=== PATIENT | male | born 1935 | race Caucasian/White ===

== ENCOUNTER 2016-07-25 11:47 | Observation (INO) | payer MEDICARE ==
[~2016-07-25] VITALS: Ht 182.9 cm; Wt 83.0 kg
[2016-07-25] VITALS (8 sets, daily range): BP systolic 96–118; BP diastolic 67–81; PULSE 60–64; RESP 14–20; O2SAT 95–100
[~2016-07-25 11:47] MED LIST: AMIO200T PO; ASPI-973 PO; DOXY100C2 PO; FUR20 PO; HYDR12.55 PO; LOPE1TAB13 PO; LORA10CA PO; METO25TA6 PO; NITR0.4T6 SL; POTA20TA16 PO; SIMV40TA5 PO
--- NOTE | 2016-07-25 12:01 | ED.REPORT ---
HPI-Chest Pain 40 and Over Date of Service Jul 25, 2016 ED Provider: Johs Lott Patient is a 80 year old male with an extensive cardiac history who presents to the ED via EMS complaining of waxing and waning midline chest pain onset one week ago. His chest pain is worse with exertion and lasts for about 5 minutes after he begins to relax. Associated symptoms include vertigo, SOB, tingling in his legs from the knee down, and lightheadedness. He denies palpitations, cough , or any other symptoms. He has had similar chest pain previously but reports that Nitro does not provide relief. It was believed that his previous chest pain was due to his pacemaker. He regularly experiences vertigo and walks with a cane to prevent falls. Nursing Notes Stated Complaint: CHEST PAIN Chief Complaint: Chest Pain Nursing Notes Reviewed: Yes Allergies: Coded Allergies: lisinopril (Unverified Allergy, Unknown, 07/25/16) Patient states lisinopril makes him cough but he is currently taking lisinopril and denies having a cough Scheduled Acyclovir (Acyclovir) 400 Mg Tablet 400 MG PO BID Amiodarone (Amiodarone) 200 Mg Tablet 200 MG PO DAILY Aspirin (Aspirin) 81 Mg Tablet 81 MG PO DAILY Furosemide (Furosemide) 20 Mg Tab 20 MG PO DAILY Hydrochlorothiazide (Hydrochlorothiazide) 12.5 Mg Tablet 12.5 MG PO DAILY Loperamide/Simethicone (Imodium Multi-Symptom Rel Cplt) 1 Each Tablet 2 EACH PO AFTER EACH LOOSE Take 2 tablets orally with first loose stool, and one tablet 2 mg orally, after each next bowel movement, do not exceed 16 mg in 24 hours. Metoprolol Tartrate (Metoprolol Tartrate) 25 Mg Tablet 12.5 MG PO BID Potassium Chloride (Potassium Chloride) 20 Meq Tab.er.prt 20 MEQ PO BID TAKE WITH FOOD Simvastatin (Simvastatin) 40 Mg Tablet 20 MG PO HS Scheduled PRN Nitroglycerin SL (Nitroglycerin SL) 0.4 Mg Tab.subl 0.4 MG SL Q5MIN PRN PRN For Chest Pain General Time Seen by MD: 12:00 Chief Complaint Chest pain Hx Obtained From: Patient Arrived By: Ambulance Sudden in Onset?: Yes Onset Occurred: 1 week ago Symptom Duration: Since onset Past Medical History Past Medical History Notes: ED visit 9/28/15 for AICD firing and CP, AICD interrogated and discharge was for tachydysrhythmia, patient's furosemide was discontinued, patient is advised to continue aspirin lactone and HCTZ Past Medical History Per old reports: Admit in 07/2014 for AICD firing from [facility] Coronary artery disease, with a history of non ST elevation [place] in 2008 with balloon angioplasty and stenting of the LAD. 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 Dyslipidemia. Untreated sleep apnea. Uvulectomy. [place] x2 with angioplasty Right ventricular aneurysm Reports: Cancer (melanoma on back), Hyperlipidemia, Hypertension Past Surgical History Ablation of right ventricular apical ventral tachycardia 02/26/2015 Uvulectomy Aortic Valve Replacement - bioprosthetic Reports: Cholecystectomy Reports: Pacemaker insertion Smoking History Former Smoker Social History Alcohol Use: "Social" Drug Use: Denies drug use Other Social History: Good social support, , Local resident Ambulatory Status Cane Review of Systems +tingling sensation in legs Constitutional: Denies: Fever Respiratory: Reports: Shortness of breath, Denies: Non-productive cough Cardiovascular: Reports: Chest pain, Denies: Palpitations Neurologic: Reports: Lightheaded Complete sys rev & neg: except as marked. Physical Exam Initial Vital Signs Vital Signs (First) Date Time Temp Pulse Resp B/P Pulse Ox O2 Delivery O2 Flow Rate FiO2 07/25/16 12:05 36.9 61 14 99/67 100 Room Air Initial VS: Reviewed Head / Eyes: Atraumatic, Normocephalic Neck: Full range of motion Skin: Warm, Dry Neurologic: Alert, Oriented, Nonfocal Psychiatric: Mood/affect normal, Behavior normal, Normal thought content General/Constitutional: Awake, Alert, No acute distress, Well appearing, Well developed Respiratory / Chest: No respiratory distress Pacemaker insertion L upper chest wall Cardiovascular: Heart rate NL Abdomen: Soft, Non-tender Interpretation & Diagnostics Medtr[employer] interrogation reveals no episodes of vfib or vtach Lab Results Interpretation Result Diagram: 07/25/16 1200 07/25/16 1200 Test 07/25/16 12:00 07/25/16 12:01 07/25/16 14:10 White Blood Count 8.0th/mm3 (3.8-10.1) Red Blood Count 4.89mil/mm3 (4.40-5.80) Hemoglobin 13.3g/dL (13.8-17.2) Hematocrit 42.7% (41.0-50.0) Mean Corpuscular Volume 87.3fL (81-100) Mean Corpuscular Hemoglobin 27.2pg (27.0-35.0) Mean Corpuscular Hemoglobin Concent 31.1% (32.0-37.0) Red Cell Distribution Width 15.4% (12.3-15.4) Platelet Count 223bil/L (150-400) Neutrophils (%) (Auto) 70.7% (40-74) Lymphocytes (%) (Auto) 18.3% (14-46) Monocytes (%) (Auto) 8.5% (4-12) Eosinophils (%) (Auto) 1.6% (0-5) Basophils (%) (Auto) 0.5% (0-3) D-Dimer 1.9mg/L (<0.50) Sodium Level 140mEq/L (134-144) Potassium Level 4.1mEq/L (3.5-5.2) Chloride Level 99mEq/L (97-108) Carbon Dioxide Level 26mmol/L (18-29) Blood Urea Nitrogen 24mg/dL (8-27) Creatinine 1.27mg/dL (0.76-1.27) Estimat Glomerular Filtration Rate 58mL/min (>59) Glucose Level 118mg/dL (60-99) Calcium Level 9.4mg/dL (8.5-10.1) Magnesium Level 2.3mg/dL (1.6-2.6) Total Bilirubin 1.5mg/dL (0.0-1.2) Aspartate Amino Transf (AST/SGOT) 26U/L (0-50) Alanine Aminotransferase (ALT/SGPT) 18U/L (0-44) Alkaline Phosphatase 114U/L (25-160) Pro-B-Type Natriuretic Peptide 810.8pg/mL (0-486) Total Protein 7.8g/dL (6.4-8.4) Albumin 4.5g/dL (3.4-5.0) Urine Color Straw (YELLOW) Urine Appearance Hazy (CLEAR,HAZY) Urine pH 6.0 (5.0-8.0) Urine Specific [place] 1.015 (1.003-1.035) Urine Protein Negativemg/dL (NEG,TRACE) Urine Glucose (UA) Negativemg/dL (NEGATIVE) Urine Ketones Negativemg/dL (NEGATIVE) Urine Occult Blood Negative (NEGATIVE) Urine Nitrite Negative (NEGATIVE) Urine Bilirubin Negative (NEGATIVE) Urine Urobilinogen Normalmg/dL (NORMAL) Urine Leukocyte Esterase Negative (NEGATIVE) Urine RBC 0-2/hpf (0-2) Urine WBC 0-5/hpf (0-5) Urine Epithelial Cells Occasional/hpf (NONE-MOD) Urine Crystals None seen (NONE SEEN) Urine Bacteria None/hpf (NONE-FEW) Urine Hyaline Casts Occasional/lpf (NONE) Urine Granular Casts None seen (NONE SEEN) Urine Waxy Casts None seen (NONE SEEN) Urine Red Blood Cell Casts None seen (NONE SEEN) Urine White Blood Cell Casts None seen (NONE SEEN) Urine Mucus None seen (None Seen) Urine Trichomonas None seen (NONE SEEN) Urine Yeast None (NONE SEEN) Urinalysis Comment None Urine Culture Reflexed Not indicated Hold Urine Received (Received) Activated Partial Thromboplast Time 25.4sec (22.8-33.0) Troponin T < 0.010ug/L (0.0-0.011) ECG Interpretation ECG Interpretation: paced rhythm rate 60 Time: 12:53 Interpreted by: ED physician X-Ray Chest Interpretation Chest Xray Interpretation: IMPRESSION: No acute cardiopulmonary disease. Dictated by: Kalen Chaudhary [facility] Interpreted: Michael Marcial MD on 07/25/2016 at 12:50 Transcribed by: HELENA on 07/25/2016 at 12:50 View: Portable, 1 view Interpretation / Wet Read by: Interpret - Radiologist CT Chest Interpretation IMPRESSION: 1. No pulmonary embolus. 2. No acute lung opacities. 3. 2.3 x 1.3 cm right adrenal adenoma. 4. Hypo-attenuating lesion with central calcification in the left lobe liver. Lesion cannot be definitively characterize without the benefit of intravenous contrast. Recommend dedicated CT scan utilizing multiphase hepatic protocol for further evaluation. 4. 1.3 cm hypoattenuating lesion in the right kidney which may represent a cyst. Evaluation time of multiphase CT scan of the liver is recommended. 5. Atherosclerosis including the coronary vasculature. Dictated by: Clau Duff MD, PhD on 07/25/2016 at 15:17 Approved by: Clau Duff MD, PhD on 07/25/2016 at 15:17 Study type: CT pulm angiogram Interpretation / Wet Read by: Interpret - Radiologist Re-Eval/Medical Decision Med Decision/Clinical Course Concern for unstable angina versus other potential causes. Patient will be heparinized in the ER. Pain is adequately controlled with morphine and some nitroglycerin. Patient will be admitted and followed by cardiology. Time of Eval: 13:11 Re-Evaluation/Progress Note: Patient reports that he was diagnosed with melanoma one year ago. It is on his back directly behind where his chest pain is. Time of Eval: 13:54 Re-Evaluation/Progress Note: Rechecked patient. He states that he feels lightheaded. Discussed desire for admission. Patient understands and agrees with plan. All questions addressed at this time. Consultation #1: Referral / Consult Name: Mahin Berg MD Consulted With: Cardiology Call Returned at: 14:01 Supervisor Finishing Department: Agrees with eval, Agrees with plan Note: Discussed patient's case. Agrees to consult. Suggests Heprin. Consultation #2: Referral / Consult Name: Dena Naylor MD Consulted With: Hospitalist Call Returned at: 14:34 Supervisor Finishing Department: Will see patient, Agrees with eval, Agrees with plan, Accepts admit Note: Discussed patient's case, accepts admit. Counseled Regarding: Diagnosis, Lab results, Need for admission Discharge & Departure Primary Impression: Chest pain Additional Impression: Near syncope Disposition: ADMITTED TO HOSPITAL Referrals: Jorge Xie MD (PCP) Crit Care Except Billable Proc Time Spent: 30-74 minutes Services Performed: Patient management by me, Time spent at bedside, Reviewing test results Critical Care Notes: See MDM Scribe Attestation Portions of this note were transcribed by Laura Sullivan. I, Dr. Lott personally performed the history, physical exam and medical decision-making; I reviewed and confirmed the accuracy of the information in the transcribed note. Signed by: Laura Sullivan 07/25/16, [id number] copies to: Jorge Xie MD, Timothy S DO Jul 25, 2016 12:01 LAURA SULLIVAN Jul 25, 2016 12:22
[2016-07-25] MEDS ORDERED: Ondansetron 2 mg/mL 2 mL Inj IVPUSH ONE (12:15)
[2016-07-25] MEDS ORDERED: Nitroglycerin 2% 1 Gm Ointment TOPICAL ONE (12:15)
[2016-07-25 12:32] LABS: BASOPHILS % (AUTO) 0.5 % (0-3); EOSINOPHILS % (AUTO) 1.6 % (0-5); MONOCYTES % (AUTO) 8.5 % (4-12); Mean Corpuscular Hemoglobin 27.2 pg (27.0-35.0); Mean Corpuscular Volume 87.3 fL (81-100); NEUTROPHILS % (AUTO) 70.7 % (40-74); Platelet Count 223 bil/L (150-400)
[2016-07-25 12:40] LABS: TROPONIN T 0.01 ug/L (0.0-0.011)
[2016-07-25 12:51] LABS: Magnesium 2.3 mg/dL (1.6-2.6)
--- NOTE | 2016-07-25 12:51 | DRSVH ---
PROCEDURE: X-RAY CHEST ONE VIEW, PORTABLE ([id number]) INDICATIONS: chest pain TECHNIQUE: One view of the chest was acquired. COMPARISON: [facility], CR, XR CHEST 2VW, 10/27/2015, 6:45. [facility], CR, XR CHEST 1VW (PORTABLE), 10/26/2015, 12:40. FINDINGS: Surgical changes and devices: Stable positioning of left chest AICD. Lungs and pleura: No pleural effusions or pneumothorax. Lungs are clear. Mediastinum: Mediastinal contours appear normal. Heart size is prominent. Bones and chest wall: No suspicious bony lesions. Overlying soft tissues appear unremarkable. IMPRESSION: No acute cardiopulmonary disease. Dictated by: Kalen Chaudhary RRCaro Interpreted: Michael Marcial MD on 07/25/2016 at 12:50 Transcribed by: HELENA on 07/25/2016 at 12:50 Approved by: Michael Marcial M.D. on 07/29/2016 at 11:33
[2016-07-25] MEDS ORDERED: Heparin 25K Unit/500mL 0.45 NS 25,000 UNIT in IV Premix 1 EACH IV ONE (14:00)
[2016-07-25] MEDS ORDERED: Heparin 5,000 Unit/mL Inj IVPUSH ONE (14:00)
[2016-07-25 15:15] LABS: APPEARANCE,URINE HAZY (CLEAR,HAZY); COLOR,URINE STRAW (YELLOW); OCCULT BLOOD,URINE NEGATIVE (NEGATIVE); UROBILINOGEN,URINE NORMAL (NORMAL)
--- NOTE | 2016-07-25 15:18 | DRSVH ---
PROCEDURE: CT ANGIO CHEST PULMONARY EMBOLISM ([id number]) INDICATIONS: chest pain, cancer, elevated ddimer TECHNIQUE: After the administration of intravenous contrast, 2 mm thick sections acquired from the pulmonary api philip to the posterior costophrenic angles. 3-dimensional maximum intensity projection (MIP) coronal a nd sagittal reformats were then acquired through the thorax. For radiation dose reduction, the follo wing was used: automated exposure control, adjustment of mA and/or kV according to patient size. COMPARISON: None. FINDINGS: Image quality: Excellent. Pulmonary arteries: Pulmonary arteries are normal in size, and demonstrate no intraluminal filling d efects to suggest central pulmonary embolism. Lungs and pleura: Lungs are clear. No pleural effusions or pneumothorax. Central and peripheral ai rways are patent. Mediastinum: Left chest wall cardiac pacer is noted. Aortic valve prosthesis is noted. Heart size is normal, without pericardial effusion. Dense atherosclerotic calcifications within the coronary vascul ature. No mediastinal or hilar adenopathy. Thoracic aorta is normal in caliber and enhancement. Eso phagus is normal in caliber, without hiatal hernia. Bones and chest wall: No suspicious bony lesions. Ribs and thoracic spine appear intact throughout. Thyroid gland is within normal limits. No axillary or supraclavicular adenopathy. Abdomen: There is a 2.3 x 1.3 cm low-density right adrenal nodule has imaging characteristics most co mpatible with an adenoma. Exophytic, hypo-attenuating lesion noted in the superior pole of the right kidney which may represent a cyst, however lesion cannot be definitively characterize without benefit of intravenous contrast. There is a 1.9 x 3.7 cm hypoattenuating lesion with central calcification i n the anterior margin of the left lobe of the liver. Desiccation of the tail of pancreas compatible s equela chronic pancreatitis.. IMPRESSION: 1. No pulmonary embolus. 2. No acute lung opacities. 3. 2.3 x 1.3 cm right adrenal adenoma. 4. Hypo-attenuating lesion with central calcification in the left lobe liver. Lesion cannot be defini tively characterize without the benefit of intravenous contrast. Recommend dedicated CT scan utilizin g multiphase hepatic protocol for further evaluation. 4. 1.3 cm hypoattenuating lesion in the right kidney which may represent a cyst. Evaluation time of m ultiphase CT scan of the liver is recommended. 5. Atherosclerosis including the coronary vasculature. Dictated by: Clau Duff MD, PhD on 07/25/2016 at 15:17 Approved by: Clau Duff MD, PhD on 07/25/2016 at 15:17
[2016-07-25] MEDS ORDERED: ACYC400T2 PO (15:20)
--- NOTE | 2016-07-25 15:40 | PCM.HPMED ---
Subjective Date of Service Jul 25, 2016 Primary Provider: Admitting Physician: Primary Care Physician: Jorge Xie MD Attending Physician: Chief Complaint: Chest pain HISTORY was OBTAINED FROM PATIENT / MEDITECH NOTES History of present illness 72-year-old male with chest pain, waxing and waning x 1 week, associated SOB, across the upper chest dull ache anterior wall, better w/ nitroglycerine. Additional right lower rib chest dull ache. no heavy lifting. no leg swelling. ongoing lighteheadness currently. In the ER status post nitro paste, BP 96/81, heart rate 64, 99% on room air. BNP 810, motion picture operator see the patient in the morning, CT PE was negative Review of Systems - none of the following - F/C/sick contact / wt change/ RODRIGUEZ / cough / / / rash hearing deficit uses cane - chronic vertigo, chronic leg paresthesia FAMILY HX MOTHER NE SOCIAL HX distant smoker MEDICATIONS Amiodarone (Amiodarone) 200 Mg Tablet 200 MG PO BID Aspirin (Aspirin) 81 Mg Tablet 81 MG PO DAILY Doxycycline Hyclate (Doxycycline Hyclate) 100 Mg Capsule 100 MG PO DAILY Furosemide (Furosemide) 20 Mg Tab 20 MG PO DAILY Hydrochlorothiazide (Hydrochlorothiazide) 12.5 Mg Tablet 12.5 MG PO DAILY Loperamide/Simethicone (Imodium Multi-Symptom Rel Cplt) 1 Each Tablet 2 EACH PO AFTER EACH LOOSE Take 2 tablets orally with first loose stool, and one tablet 2 mg orally, after each next bowel movement, do not exceed 16 mg in 24 hours. Loratadine (Claritin) 10 Mg Capsule 10 MG PO DAILY Metoprolol Tartrate (Metoprolol Tartrate) 25 Mg Tablet 12.5 MG PO BID Potassium Chloride (Potassium Chloride) 20 Meq Tab.er.prt 20 MEQ PO BID TAKE WITH FOOD Simvastatin (Simvastatin) 40 Mg Tablet 20 MG PO HS Miscellaneous Medications Nitroglycerin SL (Nitroglycerin SL) 0.4 Mg Tab.subl 0.4 MG SL Past Medical History: V. tach 2012, pacemaker, defibrillator, ablation, ED visit 04/06/15 for AICD firing and CP-furosemide was discontinued, continue aspirin spironolactone and HCTZ Admit in 07/2014 for AICD firing from [facility] NSTEMI 2008 stenting LAD. Aortic stenosis with AVR replacement (bioprosthetic) Arthritis Dyslipidemia.HTN Untreated sleep apnea. Uvulectomy. [place] x2 with angioplasty Right ventricular aneurysm Cancer (melanoma on back - did not want further invasive testing as recommended by planer setup operator Cholecystectomy Cataracts left Sinus congestion BPH Depression Allergies Coded Allergies: lisinopril (Unverified Allergy, Unknown, 07/25/16) Patient states lisinopril makes him cough but he is currently taking lisinopril and denies having a cough PMH Social History Hx Alcohol Use: Yes Hx Substance Use: No Hx Tobacco Use: Yes (quit 19 yrs ago) Smoking Status: Former Smoker Exam Vital Signs Vital Sign - Last Date Time Temp Pulse Resp B/P Pulse Ox O2 Delivery O2 Flow Rate FiO2 07/25/16 14:16 36.8 61 20 96/81 99 Room Air Lab and Diagnostics Labs Exam on admission on RA NAD A and O x 3 mood affect WNL NC/AT no icterus no injected eyes EOMI PERRL /no pharyngeal lesions/ no oral lesions / hearing impaired w/ hearing aide Supple neck CTAB equal chest rise / no accessory muscle use / speaks in full sentences / no rrw RRR S1 S2 / no mrg / 2+ radial pulses Soft nt nd + BS no hepatosplenomegaly No edema no cyanosis no ecchymosis of lower extremities No rash / no jaundice ROBERSON no tenderness to Right lower chest pressure EKG vpaced CXR neg acute UA pending LFT bili 1.5 Trop neg x 2 within 2 hours EKG vpaced IMPRESSION: 1. No pulmonary embolus. 2. No acute lung opacities. 3. 2.3 x 1.3 cm right adrenal adenoma. 4. Hypo-attenuating lesion with central calcification in the left lobe liver. Lesion cannot be definitively characterize without the benefit of intravenous contrast. Recommend dedicated CT scan utilizing multiphase hepatic protocol for further evaluation. 4. 1.3 cm hypoattenuating lesion in the right kidney which may represent a cyst. Evaluation time of multiphase CT scan of the liver is recommended. 5. Atherosclerosis including the coronary vasculature. Result Diagram: 07/25/16 1200 07/25/16 1200 Assessment & Plan Active issues and reason for admission 80-year-old man with ACS admission history of V. tach/pacer/aortic bioprosthetic valve/LAD stent. Chest pain -- Heparin drip, Nitropaste limited by low blood pressure, morphine, serial troponin, echo pending, statin -- Dr. schuster /cardiology pending Elevated bilirubin/liver nodule noted, known melanoma, declined further evaluation as recommended by his planer setup operator --discuss w/ radiologist in morning for recommendations of serial CT, patient will decline invasive procedures -- Follow up with outpatient PCP/GI Adrenal and kidney nodule/cyst, -- Monitor follow-up as outpatient. Chronic issues known prior to admission, present on admission V. tach 2012, pacemaker, defibrillator, ablation, ED visit 04/06/15 for AICD firing and CP-furosemide was discontinued, continue aspirin spironolactone and HCTZ Admit in 07/2014 for AICD firing from [facility] NSTEMI 2008 stenting LAD. Aortic stenosis with AVR replacement (bioprosthetic) Arthritis Dyslipidemia.HTN Untreated sleep apnea. Uvulectomy. [place] x2 with angioplasty Right ventricular aneurysm Cancer (melanoma on back) Cholecystectomy Cataracts left Sinus congestion BPH Depression Chronic pancreatitis on CT Diet nothing by mouth midnight DVT prophylaxis heparin drip already Code full Disposition obs Assessment and plan were discussed with patient. Dena Naylor MD Jul 25, 2016 15:40
--- NOTE | 2016-07-25 17:40 | NUR ---
Arrival to unit Patient arrived to unit in a stable condition. Heparin gtt currently infusing at max rate of 1,000 units per hour. All vital signs stable and within normal limits. Reports 2/10 dull chest pain. Nitro paste on.
[2016-07-26] VITALS (7 sets, daily range): BP systolic 101–125; BP diastolic 66–84; PULSE 60–67; RESP 16–20; O2SAT 96–99
[2016-07-26] MEDS ORDERED: Heparin 25K Unit/500mL 0.45 NS 25,000 UNIT in IV Premix 1 EACH IV SCH (00:15)
[2016-07-26] MEDS ORDERED: Heparin Protocol Boluses IVPUSH PRN (00:25)
[2016-07-26 03:01] LABS: BASOPHILS % (AUTO) 0.4 % (0-3); EOSINOPHILS % (AUTO) 1.6 % (0-5); MONOCYTES % (AUTO) 8.5 % (4-12); Mean Corpuscular Hemoglobin 26.6 pg (27.0-35.0); Mean Corpuscular Volume 86.4 fL (81-100); NEUTROPHILS % (AUTO) 62.1 % (40-74); Platelet Count 193 bil/L (150-400)
[2016-07-26 03:46] LABS: Magnesium 2.4 mg/dL (1.6-2.6); TROPONIN T 0.01 ug/L (0.0-0.011)
--- NOTE | 2016-07-26 04:25 | NUR ---
Heparin Gtt/orders. pt arrived on floor w heparin Gtt @ 1000, set of labe ordered , no Heparin Cardiac Protocol ordered , paged Hospitalist for orders , slight in adjustment of Gtt due to lack of odreds, . last Ptt heparin, 32. following protocol . Pt is A&O x3, using call light appropriately. room air , substernal chest pain has subsided to 1/10, NPO pending possible labor relations officer in AM . Heparin presently running @ 1200 U/Hr. Tele: V-paced
--- NOTE | 2016-07-26 10:20 | NUR ---
Case Management: UVALDO and Medicare Part D to pt. 09:25. Екатерина FINN, RN
--- NOTE | 2016-07-26 13:07 | DRSVH ---
[facility] [address] [place] [address] Echocardiogram Report Name: MARGARETH LOCKETT MStudy Date: 07/26/2016 Height: 72 in Hospital Exam Location: [facility] Weight: 184 lb Gender: Male BSA: 2.1 m2 : 1935 Age: 80 yrs BP: 105/69 mmHg Reason For Study: Chest pain Ordering Physician: Performed By: Freedom Ryan Referring Physician: JAMES BUNDY Interpretation Summary The left ventricular cavity is small. Left ventricular systolic function is mild to moderately reduced. The ejection fraction is estimated to be 40-45%, which is unchanged since prior study. There is a significant dyssynchronous contraction pattern due to the paced rhythm. Flattened septum is consistent with RV volume overload. The right ventricle is severely dilated. There is a pacemaker lead in the right ventricle. Right ventricular systolic function is severely reduced. This is unchanged compared to the previous study. The right ventricular systolic pressure is estimated at 25 mmHg assuming a right atrial pressure of 15 mm Hg. The left atrial size is normal. The right atrium is severely dilated. There is a bioprosthetic aortic valve. The gradients through the prosthetic aortic valve are within the normal range for this type of valve. There is severe tricuspid regurgitation. There has been no significant change since the previous study. There is no other significant valvular heart disease. The ascending aorta is mildly enlarged. Procedure: A two-dimensional transthoracic echocardiogram with color flow and Doppler was performed. The study quality was technically good. Comparison is made with the echocardiogram of 03/20/15. The patient has a paced rhythm. Left Ventricle: The left ventricular cavity is small. There is borderline concentric left ventricular hypertrophy. Left ventricular systolic function is mild to moderately reduced. The ejection fraction is estimated to be 40- 45%. There is a significant dyssynchronous contraction pattern due to the paced rhythm. Flattened septum is consistent with RV volume overload. Right Ventricle: The right ventricle is severely dilated. There is a pacemaker lead in the right ventricle. Right ventricular systolic function is severely reduced. This is unchanged compared to the previous study. Atria: The left atrial size is normal. The right atrium is severely dilated. There is no Doppler evidence for an atrial septal defect. Mitral Valve: The mitral valve is grossly normal. There is mild mitral annular calcification. There is trace mitral regurgitation. Aortic Valve: There is a bioprosthetic aortic valve. The gradients through the prosthetic aortic valve are within the normal range for this type of valve. No aortic regurgitation is present. Tricuspid Valve: The tricuspid annulus is dilated. There is severe tricuspid regurgitation. There has been no significant change since the previous study. The right ventricular systolic pressure is estimated at 25 mmHg assuming a right atrial pressure of 15 mm Hg. Pulmonic Valve: The pulmonic valve leaflets are thin and pliable; valve motion is normal. There is trace pulmonic regurgitation. There is no other significant valvular heart disease. Great Vessels: The aortic root is normal size. The ascending aorta is mildly enlarged. The pulmonary artery is normal size. The IVC is dilated (diameter is greater than 2.1 cm) and it collapses less than 50% with a sniff. This suggests a high right atrial pressure of 15 mm Hg. Pericardium/ Pleura There is no pericardial effusion. There is no pleural effusion. MMode/2D Measurements & Calculations LVIDd: 5.3 cm RA long axis LVOT diam LVIDs: 3.5 cm LA A2 area: 13.9 cm FS: 33.3 % LA A4 area: 24.0 cm RA area AoV Opening EPSS: 1.1 cm LA length (vol): 5.1 cm IVSd: 1.1 cm LA vol: 55.5 ml : 41.1 cm asc Aorta LVPWd: 0.99 cm LA vol index RA vol Diam: 3.6 cm : 191.ml RA IVC diam: 2.3 cm : 93.1 mm2 LV gonzalez. diameter/BSA LV sys. diameter/BSA (cm/m^2): 2.6 (cm/m^2): 1.7 Doppler Measurements & Calculations Ao V2 max: 243.7 cm/secMV E max girish MV E/A: 0.95 TR max girish Ao max P.8 mmHg : 73.9 cm/sec Med Peak E' Girish : 161.1 cm/sec Ao mean P.4 mmHg MV A max girish TR max PG LVOT Max Girish : 77.5 cm/sec E/E' med: 24.2 : 10.4 mmHg : 70.2 cm/sec Lat Peak E' Girish PA V2 max RAZIA(I,D): 0.88 cm : 56.5 cm/sec sev ratio: 0.28 E/E' lat: 16.3 PA mean PG E/e' average : 0.71 mmHg Pulm A Revs Dur MV dec time: 0.23 sec Ao V2 mean LV V1 max PG PA V2 mean : 172.7 cm/sec : 41.0 cm/sec Ao V2 VTI: 48.4 cmLV V1 VTI PA pr(Accel) RAZIA(V,D): 0.91 cm2: 13.5 cm : 46.3 mmHg RAZIA indexed to BSA (cm^2/m^2): 0.43 Reading Physician:ANALY
--- NOTE | 2016-07-26 15:37 | PCM.DIMED ---
Discharge Instructions Date of Service Jul 26, 2016 Dates of Hospitalization Jul 25, 2016 at 16:03 Discharge Diagnosis Discharge Diagnosis Chest pain; presyncope (feeling faint); congestive heart failure Medication Instructions No changes in your medications. If you experience recurrence of chest pain you should rest and take nitroglycerin, if this last more than 5 minutes. If 2 nitroglycerin tablets over 10-15 minutes do not relieve this discomfort he should call 911. Diet Heart Healthy Activity No restrictions Call your provider Chest pain Patient Instructions You should contact Dr. Norman's office in the morning to arrange prompt follow- up. Follow-up Provider: Omari Norman MD Follow-up with PCP in: Other (as soon as possible.) Provider: Jorge Xie MD Follow-up in: Other (routine next visit) Wood Andrade MD Jul 26, 2016 15:37
--- NOTE | 2016-07-26 18:37 | NUR ---
HEPARIN/PLAN Heparin gtt discontinued per Dr. Andrade following recommendations from cardiology. Patient was going to be discharged, but this decision was changed, as patient needs special labs in the morning. He and his are aware of the plan, his plans to be present at around 1030 for discharge instructions. Will continue to monitor vitals, and for recurring s/s of CP. Addendum: 07/26/16 at 1842 by ISABELA OLIVERA RN Patient will follow-up as outpatient for cardiac issues, since labs/EKG/etc... have been negative.
--- NOTE | 2016-07-26 18:52 | PCM.PNMED ---
Subjective Date of Service Jul 26, 2016 Subjective 80-year-old man with coronary artery disease, aortic valve replacement, congestive heart failure and history of ventricular tachycardia presents with chest pain. On the day of discharge, He experienced several episodes of transient bilateral upper chest pain with no associated symptoms except feeling faint. He is ruled out by troponin and EKG was unremarkable. He has had no recurrence of these symptoms. Feels generally well today. Exam Vital Signs Vital Sign - Last Date Time Temp Pulse Resp B/P Pulse Ox O2 Delivery O2 Flow Rate FiO2 07/26/16 11:39 36.6 62 20 105/69 96 Room Air Intake and Output 07/25/16 07/25/16 07/26/16 Cumulative From/Thru 15:00 23:00 07:00 07/25/16 12:05 - 07/26/16 06:09 Intake Total 589 ml 589 ml Output Total 500 ml 500 ml Balance 89 ml 89 ml Intake Oral 300 ml 300 ml IV Total 289 ml 289 ml Output Urine Total 500 ml 500 ml # Voids 3 3 Exam General: Generally healthy elderly man in no acute distress HEENT: sclerae anicteric, oral mucosa moist Neck: no JVD Chest: clear to auscultation, pacemaker left upper chest Cardiac: S1S2, midsystolic sound or brief murmur Abdomen: BS normal, non-tender, no hepatojugular reflux Extremities: No edema Neuro: A&O, cranial nerves symmetric, motor strength 5/5, coordination normal IVs and Medications Medications Reviewed: Medications were reviewed in detail Lab and Diagnostics Result Diagram: 07/26/1620907/26/16 021 X-Rays, CTs and MRIs PROCEDURE: X-RAY CHEST ONE VIEW, PORTABLE ([id number]) IMPRESSION: No acute cardiopulmonary disease. Dictated by: Kalen Chaudhary RRA Interpreted: Michael Marcial MD on 07/25/2016 at 12:50 PROCEDURE: CT ANGIO CHEST PULMONARY EMBOLISM ([id number]) FINDINGS: Image quality: Excellent. Pulmonary arteries: Pulmonary arteries are normal in size, and demonstrate no intraluminal filling defects to suggest central pulmonary embolism. Abdomen: There is a 2.3 x 1.3 cm low-density right adrenal nodule has imaging characteristics most compatible with an adenoma. Exophytic, hypo-attenuating lesion noted in the superior pole of the right kidney which may represent a cyst , however lesion cannot be definitively characterize without benefit of intravenous contrast. There is a 1.9 x 3.7 cm hypoattenuating lesion with central calcification in the anterior margin of the left lobe of the liver. Desiccation of the tail of pancreas compatible sequela chronic pancreatitis.. IMPRESSION: 1. No pulmonary embolus. 2. No acute lung opacities. 3. 2.3 x 1.3 cm right adrenal adenoma. 4. Hypo-attenuating lesion with central calcification in the left lobe liver. Lesion cannot be definitively characterize without the benefit of intravenous contrast. Recommend dedicated CT scan utilizing multiphase hepatic protocol for further evaluation. 4. 1.3 cm hypoattenuating lesion in the right kidney which may represent a cyst. Evaluation time of multiphase CT scan of the liver is recommended. 5. Atherosclerosis including the coronary vasculature. Dictated by: Clau Duff MD, PhD on 07/25/2016 at 15:17 . 12-lead ECG AV paced rhythm with nonspecific intraventricular conduction delay. Rate 60. No obvious ST or T-wave changes. Cardiac Echo Impressions Echocardiogram Report Name: MARGARETH LOCKETT Study Date: 07/26/2016 Interpretation Summary The left ventricular cavity is small. Left ventricular systolic function is mild to moderately reduced. The ejection fraction is estimated to be 40-45%, which is unchanged since prior study. There is a significant dyssynchronous contraction pattern due to the paced rhythm. Flattened septum is consistent with RV volume overload. The right ventricle is severely dilated. There is a pacemaker lead in the right ventricle. Right ventricular systolic function is severely reduced. This is unchanged compared to the previous study. The right ventricular systolic pressure is estimated at 25 mmHg assuming a right atrial pressure of 15 mm Hg. The left atrial size is normal. The right atrium is severely dilated. There is a bioprosthetic aortic valve. The gradients through the prosthetic aortic valve are within the normal range for this type of valve. There is severe tricuspid regurgitation. There has been no significant change since the previous study. There is no other significant valvular heart disease. The ascending aorta is mildly enlarged. . Assessment & Plan 80-year-old man with ACS admission history of V. tach/pacer/aortic bioprosthetic valve/LAD stent. # Chest pain. Patient is ruled out. Symptoms of chest discomfort at rest with presyncope are consistent with dysrhythmia, angina, or noncardiac cause. Case was discussed with business management consultant. This patient has notoriously complex cardiac history and would not benefit from nuclear medicine perfusion scan or even catheterization. -- Discontinue Heparin drip, -- Plan to discharge with prompt outpatient follow-up with Dr. Norman # Congestive heart failure. Chronic systolic heart failure. BNP 811 is lower than most of his previous values. Examine radiology does not suggest acute CHF exacerbation as an explanation of chest pain complaint. - No changes in cardiac medications # Liver nodule, acutely noted on CT angiogram. Total bilirubin is mildly elevated other transaminases and alkaline phosphatase are normal. -- In light of dilated for CT angiogram we will defer repeat imaging to his PCP -- Patient is advised of need for follow-up evaluation of this lesion. # Adrenal nodule. A dedicated contrast study was not performed to assess density and washout but radiologic appearance is reported as benign adenoma. In light of his cardiac condition assessment for hormonal hypersecretion seems warranted. He is not hypertensive, hence evaluation for aldosteronism is not indicated. -- Low-dose dexamethasone suppression test tonight: Dexamethasone 1 mg at 2300 hour, plasma cortisol at 0800 hour in a.m. -- Plasma metanephrines in a supine position in the morning -- CT scan follow-up for nodule growth is indicated -- They consider dedicated adrenal nodule protocol at future scan # Kidney cyst - does not appear to be high risk for neoplasia - Plan follow-up imaging with PCP # Cancer (melanoma on back) - recently excised skin lesion. - Consider further workup of liver and adrenal nodules in light of melanoma history. Chronic issues known prior to admission, present on admission V. tach 2012, pacemaker, defibrillator, ablation, ED visit 04/06/15 for AICD firing and CP-furosemide was discontinued, continue aspirin spironolactone and HCTZ Admit in 07/2014 for AICD firing from Vtach NSTEMI 2009 stenting LAD. Aortic stenosis with AVR replacement (bioprosthetic) Arthritis Dyslipidemia.HTN Untreated sleep apnea. Uvulectomy. UT x2 with angioplasty Right ventricular aneurysm Cholecystectomy Cataracts left Sinus congestion BPH Depression Chronic pancreatitis on CT VTE Mechanical Devices: Intermittant Pneumatic CD Time spent 40 minutes spent in patient assessment in care coordination including counseling patient and family at bedside. Wood Andrade MD Jul 26, 2016 15:53
[2016-07-27 00:10] VITALS: BP 112/71; PULSE 71; RESP 19; O2SAT 97
[2016-07-27 03:41] VITALS: BP 97/62; PULSE 62; RESP 19; O2SAT 96
--- NOTE | 2016-07-27 03:49 | NUR ---
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 oral
[2016-07-27 08:41] VITALS: BP 102/59; PULSE 69; RESP 18; O2SAT 96
--- NOTE | 2016-07-27 08:58 | PCM.DC.MED ---
Discharge Summary Date of Service Jul 26, 2016 Dates of Hospitalization Date of Hospital Admission Jul 25, 2016 at 16:03 Date of Discharge: Jul 27, 2016 Providers: Admitting Physician: James Naylor MD Primary Care Physician: Jorge Xie MD Attending Physician: James Naylor MD Diagnosis at Time of Discharge Diagnosis at Time of Discharge Chest pain; presyncope (feeling faint); congestive heart failure Procedures XRay, CTs & MRIs PROCEDURE: CT ANGIO CHEST PULMONARY EMBOLISM ([id number]) FINDINGS: Image quality: Excellent. Abdomen: There is a 2.3 x 1.3 cm low-density right adrenal nodule has imaging characteristics most compatible with an adenoma. Exophytic, hypo-attenuating lesion noted in the superior pole of the right kidney which may represent a cyst , however lesion cannot be definitively characterize without benefit of intravenous contrast. There is a 1.9 x 3.7 cm hypoattenuating lesion with central calcification in the anterior margin of the left lobe of the liver. Desiccation of the tail of pancreas compatible sequela chronic pancreatitis.. IMPRESSION: 1. No pulmonary embolus. 2. No acute lung opacities. 3. 2.3 x 1.3 cm right adrenal adenoma. 4. Hypo-attenuating lesion with central calcification in the left lobe liver. Lesion cannot be definitively characterize without the benefit of intravenous contrast. Recommend dedicated CT scan utilizing multiphase hepatic protocol for further evaluation. 4. 1.3 cm hypoattenuating lesion in the right kidney which may represent a cyst. Evaluation time of multiphase CT scan of the liver is recommended. 5. Atherosclerosis including the coronary vasculature. Dictated by: Clau Duff MD, PhD on 07/25/2016 at 15:17 Cardiac Echo Impression Echocardiogram Report Name: MARGARETH LOCKETT MStudy Date: 07/26/2016 Height: 72 in Hospital Exam Location: [facility] Weight: 184 lb Gender: Male BSA: 2.1 m2 : 1935 Age: 80 yrs BP: 105/69 mmHg Reason For Study: Chest pain Ordering Physician: Performed By: Freedom Ryan Referring Physician: JAMES NAYLOR Interpretation Summary The left ventricular cavity is small. Left ventricular systolic function is mild to moderately reduced. The ejection fraction is estimated to be 40-45%, which is unchanged since prior study. There is a significant dyssynchronous contraction pattern due to the paced rhythm. Flattened septum is consistent with RV volume overload. The right ventricle is severely dilated. There is a pacemaker lead in the right ventricle. Right ventricular systolic function is severely reduced. This is unchanged compared to the previous study. The right ventricular systolic pressure is estimated at 25 mmHg assuming a right atrial pressure of 15 mm Hg. The left atrial size is normal. The right atrium is severely dilated. There is a bioprosthetic aortic valve. The gradients through the prosthetic aortic valve are within the normal range for this type of valve. There is severe tricuspid regurgitation. There has been no significant change since the previous study. There is no other significant valvular heart disease. The ascending aorta is mildly enlarged. . Brief History History of present illness: Patient has a long-standing history of congestive heart failure, status post aortic valve replacement with coronary artery disease in RCA occlusion. He was in his usual state of health until the day of admission. In the afternoon he began to experience episodes of bilateral upper chest and shoulder pain and pressure. These occurred at rest. For the most part they lasted several minutes and resolve spontaneously. He thinks he had approximate 5 episodes of the course the afternoon before presenting to the emergency department. They are not exacerbated by shoulder arm movement. There is no associated dyspnea, diaphoresis or nausea. He felt very faint and weak during these episodes. There was no palpitation. There was no syncope. . Hospital Course # Chest pain. Patient is ruled out. Symptoms of chest discomfort at rest with presyncope are consistent with dysrhythmia, angina, or noncardiac cause. Case was discussed with cisco consultant. This patient has notoriously complex cardiac history and would not benefit from nuclear medicine perfusion scan or even catheterization. -- Discontinue Heparin drip, -- Plan to discharge with prompt outpatient follow-up with Dr. Norman # Congestive heart failure. Chronic systolic heart failure. BNP 811 is lower than most of his previous values. Examine radiology does not suggest acute CHF exacerbation as an explanation of chest pain complaint. - No changes in cardiac medications # Liver nodule, acutely noted on CT angiogram. Total bilirubin is mildly elevated other transaminases and alkaline phosphatase are normal. -- In light of dye load for CT angiogram we will defer repeat imaging of the liver nodule to his PCP -- Patient is advised of need for follow-up evaluation of this lesion. # Adrenal nodule. A dedicated contrast study was not performed to assess density and washout but radiologic appearance is reported as benign adenoma. In light of his cardiac condition assessment for hormonal hypersecretion seems warranted. He is not hypertensive, hence evaluation for aldosteronism is not indicated. -- Low-dose dexamethasone suppression test on 07/26: Dexamethasone 1 mg at 2300 hour, plasma cortisol at 0800 hour in a.m. on 07/27 -- Plasma metanephrines in a supine position in the morning -- CT scan follow-up for nodule growth in 6 months is indicated -- They consider dedicated adrenal nodule protocol at future scan - Primary care provider to follow-up on cortisol and metanephrines; refer to Endocrinology if abnormal # Kidney cyst - does not appear to be high risk for neoplasia - Plan follow-up imaging with PCP # Cancer (melanoma on back) - recently excised skin lesion. - Consider further workup of liver and adrenal nodules in light of melanoma history. Chronic issues known prior to admission, present on admission V. tach 2012, pacemaker, defibrillator, ablation, ED visit 04/06/15 for AICD firing and CP-furosemide was discontinued, continue aspirin spironolactone and HCTZ Admit in 07/2014 for AICD firing from Vtach NSTEMI 2009 stenting LAD. Aortic stenosis with AVR replacement (bioprosthetic) Arthritis Dyslipidemia.HTN Untreated sleep apnea. Uvulectomy. [place] x2 with angioplasty Right ventricular aneurysm Cholecystectomy Cataracts left Sinus congestion BPH Depression Chronic pancreatitis on CT Exam Vital Signs (Last) Date Time Temp Pulse Resp B/P Pulse Ox O2 Delivery O2 Flow Rate FiO2 07/26/16 11:39 36.6 62 20 105/69 96 Room Air Exam General: Generally healthy elderly man in no acute distress HEENT: sclerae anicteric, oral mucosa moist Neck: no JVD Chest: Breathing is unlabored, clear to auscultation, pacemaker left upper chest Cardiac: S1S2, midsystolic sound or brief murmur Abdomen: BS normal, non-tender Extremities: No edema Neuro: A&O, cranial nerves symmetric, motor strength 5/5 Test 07/25/16 12:00 07/25/16 12:01 07/25/16 18:15 07/26/16 02:10 D-Dimer 1.9mg/L (<0.50) Pro-B-Type Natriuretic Peptide 810.8pg/mL (0-486) Urine Color Straw (YELLOW) Urine Appearance Hazy (CLEAR,HAZY) Urine pH 6.0 (5.0-8.0) Urine Specific [place] 1.015 (1.003-1.035) Urine Protein Negativemg/dL (NEG,TRACE) Urine Glucose (UA) Negativemg/dL (NEGATIVE) Urine Ketones Negativemg/dL (NEGATIVE) Urine Occult Blood Negative (NEGATIVE) Urine Nitrite Negative (NEGATIVE) Urine Bilirubin Negative (NEGATIVE) Urine Urobilinogen Normalmg/dL (NORMAL) Urine Leukocyte Esterase Negative (NEGATIVE) Urine RBC 0-2/hpf (0-2) Urine WBC 0-5/hpf (0-5) Urine Epithelial Cells Occasional/hpf (NONE-MOD) Urine Crystals None seen (NONE SEEN) Urine Bacteria None/hpf (NONE-FEW) Urine Hyaline Casts Occasional/lpf (NONE) Urine Granular Casts None seen (NONE SEEN) Urine Waxy Casts None seen (NONE SEEN) Urine Red Blood Cell Casts None seen (NONE SEEN) Urine White Blood Cell Casts None seen (NONE SEEN) Urine Mucus None seen (None Seen) Urine Trichomonas None seen (NONE SEEN) Urine Yeast None (NONE SEEN) Urinalysis Comment None Urine Culture Reflexed Not indicated Hold Urine Received (Received) White Blood Count 6.7th/mm3 (3.8-10.1) Red Blood Count 4.40mil/mm3 (4.40-5.80) Hemoglobin 11.7g/dL (13.8-17.2) Hematocrit 38.0% (41.0-50.0) Mean Corpuscular Volume 86.4fL (81-100) Mean Corpuscular Hemoglobin 26.6pg (27.0-35.0) Mean Corpuscular Hemoglobin Concent 30.8% (32.0-37.0) Red Cell Distribution Width 15.3% (12.3-15.4) Platelet Count 193bil/L (150-400) Neutrophils (%) (Auto) 62.1% (40-74) Lymphocytes (%) (Auto) 27.0% (14-46) Monocytes (%) (Auto) 8.5% (4-12) Eosinophils (%) (Auto) 1.6% (0-5) Basophils (%) (Auto) 0.4% (0-3) Sodium Level 141mEq/L (134-144) Potassium Level 3.7mEq/L (3.5-5.2) Chloride Level 99mEq/L (97-108) Carbon Dioxide Level 26mmol/L (18-29) Blood Urea Nitrogen 25mg/dL (8-27) Creatinine 1.23mg/dL (0.76-1.27) Estimat Glomerular Filtration Rate 60mL/min (>59) Glucose Level 87mg/dL (60-99) Calcium Level 9.1mg/dL (8.5-10.1) Magnesium Level 2.4mg/dL (1.6-2.6) Total Bilirubin 1.4mg/dL (0.0-1.2) Aspartate Amino Transf (AST/SGOT) 21U/L (0-50) Alanine Aminotransferase (ALT/SGPT) 15U/L (0-44) Alkaline Phosphatase 98U/L (25-160) Total Creatine Kinase 173U/L (21-232) Troponin T 0.010ug/L (0.0-0.011) Total Protein 6.2g/dL (6.4-8.4) Albumin 4.1g/dL (3.4-5.0) Triglycerides Level 115mg/dL (0-149) Cholesterol Level 108mg/dL (100-199) LDL Cholesterol, Calculated 47.000mg/dL (0-99) VLDL Cholesterol 23.000mg/dL HDL Cholesterol 38mg/dL (>39) Cholesterol/HDL Ratio 2.84 (0.0-4.4) Test 07/26/16 12:50 Activated Partial Thromboplast Time 52.8sec (22.8-33.0) Discharge Medications Discharge Medications Acyclovir (Acyclovir) 400 Mg Tablet 400 MG PO BID (Reported) Amiodarone (Amiodarone) 200 Mg Tablet 200 MG PO DAILY (Reported) Aspirin (Aspirin) 81 Mg Tablet 81 MG PO DAILY (Reported) Furosemide (Furosemide) 20 Mg Tab 20 MG PO DAILY (Reported) Hydrochlorothiazide (Hydrochlorothiazide) 12.5 Mg Tablet 12.5 MG PO DAILY ( Reported) Loperamide/Simethicone (Imodium Multi-Symptom Rel Cplt) 1 Each Tablet 2 EACH PO AFTER EACH LOOSE (Reported) Take 2 tablets orally with first loose stool, and one tablet 2 mg orally, after each next bowel movement, do not exceed 16 mg in 24 hours. Metoprolol Tartrate (Metoprolol Tartrate) 25 Mg Tablet 12.5 MG PO BID (Reported ) Potassium Chloride (Potassium Chloride) 20 Meq Tab.er.prt 20 MEQ PO BID ( Reported) TAKE WITH FOOD Simvastatin (Simvastatin) 40 Mg Tablet 20 MG PO HS (Reported) As needed Nitroglycerin SL (Nitroglycerin SL) 0.4 Mg Tab.subl 0.4 MG SL Q5MIN PRN PRN For Chest Pain (Reported) Additional med instructions No changes in your medications. If you experience recurrence of chest pain you should rest and take nitroglycerin, if this last more than 5 minutes. If 2 nitroglycerin tablets over 10-15 minutes do not relieve this discomfort he should call 911. Followup Plan Disposition: Home Discharge Diet: Heart Healthy Discharge Activity: No restrictions Patient Instructions You should contact Dr. Norman's office in the morning to arrange prompt follow- up. Follow-up Provider: Omari Norman MD Follow-up with PCP in: Other (as soon as possible.) Provider: Jorge Xie MD Follow-up in: Other (routine next visit) Time spent 25 minutes copies to: Jorge Xie MD; Omari Norman MD, Jeffrey W MD Jul 26, 2016 15:48
[2016-07-27 10:25] VITALS: PULSE 62
--- NOTE | 2016-07-27 11:16 | NUR ---
Discharge The pt left the unit at 1100 on foot with his . He left with all his belongings and his discharge packet of info including medication info, appointments and educational materials. The pt left A&O x3 with all vitals WNL. He is being transported home by his in a private vehicle.
[2016-09-07] MEDS ORDERED: AMIO200T PO (09:34)
[2016-09-28] MEDS ORDERED: NITR0.4T SL (15:34)
[2016-10-26] MEDS ORDERED: AMIO200T PO (08:21)
== END 2016-07-27 11:02 | disposition home or self-care (01) ==
LOC: EDBD 11:47 → EDUNIT# 11:47 → SED 11:47 → PCC 16:03 → INTOOBSV 16:03
PROVIDERS: ADMIT Urology; ATTEND Urology
DX: R07.9 Chest pain, unspecified (principal); R55 Syncope and collapse; I50.22 Chronic systolic (congestive) heart failure; I25.10 Atherosclerotic heart disease of native coronary artery without angina pectoris; K76.89 Other specified diseases of liver; E27.8 Other specified disorders of adrenal gland; N28.1 Cyst of kidney, acquired; E80.7 Disorder of bilirubin metabolism, unspecified; I35.0 Nonrheumatic aortic (valve) stenosis; I25.2 Old myocardial infarction; I10 Essential (primary) hypertension; E78.5 Hyperlipidemia, unspecified; G47.30 Sleep apnea, unspecified; N40.0 Benign prostatic hyperplasia without lower urinary tract symptoms; F32.1 Major depressive disorder, single episode, moderate; I25.3 Aneurysm of heart; Z95.4 Presence of other heart-valve replacement; Z79.82 Long term (current) use of aspirin; Z87.891 Personal history of nicotine dependence; Z85.820 Personal history of malignant melanoma of skin; Z95.0 Presence of cardiac pacemaker; Z95.5 Presence of coronary angioplasty implant and graft; K86.1 Other chronic pancreatitis
CPT/HCPCS: 36415; 71010; 71275; 80053; 80061; 81000; 82533; 82550; 83735; 83835; 83880; 84484; 85014; 85018; 85025; 85379; 85730; 93005; 96374; 96375; 96376; 99291; C8929; G0378; J1644; J2270; J2405; Q9967

== ENCOUNTER 2016-08-21 13:41 | Observation (INO) | payer MEDICARE ==
[~2016-08-21] VITALS: Ht 182.9 cm; Wt 83.1 kg
[~2016-08-21 13:41] MED LIST changes: +ACYC400T2 PO; -DOXY100C2 PO; -LORA10CA PO
--- NOTE | 2016-08-21 13:46 | ED.REPORT ---
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 The pt was using a tape measure today with his head tilted back when he began to feel dizzy. He lowered his head and his pacemaker fired. The pt admits to chest pressure and soreness following the pacemaker firing. The pt took Nitro, which may have helped to lower the pain. Nitro given en route decreased the pain further. He states, however, the the chest discomfort did not feel like an GA. Nursing Notes Stated Complaint: DYSRHYTHMIA Nursing Notes Reviewed: Yes Allergies: Coded Allergies: lisinopril (Unverified Allergy, Unknown, 07/25/16) Patient states lisinopril makes him cough but he is currently taking lisinopril and denies having a cough Scheduled Acyclovir (Acyclovir) 400 Mg Tablet 400 MG PO BID Amiodarone (Amiodarone) 200 Mg Tablet 200 MG PO DAILY Aspirin (Aspirin) 81 Mg Tablet 81 MG PO DAILY Furosemide (Furosemide) 20 Mg Tab 20 MG PO DAILY Hydrochlorothiazide (Hydrochlorothiazide) 12.5 Mg Tablet 12.5 MG PO DAILY Loperamide/Simethicone (Imodium Multi-Symptom Rel Cplt) 1 Each Tablet 2 EACH PO AFTER EACH LOOSE Take 2 tablets orally with first loose stool, and one tablet 2 mg orally, after each next bowel movement, do not exceed 16 mg in 24 hours. Metoprolol Tartrate (Metoprolol Tartrate) 25 Mg Tablet 12.5 MG PO BID Potassium Chloride (Potassium Chloride) 20 Meq Tab.er.prt 20 MEQ PO BID TAKE WITH FOOD Simvastatin (Simvastatin) 40 Mg Tablet 20 MG PO HS Scheduled PRN Nitroglycerin SL (Nitroglycerin SL) 0.4 Mg Tab.subl 0.4 MG SL Q5MIN PRN PRN For Chest Pain General Time Seen by MD: 13:46 Chief Complaint Other (Pacemaker firing) Hx Obtained From: Patient, EMS Arrived By: Ambulance Sudden in Onset?: Yes Onset Occurred: 1 - 4 hours ago Recent Healthcare: Recent doctor visit, Recent hospitalization Similar Sx Previous: Yes Past Medical History Past Medical History Notes: ED visit 04/06/15 for AICD firing and CP, AICD interrogated and discharge was for tachydysrhythmia, patient's furosemide was discontinued, patient is advised to continue aspirin lactone and HCTZ Past Medical History Per old reports: Admit in 07/2014 for AICD firing from Vtach Coronary artery disease, with a history of non ST elevation GA in 2008 with balloon angioplasty and stenting of the LAD. 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 Dyslipidemia. Untreated sleep apnea. Uvulectomy. 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 02/26/2015 Uvulectomy Aortic Valve Replacement - bioprosthetic Reports: Cholecystectomy Reports: Pacemaker insertion Smoking History Former Smoker Social History Alcohol Use: "Social" Drug Use: Denies drug use Other Social History: Good social support, , Local resident Ambulatory Status Cane Review of Systems Review of Systems Note: pacemaker firing Constitutional: Denies: Fever Respiratory: Denies: Non-productive cough Cardiovascular: Reports: Chest pain GI: Denies: Abdominal pain Musculoskeletal: Denies: Back pain Skin: Denies Rash Neurologic: Reports: Dizziness Complete sys rev & neg: except as marked. Physical Exam Initial Vital Signs Vital Signs (First) Date Time Temp Pulse Resp B/P Pulse Ox O2 Delivery O2 Flow Rate FiO2 08/21/16 13:58 69 17 105/55 97 Room Air 08/21/16 16:31 36.9 Initial VS: Reviewed General/Constitutional: Awake, Alert Respiratory / Chest: Atraumatic, Breath sounds NL, Breath sounds = bilat, No respiratory distress Cardiovascular: Heart rate NL, Regular rhythm, Heart sounds NL, No murmurs Abdomen: Atraumatic, Soft, Non-tender Neck: Atraumatic, Supple, Full range of motion Back: Atraumatic, Full range of motion Lower Extremity / Pelvis / MS: Atraumatic, Full range of motion Skin: Atraumatic, Color NL, No rash, Warm, Dry Neurologic: Oriented X3, Speech NL, No motor deficits, No sensory deficits Psychiatric: Affect NL, Mood NL Head / Eyes: Atraumatic, Normocephalic, PERRL, EOMI ENT: Atraumatic, Airway patent, Mucous membranes moist Upper Extremity / MS: Atraumatic, Full range of motion Interpretation & Diagnostics Lab Results Interpretation Result Diagram: 08/21/16 1358 08/21/16 1358 Test 08/21/16 13:58 08/21/16 14:25 White Blood Count 5.8th/mm3 (3.8-10.1) Red Blood Count 4.65mil/mm3 (4.40-5.80) Hemoglobin 12.5g/dL (13.8-17.2) Hematocrit 40.1% (41.0-50.0) Mean Corpuscular Volume 86.2fL (81-100) Mean Corpuscular Hemoglobin 26.9pg (27.0-35.0) Mean Corpuscular Hemoglobin Concent 31.2% (32.0-37.0) Red Cell Distribution Width 15.8% (12.3-15.4) Platelet Count 202bil/L (150-400) Neutrophils (%) (Auto) 70.9% (40-74) Lymphocytes (%) (Auto) 16.8% (14-46) Monocytes (%) (Auto) 9.6% (4-12) Eosinophils (%) (Auto) 1.5% (0-5) Basophils (%) (Auto) 0.9% (0-3) Sodium Level 138mEq/L (134-144) Potassium Level 4.2mEq/L (3.5-5.2) Chloride Level 99mEq/L (97-108) Carbon Dioxide Level 22mmol/L (18-29) Blood Urea Nitrogen 29mg/dL (8-27) Creatinine 1.30mg/dL (0.76-1.27) Estimat Glomerular Filtration Rate 57mL/min (>59) Glucose Level 125mg/dL (60-99) Calcium Level 9.2mg/dL (8.5-10.1) Magnesium Level 2.3mg/dL (1.6-2.6) Total Bilirubin 1.5mg/dL (0.0-1.2) Aspartate Amino Transf (AST/SGOT) 25U/L (0-50) Alanine Aminotransferase (ALT/SGPT) 16U/L (0-44) Alkaline Phosphatase 102U/L (25-160) Total Protein 7.3g/dL (6.4-8.4) Albumin 4.6g/dL (3.4-5.0) Urine Color Yellow (YELLOW) Urine Appearance Clear (CLEAR,HAZY) Urine pH 5.5 (5.0-8.0) Urine Specific [place] 1.020 (1.003-1.035) Urine Protein Negativemg/dL (NEG,TRACE) Urine Glucose (UA) Negativemg/dL (NEGATIVE) Urine Ketones Negativemg/dL (NEGATIVE) Urine Occult Blood Negative (NEGATIVE) Urine Nitrite Negative (NEGATIVE) Urine Bilirubin Negative (NEGATIVE) Urine Urobilinogen Normalmg/dL (NORMAL) Urine Leukocyte Esterase Negative (NEGATIVE) Urine RBC 0-2/hpf (0-2) Urine WBC 0-5/hpf (0-5) Urine Epithelial Cells None/hpf (NONE-MOD) Urine Crystals None seen (NONE SEEN) Urine Bacteria None/hpf (NONE-FEW) Urine Hyaline Casts None/lpf (NONE) Urine Granular Casts None seen (NONE SEEN) Urine Waxy Casts None seen (NONE SEEN) Urine Red Blood Cell Casts None seen (NONE SEEN) Urine White Blood Cell Casts None seen (NONE SEEN) Urine Mucus None seen (None Seen) Urine Trichomonas None seen (NONE SEEN) Urine Yeast None (NONE SEEN) Urinalysis Comment None Urine Culture Reflexed Not indicated Hold Urine Received (Received) ECG Interpretation ECG Interpretation: ventricular paced rhythm with a rate of 69 Time: 13:59 Interpreted by: ED physician X-Ray Chest Interpretation Chest Xray Interpretation: IMPRESSION: No acute disease Dictated by: Greg Johnson M.D. on 08/21/2016 at 15:03 Approved by: Greg Johnson M.D. on 08/21/2016 at 15:04 Interpretation / Wet Read by: Interpret - Radiologist Re-Eval/Medical Decision Med Decision/Clinical Course 81-year-old male history of CAD, GA, LAD stent in 2008, aortic stenosis status post replacement with bioprosthetic valve , pacemaker defibrillator presenting after defibrillator went off. This was interrogated here in he had an episode of ventricular tachycardia to 200 which triggered the event. He reports some chest pain after the event that may have resolved with nitroglycerin given by paramedics. Troponins are negative. Discussed with side door worker Dr. León with outpatient to be admitted for trending troponins but they will not consult unless primary team requests pain consult. Patient was given aspirin in route. No need for heparin per cardiology. We will change troponins and telemetry monitoring. Observation. Full code. Source of Hx: Old records Time of Eval: 15:26 Patient Status: Condition improved Re-Evaluation/Progress Note: Pt rechecked, who is stable. He is informed of the diagnosis and need for admission. The pt understands and agrees with the plan. All questions are addressed at this time. Consultation #1: Referral / Consult Name: Oneyda Bryson MD Consulted With: Hospitalist Call Returned at: 15:30 Draw Machine Operator: Agrees with eval, Agrees with plan, Accepts admit Note: Spoke with Dr. Bryson, hospitalist, regarding pt's case. Dr. Bryson agrees with the evaluation and agrees to admit the pt. Consultation #2: Referral / Consult Name: Dominga Johnson MD Consulted With: Cardiology Call Returned at: 17:37 Draw Machine Operator: Agrees with eval, Agrees with plan Note: Consulted with Dr. Johnson, cardiology, regarding pt's case. Dr. Johnson agrees with the plan to admit for rule out troponins. Dr. Johnson agrees to consult if specifically requested. Counseled Regarding: Diagnosis, Lab results, Need for admission Discharge & Departure Primary Impression: Ventricular tachycardia Additional Impression: Chest pain Chest pain type: unspecified Qualified Code: R07.9 - Chest pain, unspecified Disposition: ADMITTED TO HOSPITAL Discharge Condition All VS Reviewed: Yes Condition: Stable Referrals: Jorge Xie MD (PCP) Crit Care Except Billable Proc Time Spent: 30-74 minutes Services Performed: Patient management by me, Time spent at bedside, Reviewing test results, Reviewing imaging, Documentation in record, Other Scribe Attestation Portions of this note were transcribed by Mike Monk I, Dr. Tomlinson personally performed the history, physical exam and medical decision-making; I reviewed and confirmed the accuracy of the information in the transcribed note. Signed by: Alba Daniels, 08/21/16 and 17:40. copies to: Jorge Xie MD, Ben M MD Aug 21, 2016 13:46 MIKE MONK Aug 21, 2016 15:45
[2016-08-21 13:58] VITALS: BP 105/55; PULSE 69; RESP 17; O2SAT 97
[2016-08-21 14:01] LABS: BASOPHILS % (AUTO) 0.9 % (0-3); EOSINOPHILS % (AUTO) 1.5 % (0-5); MONOCYTES % (AUTO) 9.6 % (4-12); Mean Corpuscular Hemoglobin 26.9 pg (27.0-35.0); Mean Corpuscular Volume 86.2 fL (81-100); NEUTROPHILS % (AUTO) 70.9 % (40-74); Platelet Count 202 bil/L (150-400)
[2016-08-21 14:28] LABS: TROPONIN T < 0.010 ug/L (0.0-0.011)
[2016-08-21 14:34] LABS: Magnesium 2.3 mg/dL (1.6-2.6)
--- NOTE | 2016-08-21 15:05 | DRSVH ---
PROCEDURE: X-RAY CHEST ONE VIEW, PORTABLE ([id number]) INDICATIONS: CHEST PAIN TECHNIQUE: One view of the chest was acquired. COMPARISON: [facility], CR, XR CHEST 1VW (PORTABLE), 07/25/2016, 12:21. FINDINGS: Surgical changes and devices: Unchanged appearance Lungs and pleura: No pleural effusions or pneumothorax. Lungs are clear. Mild bibasilar scarring/a telectasis Mediastinum: Mediastinal contours appear normal. Heart size is normal. Bones and chest wall: No suspicious bony lesions. Overlying soft tissues appear unremarkable. IMPRESSION: No acute disease Dictated by: Greg Johnson M.D. on 08/21/2016 at 15:03 Approved by: Greg Johnson M.D. on 08/21/2016 at 15:04
[2016-08-21] MEDS ORDERED: Alum-Mag Hydrox-Simeth 30 mL Suspension PO PRN ×2 (16:00→17:45)
[2016-08-21] MEDS ORDERED: Ondansetron 2 mg/mL 2 mL Inj IVPUSH PRN ×2 (16:00→17:45)
[2016-08-21 16:31] VITALS: BP 109/60; PULSE 69; RESP 16; O2SAT 95
[2016-08-21] MEDS ORDERED: Polyethylene Glycol (PEG) 17 Gm Powder PO PRN (17:45)
--- NOTE | 2016-08-21 17:51 | NUR ---
Admit [facility] from ED Pt admitted to [facility] at 1740. Pt denies having pain. IV patent. Pt placed on tele, monitor notified. Pt oriented to room and facility. VSS. Pt independent in room. Bed in low position, upper rails up, call light in reach. Pt states to have eaten dinner in the ED.
[2016-08-21 18:02] VITALS: BP 116/75; PULSE 89; RESP 18; O2SAT 99
--- NOTE | 2016-08-21 18:06 | PCM.HPMED ---
Subjective Date of Service Aug 21, 2016 Primary Provider: Admitting Physician: Oneyda Bryson MD Primary Care Physician: Jorge Xie MD Attending Physician: Oneyda Bryson MD Admit Status: From the Emergency Department, 23-Hour Observation, [facility] Telemetry Chief Complaint: AICD fired History of Present Illness: This is a 81-year-old male who has history of bioprosthetic aortic valve replacement done at [facility] years ago. A month after that he had a pacemaker and AICD placed here at [facility]. He does have a history of an NE in the past. About a month ago he had an episode of chest pain which was noncardiac per patient said he had an evaluation by his office machine embossograph operator Dr. Norman. Today he was in his usual state of health he tilted his head back felt lightheaded and started looking forward to had some chest pain which lasts about 45 minutes felt a little bit short of breath and his AICD fired. His AICD was interrogated and showed V. tach at a rate of 207. His labs were significant for troponin of less than 0.010 EKG showed ventricular paced rhythm at a rate of 69. Chest x-ray revealed no acute abnormalities. Allergies Coded Allergies: lisinopril (Unverified Allergy, Unknown, 07/25/16) Patient states lisinopril makes him cough but he is currently taking lisinopril and denies having a cough Home Medications Scheduled Acyclovir (Acyclovir) 400 Mg Tablet 400 MG PO BID Amiodarone (Amiodarone) 200 Mg Tablet 200 MG PO DAILY Aspirin (Aspirin) 81 Mg Tablet 81 MG PO DAILY Furosemide (Furosemide) 20 Mg Tab 20 MG PO DAILY Hydrochlorothiazide (Hydrochlorothiazide) 12.5 Mg Tablet 12.5 MG PO DAILY Loperamide/Simethicone (Imodium Multi-Symptom Rel Cplt) 1 Each Tablet 2 EACH PO AFTER EACH LOOSE Take 2 tablets orally with first loose stool, and one tablet 2 mg orally, after each next bowel movement, do not exceed 16 mg in 24 hours. Metoprolol Tartrate (Metoprolol Tartrate) 25 Mg Tablet 12.5 MG PO BID Potassium Chloride (Potassium Chloride) 20 Meq Tab.er.prt 20 MEQ PO BID TAKE WITH FOOD Simvastatin (Simvastatin) 40 Mg Tablet 20 MG PO HS Scheduled PRN Nitroglycerin SL (Nitroglycerin SL) 0.4 Mg Tab.subl 0.4 MG SL Q5MIN PRN PRN For Chest Pain PMH Past Medical History Notes: ED visit 04/06/15 for AICD firing and CP, AICD interrogated and discharge was for tachydysrhythmia, patient's furosemide was discontinued, patient is advised to continue aspirin lactone and HCTZ Past Medical History Per old reports: Admit in 07/2014 for AICD firing from [facility] Coronary artery disease, with a history of non ST elevation NE in 2008 with balloon angioplasty and stenting of the LAD. 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 Dyslipidemia. Untreated sleep apnea. Uvulectomy. 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 02/26/2015 Uvulectomy Aortic Valve Replacement - bioprosthetic Reports: Cholecystectomy Reports: Pacemaker insertion Family History No significant family medical history of coronary artery disease Social History Hx Alcohol Use: Yes Hx Substance Use: No Hx Tobacco Use: Yes (quit 19 yrs ago) Smoking Status: Former Smoker Living Arrangement: with Family Exam Vital Signs Vital Sign - Last Date Time Temp Pulse Resp B/P Pulse Ox O2 Delivery O2 Flow Rate FiO2 08/21/16 16:31 36.9 69 16 109/60 95 Room Air Exam Constitutional: Elderly man in no acute distress Head: Normocephalic atraumatic Eyes: PERRLA DC EOMI Mouth: No lesions Neck: Carotids 2+ over 4 without bruits Chest: Clear to auscultation Cor: Regular rate and rhythm S1-S2 Abdomen: Soft nontender bowel sounds present Extremities exam no pedal edema Psych: Mood and affect appropriate Skin: No rashes Neuro: Alert and oriented 3, motor strength is intact bilaterally Lab and Diagnostics Labs Laboratory Tests 72 Hours Test 08/21/16 13:58 08/21/16 14:25 White Blood Count 5.8th/mm3 (3.8-10.1) Red Blood Count 4.65mil/mm3 (4.40-5.80) Hemoglobin 12.5g/dL (13.8-17.2) Hematocrit 40.1% (41.0-50.0) Mean Corpuscular Volume 86.2fL (81-100) Mean Corpuscular Hemoglobin 26.9pg (27.0-35.0) Mean Corpuscular Hemoglobin Concent 31.2% (32.0-37.0) Red Cell Distribution Width 15.8% (12.3-15.4) Platelet Count 202bil/L (150-400) Neutrophils (%) (Auto) 70.9% (40-74) Lymphocytes (%) (Auto) 16.8% (14-46) Monocytes (%) (Auto) 9.6% (4-12) Eosinophils (%) (Auto) 1.5% (0-5) Basophils (%) (Auto) 0.9% (0-3) Sodium Level 138mEq/L (134-144) Potassium Level 4.2mEq/L (3.5-5.2) Chloride Level 99mEq/L (97-108) Carbon Dioxide Level 22mmol/L (18-29) Blood Urea Nitrogen 29mg/dL (8-27) Creatinine 1.30mg/dL (0.76-1.27) Estimat Glomerular Filtration Rate 57mL/min (>59) Glucose Level 125mg/dL (60-99) Calcium Level 9.2mg/dL (8.5-10.1) Magnesium Level 2.3mg/dL (1.6-2.6) Total Bilirubin 1.5mg/dL (0.0-1.2) Aspartate Amino Transf (AST/SGOT) 25U/L (0-50) Alanine Aminotransferase (ALT/SGPT) 16U/L (0-44) Alkaline Phosphatase 102U/L (25-160) Troponin T < 0.010ug/L (0.0-0.011) Total Protein 7.3g/dL (6.4-8.4) Albumin 4.6g/dL (3.4-5.0) Hold Urine Received (Received) Result Diagram: 08/21/16 1358 08/21/16 1358 X-Rays, CTs and MRIs PROCEDURE: X-RAY CHEST ONE VIEW, PORTABLE ([id number]) INDICATIONS: CHEST PAIN TECHNIQUE: One view of the chest was acquired. COMPARISON: [facility], CR, XR CHEST 1VW (PORTABLE), 07/25/2016, 12: 21. FINDINGS: Surgical changes and devices: Unchanged appearance Lungs and pleura: No pleural effusions or pneumothorax. Lungs are clear. Mild bibasilar scarring/atelectasis Mediastinum: Mediastinal contours appear normal. Heart size is normal. Bones and chest wall: No suspicious bony lesions. Overlying soft tissues appear unremarkable. IMPRESSION: No acute disease Dictated by: Greg Johnson M.D. on 08/21/2016 at 15:03 Approved by: Greg Johnson M.D. on 08/21/2016 at 15:04 Assessment & Plan # Run of ventricular tachycardia which caused AICD to fire acute, present on admission Check serial troponins Dr. Gt Hamm ER physician is to notify office machine embossograph operator regarding this patient and further management and evaluation Place on telemetry Continue current medication regimen Given circumstances of that happening with head tilting will go ahead and proceed with checking carotid duplex exam # Hyperlipidemia,chronic,poa Continue current med # DVT prophylaxis Place on subq prophylactic lovenox # CODE status Full code as discussed with patient and Pain Evaluation: Adequate Pain Control GI Prophylaxis: H2 maged VTE Prophylaxis: Sub-Q Enoxaparin Resuscitation Status: CPR: Attempt Resuscitation Time spent 60 minutes Oneyda Bryson MD Aug 21, 2016 18:06
[2016-08-21 18:12] VITALS: PULSE 73
[2016-08-21 18:25] LABS: APPEARANCE,URINE CLEAR (CLEAR,HAZY); COLOR,URINE YELLOW (YELLOW)
[2016-08-21 18:26] LABS: OCCULT BLOOD,URINE NEGATIVE (NEGATIVE); PH,URINE 5.5 (5.0-8.0); UROBILINOGEN,URINE NORMAL (NORMAL)
--- NOTE | 2016-08-21 19:01 | DRSVH ---
PROCEDURE: US BILATERAL DUPLEX DOPPLER IMAGING OF THE CAROTIDS ([id number]) INDICATIONS: near syncope TECHNIQUE: Color and pulse Doppler interrogation was performed of both carotid systems, with image documentation and velocity measurements. COMPARISON: [facility], US, CAROTID DUPLEX DOPPLER BILAT, 10/09/2014, 15:47. FINDINGS: All stenosis calculations are based on NASCET criteria. Right side: Brachial blood pressure: Not obtained due to IV Common Carotid Artery(Distal) PSV: 48.80 cm/s Internal Carotid Artery PSV- Proximal: 48.40 cm/s Mid-lon.30 cm/s Distal: 66.20 cm/s EDV - Proximal: 17.80 cm/s Mid-lon.50 cm/s Distal: 30.30 cm/s External Carotid Artery(Proximal) PSV: 48.40 cm/s ICA/CCA PSV ratio: 1.36 Adame scale imaging description: Mild plaque at the bifurcation Percent internal carotid artery stenosis: Less than 50%. Vertebral artery: Flow direction is antegrade. Left side: Brachial blood pressure: 160/75 mm Hg. Common Carotid Artery(Distal) PSV: 41.60 cm/s Internal Carotid Artery PSV - Proximal: 31.30 cm/s Mid-lon.50 cm/s Distal: 60.50 cm/s EDV - Proximal: 15 cm/s Mid-lon.40 cm/s Distal: 28.10 cm/s External Carotid Artery(Proximal) PSV: 65.10 cm/s ICA/CCA PSV ratio: 1.45 Adame scale imaging description: Mild plaque at the bifurcation and distal CCA Percent internal carotid artery stenosis: Less than 50%. Vertebral artery: Flow direction is antegrade. IMPRESSION: Bilateral less than 50% ICA stenosis. Dictated by: Greg Johnson M.D. on 08/21/2016 at 18:57 Approved by: Greg Johnson M.D. on 08/21/2016 at 18:59
--- NOTE | 2016-08-21 19:32 | NUR ---
UVALDO explained and signed. Copy of UVALDO and Medicare self administered medication information provided.
[2016-08-21 20:00] VITALS: PULSE 60
[2016-08-21] MEDS: Acyclovir 400 mg Tablet PO SCH (20:05)
[2016-08-21] MEDS: Potassium Chloride 20 mEq SR Tablet PO SCH (20:05)
[2016-08-22 00:32] VITALS: BP 105/68; PULSE 64; RESP 18; O2SAT 98
[2016-08-22] MEDS: Sodium Chloride LOK Flush 10 mL Syringe IVFLUSH SCH ×3 (00:44→16:30)
[2016-08-22 05:25] VITALS: BP 103/64; PULSE 62; RESP 18; O2SAT 94
[2016-08-22 06:31] LABS: BASOPHILS % (AUTO) 0.5 % (0-3); EOSINOPHILS % (AUTO) 2.6 % (0-5); MONOCYTES % (AUTO) 14.1 % (4-12); Mean Corpuscular Hemoglobin 26.8 pg (27.0-35.0); Mean Corpuscular Volume 85.6 fL (81-100); Platelet Count 172 bil/L (150-400)
--- NOTE | 2016-08-22 06:31 | NUR ---
Uneventful shift Pt has remained free of chest discomfort and tachycardia all shift. Pt has been independent to the BR and slept most of the night.
[2016-08-22] MEDS: Potassium Chloride 20 mEq SR Tablet PO SCH (09:03)
[2016-08-22] MEDS: Acyclovir 400 mg Tablet PO SCH (09:05)
[2016-08-22 09:44] VITALS: BP 100/64; PULSE 60; RESP 18; O2SAT 97
[2016-08-22 11:13] VITALS: PULSE 62
[2016-08-22 14:51] VITALS: BP 99/63; PULSE 56; RESP 18; O2SAT 95
--- NOTE | 2016-08-22 15:01 | NUR ---
Social Work Initial Assessment: SW met with patient at bedside to discuss discharge plan. Patient is a 81 year old male admitted on 08/21/16 for ventricular tachycardia chest pain. Patient payer as Medicare and [employer]. Patient states having no correction disability nor VA benefits. Patient PCP as MD Xie. Patient states residing in [facility] with Kat, . Patient states residing in a 1 story home and states being independent with needs. Patient drives independently. Patient pharmacy of choice as [facility]. Patient uses a cane at baseline. patient has no previous SNF history. Patient states having HHC history in past, agency name unknown. Patient states having AD on file and declined completion. Patient denied need for HHC services at this time. SW will continue to follow pending further clinical course. PLAN: Home with , via POV. No anticipated discharge needs at this time. SW to follow. Kesha JAIN Addendum: 08/22/16 at 1506 by OSMAN MOFFETT Amended: Links added.
[2016-08-22 16:57] VITALS: BP 102/63; PULSE 52; RESP 18; O2SAT 96
[2016-08-22] MEDS ORDERED: AMIO200T PO (18:35)
--- NOTE | 2016-08-22 18:38 | PCM.DIMED ---
Discharge Instructions Date of Service Aug 22, 2016 Dates of Hospitalization Aug 21, 2016 at 16:57 Discharge Diagnosis Discharge Diagnosis # Run of ventricular tachycardia which caused AICD to fire, acute, present on admission # Hyperlipidemia, chronic # Coronary artery disease, with a history of non ST elevation NC in 2008 post balloon angioplasty and stenting of the LAD. # Aortic stenosis with AVR replacement (bioprosthetic) # Untreated sleep apnea. # Right ventricular aneurysm Diet Low fat, Low Sodium, Heart Healthy Activity No restrictions Call your provider Fever or Chills, Shortness of breath, Bleeding, Chest pain Patient Instructions Seek immediate medical attention if any new or worsening signs or symptoms occur. Follow-up plan 1. Followup with cardiology in one week 2. Followup with primary care provider as needed. Follow-up Provider: Omari Norman MD Follow-up with PCP in: 1 week Provider: Jorge Xie MD, Masoud Aug 22, 2016 18:38
--- NOTE | 2016-08-22 18:42 | PCM.DC.MED ---
Discharge Summary Date of Service Aug 22, 2016 Dates of Hospitalization Date of Hospital Admission Aug 21, 2016 at 16:57 Date of Discharge: Aug 22, 2016 Providers: Admitting Physician: Oneyda Bryson MD Primary Care Physician: Jorge Xie MD Attending Physician: Oneyda Bryson MD Diagnosis at Time of Discharge Diagnosis at Time of Discharge # Run of ventricular tachycardia which caused AICD to fire, acute, present on admission # Hyperlipidemia, chronic # Coronary artery disease, with a history of non ST elevation GA in 2008 post balloon angioplasty and stenting of the LAD. # Aortic stenosis with AVR replacement (bioprosthetic) # Untreated sleep apnea. # Right ventricular aneurysm Consultations 1. Cardiology (Dr. Norman) Procedures XRay, CTs & MRIs PROCEDURE: X-RAY CHEST ONE VIEW, PORTABLE ([id number]) INDICATIONS: CHEST PAIN TECHNIQUE: One view of the chest was acquired. COMPARISON: [facility], CR, XR CHEST 1VW (PORTABLE), 07/25/2016, 12: 21. FINDINGS: Surgical changes and devices: Unchanged appearance Lungs and pleura: No pleural effusions or pneumothorax. Lungs are clear. Mild bibasilar scarring/atelectasis Mediastinum: Mediastinal contours appear normal. Heart size is normal. Bones and chest wall: No suspicious bony lesions. Overlying soft tissues appear unremarkable. IMPRESSION: No acute disease Dictated by: Greg Johnson M.D. on 08/21/2016 at 15:03 Approved by: Greg Johnson M.D. on 08/21/2016 at 15:04 Other Diagnostics Date of Service: 08/21/16 1741 PROCEDURE: US BILATERAL DUPLEX DOPPLER IMAGING OF THE CAROTIDS ([id number]) IMPRESSION: Bilateral less than 50% ICA stenosis. Dictated by: Greg Johnson M.D. on 08/21/2016 at 18:57 Approved by: Greg Johnson M.D. on 08/21/2016 at 18:59 Brief History As noted in H&P by Dr. Bryson: This is a 81-year-old male who has history of bioprosthetic aortic valve replacement done at [facility] years ago. A month after that he had a pacemaker and AICD placed here at [facility]. He does have a history of an GA in the past. About a month ago he had an episode of chest pain which was noncardiac per patient said he had an evaluation by his supply chain assistant Dr. Norman. Today he was in his usual state of health he tilted his head back felt lightheaded and started looking forward to had some chest pain which lasts about 45 minutes felt a little bit short of breath and his AICD fired. His AICD was interrogated and showed V. tach at a rate of 207. His labs were significant for troponin of less than 0.010 EKG showed ventricular paced rhythm at a rate of 69. Chest x-ray revealed no acute abnormalities. Hospital Course # Run of ventricular tachycardia which caused AICD to fire acute, present on admission - Serial troponin negative - remained asymptomatic during this hospital - seen by his supply chain assistant (Dr. Norman) and per his recommendation pt will be d/ c home and will double Amiodarone to 200 bid with plan f/u w/ Dr. Norman in one week # Hyperlipidemia,chronic,poa Continue current med by day of d/c lungs CTA bilat. CV RRR. Exam Vital Signs (Last) Date Time Temp Pulse Resp B/P Pulse Ox O2 Delivery O2 Flow Rate FiO2 08/22/16 16:57 36.6 52 18 102/63 96 Room Air Test 08/21/16 13:58 08/21/16 14:25 08/22/16 01:03 08/22/16 05:35 Magnesium Level 2.3mg/dL (1.6-2.6) Urine Color Yellow (YELLOW) Urine Appearance Clear (CLEAR,HAZY) Urine pH 5.5 (5.0-8.0) Urine Specific [place] 1.020 (1.003-1.035) Urine Protein Negativemg/dL (NEG,TRACE) Urine Glucose (UA) Negativemg/dL (NEGATIVE) Urine Ketones Negativemg/dL (NEGATIVE) Urine Occult Blood Negative (NEGATIVE) Urine Nitrite Negative (NEGATIVE) Urine Bilirubin Negative (NEGATIVE) Urine Urobilinogen Normalmg/dL (NORMAL) Urine Leukocyte Esterase Negative (NEGATIVE) Urine RBC 0-2/hpf (0-2) Urine WBC 0-5/hpf (0-5) Urine Epithelial Cells None/hpf (NONE-MOD) Urine Crystals None seen (NONE SEEN) Urine Bacteria None/hpf (NONE-FEW) Urine Hyaline Casts None/lpf (NONE) Urine Granular Casts None seen (NONE SEEN) Urine Waxy Casts None seen (NONE SEEN) Urine Red Blood Cell Casts None seen (NONE SEEN) Urine White Blood Cell Casts None seen (NONE SEEN) Urine Mucus None seen (None Seen) Urine Trichomonas None seen (NONE SEEN) Urine Yeast None (NONE SEEN) Urinalysis Comment None Urine Culture Reflexed Not indicated Hold Urine Received (Received) Troponin T 0.010ug/L (0.0-0.011) White Blood Count 5.8th/mm3 (3.8-10.1) Red Blood Count 4.51mil/mm3 (4.40-5.80) Hemoglobin 12.1g/dL (13.8-17.2) Hematocrit 38.6% (41.0-50.0) Mean Corpuscular Volume 85.6fL (81-100) Mean Corpuscular Hemoglobin 26.8pg (27.0-35.0) Mean Corpuscular Hemoglobin Concent 31.3% (32.0-37.0) Red Cell Distribution Width 15.5% (12.3-15.4) Platelet Count 172bil/L (150-400) Neutrophils (%) (Auto) 57.0% (40-74) Lymphocytes (%) (Auto) 25.6% (14-46) Monocytes (%) (Auto) 14.1% (4-12) Eosinophils (%) (Auto) 2.6% (0-5) Basophils (%) (Auto) 0.5% (0-3) Sodium Level 142mEq/L (134-144) Potassium Level 4.1mEq/L (3.5-5.2) Chloride Level 102mEq/L (97-108) Carbon Dioxide Level 26mmol/L (18-29) Blood Urea Nitrogen 28mg/dL (8-27) Creatinine 1.32mg/dL (0.76-1.27) Estimat Glomerular Filtration Rate 56mL/min (>59) Glucose Level 95mg/dL (60-99) Calcium Level 8.7mg/dL (8.5-10.1) Total Bilirubin 1.6mg/dL (0.0-1.2) Aspartate Amino Transf (AST/SGOT) 22U/L (0-50) Alanine Aminotransferase (ALT/SGPT) 15U/L (0-44) Alkaline Phosphatase 98U/L (25-160) Total Protein 6.4g/dL (6.4-8.4) Albumin 4.3g/dL (3.4-5.0) Discharge Medications Discharge Medications Acyclovir (Acyclovir) 400 Mg Tablet 400 MG PO BID (Reported) Amiodarone (Amiodarone) 200 Mg Tablet 200 MG PO BID Prescribed by: CAMILA SALAS MD Aspirin (Aspirin) 81 Mg Tablet 81 MG PO DAILY (Reported) Furosemide (Furosemide) 20 Mg Tab 20 MG PO DAILY (Reported) Hydrochlorothiazide (Hydrochlorothiazide) 12.5 Mg Tablet 12.5 MG PO DAILY ( Reported) Loperamide/Simethicone (Imodium Multi-Symptom Rel Cplt) 1 Each Tablet 2 EACH PO AFTER EACH LOOSE (Reported) Take 2 tablets orally with first loose stool, and one tablet 2 mg orally, after each next bowel movement, do not exceed 16 mg in 24 hours. Metoprolol Tartrate (Metoprolol Tartrate) 25 Mg Tablet 12.5 MG PO BID (Reported ) Potassium Chloride (Potassium Chloride) 20 Meq Tab.er.prt 20 MEQ PO BID ( Reported) TAKE WITH FOOD Simvastatin (Simvastatin) 40 Mg Tablet 20 MG PO HS (Reported) As needed Nitroglycerin SL (Nitroglycerin SL) 0.4 Mg Tab.subl 0.4 MG SL Q5MIN PRN PRN For Chest Pain (Reported) Followup Plan Disposition: Home Follow-up plan 1. Followup with cardiology in one week 2. Followup with primary care provider as needed. Discharge Diet: Low fat, Low Sodium, Heart Healthy Discharge Activity: No restrictions Patient Instructions Seek immediate medical attention if any new or worsening signs or symptoms occur. Follow-up Provider: Omari Norman MD Follow-up with PCP in: 1 week Provider: Jorge Xie MD Time spent 35 min copies to: Jorge Xie MD; Omari Norman MD, Masoud Aug 22, 2016 18:42
--- NOTE | 2016-08-22 19:52 | NUR ---
Discharge Note Discharge instruction ( Meds that need to be continued,RX, follow up with construction person and PCP which pt need make the appointments self) given to pt,pt verbalizes understanding, all questions answered. IV removed and gauzes applied CDI. Tele removed. Pt alert and orientedx3, denies any chest pain or any other discomfort, VSS, [place] [facility] [place] with all his belongings and discharge paperwork, [employer] ADVISOR wheels pt out, drives pt home.
[2016-09-07] MEDS ORDERED: AMIO200T PO (09:34)
[2016-09-28] MEDS ORDERED: NITR0.4T SL (15:34)
[2016-10-26] MEDS ORDERED: AMIO200T PO (08:21)
== END 2016-08-22 19:42 | disposition home or self-care (01) ==
LOC: SED 13:41 → MPC 16:57 → INTOOBSV 16:57
PROVIDERS: ADMIT Specialist; ATTEND Specialist
DX: I47.2 Ventricular tachycardia (principal); Z95.810 Presence of automatic (implantable) cardiac defibrillator; E78.5 Hyperlipidemia, unspecified; I25.10 Atherosclerotic heart disease of native coronary artery without angina pectoris; Z95.5 Presence of coronary angioplasty implant and graft; Z95.2 Presence of prosthetic heart valve; G47.30 Sleep apnea, unspecified; I25.3 Aneurysm of heart; Z79.82 Long term (current) use of aspirin
CPT/HCPCS: 36415; 71010; 80053; 81000; 83735; 84484; 85025; 93005; 93880; 99291; G0378; J1650

== ENCOUNTER 2016-10-27 08:43 | Day surgery (SDC) | payer MEDICARE ==
[~2016-10-27] VITALS: Ht 182.9 cm; Wt 85.0 kg
[2016-10-27] MEDS ORDERED: Propofol 10,000 mCg/mL 20 mL Inj ONE ×2 (08:44)
[2016-10-27 09:05] VITALS: BP 131/73; PULSE 64; RESP 14; O2SAT 100
[2016-10-27] MEDS: Lactated Ringer's 1,000 ML IV ONE ×2 (09:54→10:02)
[2016-10-27 10:07] VITALS: BP 101/66; PULSE 60; RESP 14; O2SAT 96
[2016-10-27 10:17] VITALS: BP 111/76; PULSE 64; RESP 16; O2SAT 98
[2016-10-27 10:24] VITALS: BP 107/70; PULSE 61; RESP 16; O2SAT 98
--- NOTE | 2016-10-27 10:26 | PCM.HPANE ---
Patient Data Surgeon Admitting Provider: Attending Provider:Juan Anne MD Primary Care Physician:Jorge Xie MD Other Provider:Gaby Tapia Anesthesia Reason for Visit Adenocarcinoma Ht/WT & BMI Height (Feet): 6 Height (Inches): 0 Weight (Kilograms): 85 Body Mass Index 25.00 Allergies Coded Allergies: lisinopril (Verified Allergy, Unknown, cough, 10/27/16) Patient states lisinopril makes him cough but he is currently taking lisinopril and denies having a cough Past Anesthesia History Anesthesia History: Denies:: Anesthesia Reactions, Fam Anesthesia Reaction, Fam Malignant Hypertherm, Malignant Hyperthermia Diabetes History Hx Diabetes?: No MRSA MRSA: No Medications Blood Thinner: Aspirin Last Dose Blood Thinner: Oct 26, 2016 Home Meds Incl Beta Silvano: Yes Date Beta Silvano Taken: Oct 26, 2016 Time Beta Silvano Taken: 1600 Reported Medications Amiodarone 200 Mg [id number] Mg PO DAILY Ref 0 10/26/16 Acyclovir 400 Mg [id number] Mg PO BID #60 07/25/16 Nitroglycerin SL 0.4 Mg Tab.subl0.4 Mg SL Q5MIN PRN For Chest Pain 10/26/15 Potassium Chloride 20 Meq Tab.er.prt20 Meq PO BID 30 Days Ref 0 TAKE WITH FOOD 10/23/15 Hydrochlorothiazide 12.5 Mg Gctzhv06.5 Mg PO DAILY 30 Days Ref 0 10/23/15 Aspirin 81 Mg Aiviht50 Mg PO DAILY Ref 0 02/09/15 Loperamide/Simethicone (Imodium Multi-Symptom Rel Cplt)1 Each Tablet2 Each PO AFTER EACH LOOSE Take 2 tablets orally with first loose stool, and one tablet 2 mg orally, after each next bowel movement, do not exceed 16 mg in 24 hours. 10/09/14 Furosemide 20 Mg Tab20 Mg PO DAILY 08/03/14 Metoprolol Tartrate 25 Mg Kbkeuf12.5 Mg PO BID 08/03/14 Simvastatin 40 Mg Zxkdxw63 Mg PO HS 08/03/14 Discontinued Reported Medications Amiodarone 200 Mg [id number] Mg PO BID Ref 0 09/07/16 History History of ENT Problems?: No HEENT History: Positive for:: Cataracts (just had surgery on both eyes) Denies:: Dysphagia Sinus Problem Denture Type: None Teeth Condition: Missing Teeth Hx of Heart Problems?: Yes Cardiovascular History: Positive for:: AICD (NEW 10/2015) Cardiac Surgery (AVR) Congestive Heart Failure Edema Hypertension Pacemaker Valvular Heart Disease (AORTIC VALVE REPLACED JUL 2012) Denies:: Chest Pain Heart Murmur Irregular Heartbeat Rheumatic Fever Thrombophlebitis Hx of Respiratory Problem?: No Respiratory History: Denies:: Asthma COPD Chest Surgery Dyspnea Emphysema Hemoptysis Pneumonia Tuberculosis Hx Neurologic Problems?: No Neurological History: Denies:: Alzheimer's Disease CVA Dementia Dizziness Headaches Parkinson's Disease Seizures Hx of GI Problems?: No Gastrointestinal History: Denies:: Cirrhosis Diverticulitis Gastroesphageal Reflux Gastrointestinal Bleeding Heartburn Hepatitis Hiatal Hernia Rectal Bleeding Hx of Problems?: No Genitourinary History: Denies:: HX of Hemodialysis Kidney Stones Urinary Tract Infection HX of Peritoneal Dialysis: No Male Hx: Denies:: Prostate Problems Scrotal Mass Testicular Surgery Hx Musculoskeletal Problems?: No Musculoskeletal History: Denies:: Back Injury Joint Replacement Musculoskeletal Trauma Hx of Psycho/Social Problems?: No Psycho Social History: Denies:: Anxiety Bipolar Disorder Hx Depression Suicide Attempt Hx Surgeries?: Yes (CHOLY, AORTIC VALVE, CATARACTS, UVULA, PACEMAKER, ) Hx Any Other Health Problems?: Yes Other History: Positive for:: Cancer (MELANOMA 2015) Hospitalization Denies:: Endocrine Disease Thyroid Disease History Blood Transfusions: Denies:: Blood Transfuse Reaction Blood Transfusions Hx Diabetes: No Hx Alcohol Use: Yes (1/WEEK)Hx Substance Use: No Smoking Status: Former Smoker Have You Smoked inLast 12 mo: No Stop/Bang Treated for Sleep Apnea?: Yes Do You Have a CPAP Machine?: Yes Risk Assessment Category Category 1A: Patient has history of documented sleep apnea, and HAS NOT received any narcotic, sedative or anesthesia administration during this stay. Category 1B: Patient has history of documented sleep apnea, and HAS received any narcotic , sedative or anesthesia administration during this stay Category 2: Patient has SUSPECTED Obstructive Sleep Apnea, and HAS received any narcotic , sedative or anesthesia administration during this stay. Category 3: Patient has SUSPECTED Obstructive Sleep Apnea and HAS NOT received narcotic, sedative or anesthesia administration during this stay. Category 4: Outpatient in Procedural Areas with known sleep apnea or who screen positive for High Risk via the STOP/BANG questionnaire. Exam Exam Vital Signs Vital Signs Date Time Temp Pulse Resp B/P Pulse Ox O2 Delivery O2 Flow Rate FiO2 4/20/17 10:24 61 16 107/70 98 Room Air 10/27/16 10:17 64 16 111/76 98 Room Air 10/27/16 10:07 36.3 60 14 101/66 96 Room Air 10/27/16 09:05 36.6 64 14 131/73 100 Room Air General Appearance: Alert, Oriented X3, Cooperative, No Acute Distress HEENT/AIRWAY: MP 1 Lungs: Normal Air Movement Heart: Regular Rate/Rhythm, Other (v paced) Meds/Labs/Diagnostics Admission Meds Current Medications Lactated Ringer's (Lr) 1,000 ml @ 10 mls/hr Q24H ONCE IV Last administered on 10/27/16 10:02; Start 10/27/16 at 06:00; Stop 10/28/16 at 05:59 Lidocaine HCl (Xylocaine Viscous 2% Soln 15mL) 15 ml ONCE ONCE PO Last administered on 10/27/16 09:51; Start 10/27/16 at 06:00; Stop 10/27/16 at 06:01 ; Status DC Plan Impression Patient chart reviewed, patient interviewed and anesthestic plan with risks, benefits, and alternatives discussed, and informed consent obtained. Ivonne Cohen DO Oct 27, 2016 10:26
--- NOTE | 2016-10-27 10:27 | PCM.ANEP1 ---
Post Anesthesia Phase 1 PACU Phase 1 Assessment Vital Signs Vital Signs Date Time Temp Pulse Resp B/P Pulse Ox O2 Delivery O2 Flow Rate FiO2 10/27/16 10:24 61 16 107/70 98 Room Air 10/27/16 10:17 64 16 111/76 98 Room Air 10/27/16 10:07 36.3 60 14 101/66 96 Room Air 10/27/16 09:05 36.6 64 14 131/73 100 Room Air Anesthetic Administered: MAC Level of Alertness: Awake, talking ROBERSON's with Equal Strength: Yes Pain: No Nausea or Vomiting: No Cardiovascular Function and Hy: Yes Oxygen Delivery: Room Air Lungs: Normal Air Movement Complications: No Ivonne Cohen DO Oct 27, 2016 10:27
--- NOTE | 2016-10-27 11:01 | ENDO ---
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 POSTOPERATIVE DIAGNOSIS: Normal esophagus, stomach and duodenum. PROCEDURE: Esophagogastroduodenoscopy. SURGEON: Juan Anne M.D. INDICATIONS: A 81-year-old man who was recently found to have a solitary hepatic mass and a biopsy showed a metastatic malignancy. Immunohistochemical studies suggested an upper gastrointestinal source. There are no pancreatic masses. After discussing options with the patient, it was elected to proceed with an upper endoscopy. FINDINGS: His esophagus, stomach including retroflexed views of the cardia, pylorus and duodenum into the proximal third portion of the duodenum were entirely normal. The GE junction was at approximately 42 cm from the incisors. The esophageal mucosa entirely normal without ulceration or neoplasia. Retroflex views revealed a Hill grade I flap valve. The cardia, fundus, body and antrum of the stomach were normal. The pylorus normal and the duodenum into the proximal third portion was normal. No biopsies were taken. DESCRIPTION OF PROCEDURE: The procedure and sedation plan was discussed with the patient and nursing staff, and a procedural time-out was held. Because of the significant cardiac comorbidities, sedation was provided by Anesthesia. After he gargled viscous xylocaine and then the GIF H 180 video endoscope was passed transorally, advanced into the third portion of the duodenum, withdrawn obtaining forward and retroflexed views of the stomach with results as stated above. No biopsies were taken. Normal esophagogastroduodenoscopy. The source of his tumor is not identified by this study.
== END 2016-10-27 23:59 | disposition home or self-care (01) ==
LOC: END 08:43
PROVIDERS: ATTEND Surgery
DX: C78.7 Secondary malignant neoplasm of liver and intrahepatic bile duct (principal); C80.1 Malignant (primary) neoplasm, unspecified; E78.2 Mixed hyperlipidemia; G25.81 Restless legs syndrome; G47.33 Obstructive sleep apnea (adult) (pediatric); I11.0 Hypertensive heart disease with heart failure; I25.10 Atherosclerotic heart disease of native coronary artery without angina pectoris; I49.5 Sick sinus syndrome; I50.22 Chronic systolic (congestive) heart failure; I47.2 Ventricular tachycardia; Z85.820 Personal history of malignant melanoma of skin; Z87.891 Personal history of nicotine dependence; Z95.810 Presence of automatic (implantable) cardiac defibrillator
CPT/HCPCS: 43235; J7120

== ENCOUNTER 2016-11-22 06:57 | Inpatient (IN) | payer MEDICARE ==
--- NOTE | 2016-11-18 09:46 | PCM.ANEPRE ---
Anesthesia Pre-Op Review Reason for Review: Severe cardiac disease Anesthesia Recommendations: Proceed with Procedure Additional Comments Mr. Goldsmith is a 81y/o M with a complicated history. 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 - His LV is mild-moderately hypokinetic with LVEF in the 40-50% range on various studies. His LV inferior wall is infarcted. - Nuclear stress tests have not shown significant inducible ischemia. Most recently in 08/2016. - He AV paces secondary to sick sinus syndrome (99% A and V paced). - History of VT presumably secondary to his infarcted/dilated RV with AICD discharges (most recently in 08/2016). After this, his amiodarone was increased and he has had no shocks in the last few months. - Chronic kidney disease, baseline Cr 1.3 Dr. Anne is planning a left hepatic segmentectomy for a cholangiocarcinoma. From his assessment, this is not likely to be a complicated resection from an anatomic standpoint. My concern for this patient is in regard to his poor right ventricular function and how it will tolerate relatively poor filling secondary to both the pneumoperitoneum and reverse trendelenberg positioning commonly asked for in this procedure. With the patient's severe TR, hepatic backbleeding is likely to be worse in this patient than on average. I attempted to reach Dr. Anne today, but he is off. The patient should fully understand that he is above average risk for serious complication including and post-op ICU admission in the setting of these comorbidities. Recommendations include: Lines: arterial line, reliable peripheral IV access, central venous line for vasoactive infusions (following CVP is not likely to be terrible useful with his severe TR). Care should be taken to avoid snagging intracardiac pacer wires with the guidewire. Pacer/defibrillator: plans are in place to program him to DOO at 80 and turn the defibrillator off. I would ensure that a defibrillator/cardioverter is readily available for this patient. He should take his amiodarone and metoprolol as per usual the day of and days before surgery. Surgical plan: As much as possible, using as little in terms of pneumoperitoneum and extremes of positioning as dictated by the patient's hemodynamic tolerance. Wallace Clemente MD Chart Reviewed by: Wallace Kinsey MD November 18, 2016 08:38
[2016-11-22] VITALS (18 sets, daily range): BP systolic 82–145; BP diastolic 55–90; PULSE 60–73; RESP 11–22; O2SAT 93–100
[~2016-11-22] VITALS: Ht 182.9 cm; Wt 89.0 kg
[~2016-11-22 06:57] MED LIST changes: +CeFAZolin Inj 2 GM in IV Premix 1 EACH IV ONE; +Heparin 5,000 Unit/mL Inj SUBQ ONE
[2016-11-22] MEDS: Lactated Ringer's 1,000 ML IV SCH ×3 (07:05→16:30)
[2016-11-22] MEDS ORDERED: D5W IV ONE ×2 (07:10)
[2016-11-22] MEDS ORDERED: Norepinephrine 8,000 mCg/250 mL D5W Premix IV ONE (07:10)
[2016-11-22] MEDS ORDERED: MILRINONE IV ONE ×2 (07:10)
[2016-11-22] MEDS ORDERED: IBUP200C PO (07:17)
[2016-11-22] MEDS ORDERED: Bupivacaine Liposome 1.3% 20 mL Inj ONE (10:28)
[2016-11-22] MEDS ORDERED: Heparin 5,000 Unit/mL Inj SUBQ ONE (10:32)
[2016-11-22] MEDS ORDERED: Bupivacaine 0.5%/EPI 50 mL Inj INFILTRATE ONE (10:51)
[2016-11-22 10:57] LABS: APPEARANCE,URINE CLEAR (CLEAR,HAZY); COLOR,URINE YELLOW (YELLOW); OCCULT BLOOD,URINE NEGATIVE (NEGATIVE); PH,URINE 5.5 (5.0-8.0); UROBILINOGEN,URINE NORMAL (NORMAL)
[2016-11-22] MEDS ORDERED: Bupivacaine Liposome 1.3% 20 mL Inj INFILTRATE ONE (11:32)
[2016-11-22] MEDS ORDERED: Lactated Ringer's 1,000 ML IV SCH (11:39)
[2016-11-22] MEDS ORDERED: Lactated Ringer's 500 ML IV PRN (11:39)
[2016-11-22] MEDS ORDERED: fentaNYL-PF 50 mCg/mL 2 mL Inj IVPUSH PRN (11:40)
[2016-11-22] MEDS ORDERED: Ondansetron 2 mg/mL 2 mL Inj IVPUSH PRN ×2 (11:40→14:05)
[2016-11-22] MEDS ORDERED: HYDROmorphone 1 mg/mL Inj IVPUSH PRN (11:40)
[2016-11-22] MEDS ORDERED: EPHEDrine Sulfate 50 mg/mL Inj IVPUSH PRN (11:40)
[2016-11-22] MEDS ORDERED: MetoCLOpramide 5 mg/mL 2 mL Inj IVPUSH PRN ×2 (11:40→14:05)
[2016-11-22] MEDS ORDERED: Labetalol 5 mg/mL 4 mL Inj IV PRN (11:40)
[2016-11-22] MEDS ORDERED: Atropine 0.4 mg/mL Inj IVPUSH PRN (11:40)
[2016-11-22] MEDS ORDERED: Phenylephrine 10,000 mCg/mL Inj IVPUSH PRN (11:40)
--- NOTE | 2016-11-22 12:32 | PCM.HPANE ---
Patient Data Surgeon Admitting Provider: Attending Provider:Juan Anne MD Primary Care Physician:Jorge Xie MD Other Provider:Gaby Tapia Anesthesia Reason for Visit Liver Cholangio Cancer Ht/WT & BMI Height (Feet): 6 Height (Inches): 0 Weight (Kilograms): 84.8 Body Mass Index 25.00 Allergies Coded Allergies: lisinopril (Verified Allergy, Unknown, cough, 10/27/16) Patient states lisinopril makes him cough but he is currently taking lisinopril and denies having a cough Past Anesthesia History Anesthesia History: Denies:: Abnormal Airway, Anesthesia Reactions, Difficult Intubation, Fam Anesthesia Reaction, Fam Malignant Hypertherm, Malignant Hyperthermia Diabetes History Hx Diabetes?: No MRSA MRSA: No Medications Blood Thinner: Aspirin Hypertension Medication: Yes Home Meds Incl Beta Silvano: Yes Reported Medications Ibuprofen 200 Mg Anyavry714 Mg PO QID PRN For Pain Ref 0 11/22/16 Amiodarone 200 Mg [id number] Mg PO DAILY Ref 0 10/26/16 Acyclovir 400 Mg Bgmrhd504 Mg PO BID #60 07/25/16 Nitroglycerin SL 0.4 Mg Tab.subl0.4 Mg SL Q5MIN PRN For Chest Pain 10/26/15 Potassium Chloride 20 Meq Tab.er.prt20 Meq PO BID 30 Days Ref 0 TAKE WITH FOOD 10/23/15 Hydrochlorothiazide 12.5 Mg Zuxstq54.5 Mg PO DAILY 30 Days Ref 0 10/23/15 Aspirin 81 Mg Uezlvm26 Mg PO DAILY Ref 0 02/09/15 Loperamide/Simethicone (Imodium Multi-Symptom Rel Cplt)1 Each Tablet2 Each PO AFTER EACH LOOSE Take 2 tablets orally with first loose stool, and one tablet 2 mg orally, after each next bowel movement, do not exceed 16 mg in 24 hours. 10/09/14 Furosemide 20 Mg Tab20 Mg PO DAILY 08/03/14 Metoprolol Tartrate 25 Mg Tpeczl03.5 Mg PO BID 08/03/14 Simvastatin 40 Mg Hbrpxg86 Mg PO HS 08/03/14 History History of ENT Problems?: No HEENT History: Positive for:: Cataracts (cataracts- bilateral) Glaucoma Hearing Problem Denies:: Abnormal Airway Difficult Intubation Dysphagia Sinus Problem TMJ Denture Type: None Teeth Condition: Within Normal Limits Hx of Heart Problems?: Yes Cardiovascular History: Positive for:: AICD (NEW 10/2015) Cardiac Surgery (AVR, AICD) Congestive Heart Failure Edema Hypertension Pacemaker Valvular Heart Disease (echo 07/2016) Denies:: Chest Pain Heart Murmur Irregular Heartbeat Rheumatic Fever Thrombophlebitis Hx of Respiratory Problem?: No Respiratory History: Denies:: Asthma COPD Chest Surgery Dyspnea Emphysema Hemoptysis Oxygen Administration Pneumonia Tuberculosis Use of C-PAP Machine Hx Neurologic Problems?: No Neurological History: Denies:: Alzheimer's Disease CVA Dementia Dizziness Headaches Multiple Sclerosis Parkinson's Disease Seizures Hx of GI Problems?: Yes Hx of Problems?: No Genitourinary History: Denies:: HX of Hemodialysis Kidney Stones Urinary Tract Infection HX of Peritoneal Dialysis: No Male Hx: Denies:: Prostate Problems Scrotal Mass Testicular Surgery Skin History: Positive for:: History Skin Disorders? (Melanoma to R lower back , removed) Denies:: Pressure Ulcers Hx Musculoskeletal Problems?: No Musculoskeletal History: Denies:: Back Injury Fibromyalgia Joint Replacement Musculoskeletal Trauma Myasthenia Gravis Osteoarthritis Systemic Lupus Hx of Psycho/Social Problems?: No Psycho Social History: Denies:: Anxiety Bipolar Disorder Hx Depression Suicide Attempt Hx Surgeries?: Yes (CHOLY, AORTIC VALVE, CATARACTS, UVULA, PACEMAKER, ) Hx Any Other Health Problems?: Yes Other History: Positive for:: Cancer (MELANOMA 2016, liver cholangio cancer current ) Hospitalization Denies:: Endocrine Disease Thyroid Disease History Blood Transfusions: Positive for:: Accept Blood Products? Denies:: Blood Transfuse Reaction Blood Transfusions Hx Diabetes: No Hx Alcohol Use: YesAlcoholic Drinks Per Day: one drink every few weeksHx Substance Use: No Smoking Status: Former Smoker Have You Smoked inLast 12 mo: No Stop/Bang S-Snoring: Do You Snore Loudly: Yes T-Tired: feel tired, fatigued: Yes O-Obsered: Observed not breath: Yes P-Blood Pressure: treated: Yes B- Body Mass Index > 35 kg/m2: No A- Age over 50: Yes N- Neck Large Circumference: No G- Gender Male: Yes OMI Total Score: 6 Risk Assessment Category Category 1A: Patient has history of documented sleep apnea, and HAS NOT received any narcotic, sedative or anesthesia administration during this stay. Category 1B: Patient has history of documented sleep apnea, and HAS received any narcotic , sedative or anesthesia administration during this stay Category 2: Patient has SUSPECTED Obstructive Sleep Apnea, and HAS received any narcotic , sedative or anesthesia administration during this stay. Category 3: Patient has SUSPECTED Obstructive Sleep Apnea and HAS NOT received narcotic, sedative or anesthesia administration during this stay. Category 4: Outpatient in Procedural Areas with known sleep apnea or who screen positive for High Risk via the STOP/BANG questionnaire. Exam Exam General Appearance: Alert, Oriented X3, Cooperative, No Acute Distress HEENT/AIRWAY: MP 2, Neck Movement (FROM), Mouth Opening (3 FBMO) Lungs: Normal Air Movement Heart: Other (AICD reprogrammed to DOO mode. ) Meds/Labs/Diagnostics Admission Meds Current Medications Lactated Ringer's (Lr) 1,000 ml @ 120 mls/hr Q8H20M IV Last administered on t 07:05; Start 11/22/16 at 05:00; Stop 11/22/16 at 13:19 Plan Impression Patient chart reviewed, patient interviewed and anesthestic plan with risks, benefits, and alternatives discussed, and informed consent obtained. NPO per Anesth. Guidelines: Yes ASA Physical Status: ASA3 Severe Disease Anesthetic Support Modalities: Arterial Line, Central Line Anesthetic Plan: GA Bene/Risks/Altern/Consents: Yes HP Complete Prior to Induction: Yes Other This surgery has a significant risk of perioperative complications and increased morbidity and mortality. I had multiple conversations with Dr. Anne prior to the day of surgery on the necessity of the surgery and how to perform it with the best possible outcome. Prior to surgery, I had a long conversation with the patient and his about the significant risks. These risks include significant bleeding, coronary artery disease, pulmonary disease, stroke, , infection, nerve damage, postoperative intubation in the ICU. I told the patient that I would be placing a central line with the associated risks of bleeding, infection, arterial placement, malposition, pneumothorax, hemothorax, stroke, permanent brain damage. The patient agreed to the central line and associated risks. I told the patient I would be placing an arterial line with the risks of bleeding, infection, nerve damage, air embolism, stroke, loss of sensation to his hand. The patient agreed to the arterial line and associated risks. The patient is well aware that he may need a significant amount of blood products and is OK with receiving them. He will go to the ICU afterwards. Jose Manuel Oshea MD November 22, 2016 07:41
[2016-11-22] MEDS ORDERED: Lactated Ringer's 1,000 ML IV ONE (13:36)
[2016-11-22] MEDS ORDERED: Polyethylene Glycol (PEG) 17 Gm Powder PO PRN (14:05)
[2016-11-22 14:45] LABS: BASOPHILS % (AUTO) 0.2 % (0-3); EOSINOPHILS % (AUTO) 0.4 % (0-5); MONOCYTES % (AUTO) 2.4 % (4-12); Mean Corpuscular Hemoglobin 26.3 pg (27.0-35.0); Mean Corpuscular Volume 88.6 fL (81-100); NEUTROPHILS % (AUTO) 89.6 % (40-74); Platelet Count 160 bil/L (150-400)
--- NOTE | 2016-11-22 15:29 | PCM.ANEP1 ---
Post Anesthesia Phase 1 PACU Phase 1 Assessment Vital Signs Vital Signs Date Time Temp Pulse Resp B/P Pulse Ox O2 Delivery O2 Flow Rate FiO2 11/22/16 14:50 70 16 139/85 98 Simple Mask 8 127/66 11/22/16 14:45 70 17 130/76 96 Simple Mask 8 134/69 11/22/16 14:40 70 16 128/90 98 Simple Mask 8 125/64 11/22/16 14:35 70 14 132/68 99 Simple Mask 8 117/55 11/22/16 14:30 70 13 96/67 98 Simple Mask 8 102/60 11/22/16 14:25 70 18 110/76 98 Simple Mask 8 94/55 11/22/16 14:20 70 18 91/66 98 Simple Mask 8 11/22/16 14:15 70 18 82/57 98 Simple Mask 8 11/22/16 14:10 70 19 99/70 94 Simple Mask 8 11/22/16 14:05 70 22 107/76 93 Simple Mask 8 11/22/16 14:03 36.1 70 16 102/70 94 Simple Mask 8 11/22/16 07:38 36.5 71 18 126/79 100 Room Air Anesthetic Administered: GA Level of Alertness: Awake, talking ROBERSON's with Equal Strength: Yes Pain: No Nausea or Vomiting: No Cardiovascular Function and Hy: Yes Oxygen Delivery: Simple Mask Lungs: Normal Air Movement Dermatome Level: Full Sensation Complications: No Follow up Care: No Jose Manuel Oshea MD November 22, 2016 15:29
--- NOTE | 2016-11-22 15:38 | OP ---
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 POSTOPERATIVE DIAGNOSIS(ES): Cholangiocarcinoma liver segments 3/4. PROCEDURE: 1. Laparoscopic resection left lateral segmentectomy (segments 3/4). 2. Laparoscopic Lysis of Adhesions SURGEON: Juan Anne M.D. SHARPLES MACHINE OPERATOR: Jitendra Brian M.D./Ronnie Lowery PA-C. INDICATIONS: A 81-year-old man who was found to have a mass in the lateral segment of his left hepatic lobe. A percutaneous biopsy showed an adenocarcinoma consistent with an upper GI source. He had a PET scan that showed no other evidence of disease. An upper endoscopy showed no evidence of a primary in his esophagus, stomach or duodenum. 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 Norman, and also preoperative anesthesia evaluation, it was elected to proceed with a laparoscopic resection of hepatic segments three and four (left lateral segmentectomy). He had had a previous open cholecystectomy many years ago through a right subcostal incision. FINDINGS: There was no intra-abdominal evidence of disease. He had no evidence of tumor implants or ascites. He had significant right upper quadrant adhesions from his previous open cholecystectomy. Unfortunately the intraoperative laparoscopic ultrasound was not available but by gross margins the tumor was removed with a RO resection. He remained hemodynamically stable throughout the procedure. Estimated blood loss was 500 cc. DESCRIPTION OF PROCEDURE: Prior to prepping and draping, an arterial line and central venous line was placed by Dr. Albert Oshea from anesthesia. He was induced into general endotracheal anesthetic. A Schaefer catheter was inserted. He had on pneumatic hose. He received subcutaneous heparin and he received preoperative antibiotics. Using ChloraPrep, he was prepped and draped in the usual fashion. A small supraumbilical incision was made. The abdominal cavity was entered. A 12 mm port was inserted. As was expected, he had significant right upper quadrant adhesions from his cholecystectomy and right subcostal incision. Two 5 mm ports were placed under direct visualization in the left upper quadrant and through those ports, adhesions were taken down bluntly and also using an energy device. There was no evidence of injury to the colon or other intestine. After taking down all those adhesions which went up to and were also adhered to the falciform ligament, two 5 mm ports were placed in the right upper quadrant under direct visualization. The most superior of those ultimately was up sized to a 12 mm port. It was at this point, although we planned to do intraoperative ultrasound that the laparoscopic ultrasound was not available, but the tumor could be visualized, and then also looking at the CT scan, I felt confident that a standard lateral segmentectomy would give microscopic clear margins. The line of resection of the liver parenchyma was marked with cautery and the medial portion of the left triangular ligament was opened. Using the energy device, I started by dividing liver parenchyma a couple of centimeters down into the liver. I was then able to start to use a stapler and using sequential vascular staple loads first posteriorly and then ultimately through the remaining parenchyma of the liver, the lobectomy was completed. I did use the energy device to finally divide the rest of the left triangular ligament and also to complete the division of the hepatic parenchyma. There was bleeding from the cut edge of the liver and that was controlled with an Argon beam. I also placed FloSeal and Surgicel over the cut edge as well. The hepatic vein, the hepatic artery and portal vessels and bile ducts were divided with the linear stapler using a vascular load amd there was no gross evidence of bleeding or bile leak. A 19-[place] Hemaduct drain was then placed against the cut edge of the liver and brought out through the left upper quadrant 5 mm trocar and it was secured with 2-0 nylon. The lateral segment had been placed into a large specimen bag. I made a Pfannenstiel incision that measured about 6 cm and the specimen bag was withdrawn through that incision. The right upper quadrant 12 mm trocar site was closed with 0 PDS. The supraumbilical trocar site was also closed with 0 PDS in the fascia. Prior to removing the scope and trocars, I did a tap block with a total of 20 cc of liposomal bupivacaine to block the lower abdominal wall and also the right upper quadrant trocar site. The skin incisions were closed with subcuticular 4-0 Vicryl. Steri-Strips and Band-Aids were applied. Pfannenstiel incision closed with 0 PDS in the fascia. Estimated blood loss 500 cc. There were no apparent complications. With respect to his heart, he was stable throughout the operation. He was extubated and transported to the recovery room in stable condition. Critical assistance was provided by Jitendra Brian M.D. and Ronnie Lowery PA-C without whose help the operation could not have been completed. MIGUEL ÁNGEL
--- NOTE | 2016-11-22 15:58 | DRSVH ---
PROCEDURE: X-RAY CHEST ONE VIEW, PORTABLE ([id number]) INDICATIONS: central line placement TECHNIQUE: One view of the chest was acquired. COMPARISON: [facility], CR, XR CHEST 1VW (PORTABLE), 08/21/2016, 13:43. FINDINGS: Surgical changes and devices: Right IJ CVL is in place tip projected over the upper SVC. There sharp angulation likely at the skin surface entrance point noted. Stable position of dual chamber left ca rdiac pacer and prior valvular replacement. Lungs and pleura: No pleural effusions or pneumothorax. Lungs are clear, aside from scattered atele ctasis at the left lung base.. Mediastinum: Mediastinal contours appear normal. Heart size is prominent for technique.. Bones and chest wall: No suspicious bony lesions. Overlying soft tissues appear unremarkable. IMPRESSION: 1. Placement of right IJ CVL and scattered atelectasis at the left lung base. Of note, sharp angulat ion noted likely at the skin surface involving the right IJ CVL. Recommend direct visualization to a ssure no kink is present. Dictated by: Kalen Chaudhary [facility] Interpreted: Clau Duff MD on 11/22/2016 at 15:55 Transcribed by: ISHAAN on 11/22/2016 at 15:58 Approved by: Clau Duff MD, PhD on 11/22/2016 at 16:39
[2016-11-22] MEDS ORDERED: Glycopyrrolate 0.2 MG/ML 1mL Inj ONE (16:13)
[2016-11-22] MEDS ORDERED: MetoCLOpramide 5 mg/mL 2 mL Inj ONE (16:13)
[2016-11-22] MEDS ORDERED: Dexamethasone 4 mg/mL Inj ONE (16:13)
[2016-11-22] MEDS ORDERED: Ondansetron 2 mg/mL 2 mL Inj ONE (16:13)
[2016-11-22] MEDS ORDERED: Ketamine 10 mg/mL 20 mL Inj ONE (16:13)
[2016-11-22] MEDS ORDERED: fentaNYL-PF 50 mCg/mL 2 mL Inj ONE (16:13)
[2016-11-22] MEDS ORDERED: Phenylephrine/NS 100 mCg/mL 10 mL Syringe IVPUSH ONE (16:13)
[2016-11-22] MEDS ORDERED: Neostigmine 1 mg/mL 10 mL Inj ONE (16:13)
[2016-11-22] MEDS ORDERED: Rocuronium 10 mg/mL 5 mL Inj ONE (16:13)
[2016-11-22] MEDS ORDERED: Propofol 10,000 mCg/mL 20 mL Inj ONE (16:13)
[2016-11-22] MEDS: Dextrose 5% Lactated Ringer's 1,000 ML IV SCH (16:27)
[2016-11-22] MEDS: HYDROmorphone 1 mg/mL Inj IVPUSH PRN ×4 (16:30→23:29)
[2016-11-22] MEDS: Acetaminophen IV 1,000 MG in IV Premix 1 EACH IV SCH ×2 (16:54→22:07)
[2016-11-22] MEDS ORDERED: Sodium Chloride LOK Flush 10 mL Syringe IVFLUSH PRN ×2 (17:25)
[2016-11-22] MEDS: Heparin 5,000 Unit/mL Inj SUBQ SCH (17:58)
--- NOTE | 2016-11-22 19:13 | CONS ---
[address] [address] CONSULTATION REPORT PATIENT: MARGARETH LOCKETT : 1935 MR#: [id number] ADMIT: 11/22/2016 JOB ID: [id number] DATE OF SERVICE: 11/22/2016 REASON FOR CONSULT: Dr. Juan Anne asked me to see this patient post surgery for his cardiac management. CHIEF COMPLAINT: The patient today underwent cholangiocarcinoma of the liver resection. PRESENT HISTORY: This 81-year-old, pleasant male who has a history of bioprosthetic aortic valve replacement in July 2012, recurrent ventricular tachycardia, on amiodarone, status post dual-chamber AICD, status post left heart catheterization in October 2014. 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 At that time as per the report no significant perfusion defect and LV ejection fraction 53% on gated study. Underwent liver surgery for hepatocholangiocarcinoma. He underwent laparoscopic resection of left lateral segments. According to Dr. Anne, he tolerated the procedure. There was no obvious complication. In the OR he received total of 1.5 L of LR fluid. At present, he is lying on bed. He had postprocedure right upper quadrant discomfort and given Dilaudid. He has some discomfort on the lateral aspect of right chest. No typical anginal pain. He is not having any active shortness of breath. No PND, orthopnea, or fever chills. No active bleeding. No stroke-like symptoms. Denies any discharge from AICD. 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 PAST SURGICAL HISTORY: As stated above. ALLERGIES: THE PATIENT HAS HISTORY OF COUGH WITH LISINOPRIL. SOCIAL HISTORY: Denies any current tobacco abuse or alcohol abuse. FAMILY HISTORY: Positive for coronary artery disease. REVIEW OF SYSTEMS: Ten-point review of systems was obtained. They are negative except as stated above. MEDICATIONS AT HOME: 1. Acyclovir 400 mg twice a day. 2. Amiodarone 200 mg daily. 3. Aspirin 81 mg daily. 4. Lasix 20 mg daily. 5. Hydrochlorothiazide 12.5 mg daily. 6. Metoprolol tartrate 12.5 mg daily. 7. Potassium chloride 20 mEq twice daily. 8. Simvastatin 20 mg daily. 9. Ibuprofen and loperamide as needed. PHYSICAL EXAMINATION: Blood pressure 111/73, heart rate 73, with AV sequential paced rhythm. Respiratory rate 11. Oxygen saturation on 4 L 99%. HEENT: No significant anemia. However, appears to have mild jaundice. Right IJ central line present. Difficult to comment upon JVD. Chest: Decreased air entry at the bases. CVS: S1, S2 appears normal. No S3, no S4. Grade 2/6 soft ejection systolic murmur at the base and lower sternal area. Abdomen: Patient has dressing on different laparoscopic site. The patient has subcutaneous emphysema on the lateral aspect of right chest. 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 Able to move all the four extremities. Extremities: Do not see any significant pedal edema. Vascular: No evidence of critical limb ischemia. On telemetry, the patient has AV sequential paced rhythm. LABORATORIES: Sodium 139, potassium 3.9, BUN 21, creatinine 1.35. Total bilirubin 1.5 with normal AST, ALT, alkaline phosphatase. Albumin 4.7, WBC 10.4, hemoglobin 9, platelets 160, polymorphs 89.6. ASSESSMENT/PLAN: Status post laparoscopic resection of left lateral segment of liver for cholangiocarcinoma. Cardiac problem includes a history of bioprosthetic aortic valve, history of ventricular tachycardia, on amiodarone for long time, status post dual-chamber AICD, severe RV dysfunction due to right ventricular myocardial infarction during AVR with severe TR without any significant pulmonary hypertension, sick sinus syndrome, essential hypertension, hyperlipidemia, chronically occluded right coronary artery, and history of PTCA of very distal LAD long time back. The patient received 1.5 L of LR in the OR. At present, he is getting 140 cc/hour. Clinically, patient at present is not in gross volume overload. Because of RV dilatation and significant RV dysfunction, he will need high volume to maintain RV output. At this point of time tonight will continue similar treatment to maintain cardiac and urine output. Tomorrow , we will reassess input, output, and adjust the dose of diuretics and the iv fluid. Continue his home medications. I will check his TSH as he is on amiodarone. His AST, ALT within normal limits. Consider pulmonary embolism prophylaxis. His AICD seems to be functioning okay. Thanks for the Cardiology consult. Will continue to follow this patient. WALTERD
--- NOTE | 2016-11-22 19:31 | NUR ---
Rec'd to room 2012 from PACU at 1530. Right a-line in place. Right triple lumen central line. IVF initiated as ordered. O2 4L NC, saturations upper 90's. Abdomen quiet, bandaids in place at lap sites. ELAINA left abdomen with bloody drainage, 90ml from [id number]. Moderate amount sero-sang drainage at ELAINA stab wound site. Right shoulder pain relieved with dilaudid 0.5mg x2 and IV tylenol 1000mg. Tolerates ice chips without problems, no n/v. Temperature 34.5ax on arrival to room, warm blankets applied. Monitoring UOP as ordered.
[2016-11-22] MEDS ORDERED: Potassium Chloride 20 mEq SR Tablet PO SCH (20:30)
[2016-11-22] MEDS: Acyclovir 400 mg Tablet PO SCH (20:44)
[2016-11-23 00:15] VITALS: BP 126/70; PULSE 79; RESP 17; O2SAT 99
[2016-11-23] MEDS: Heparin 5,000 Unit/mL Inj SUBQ SCH ×3 (00:54→15:44)
[2016-11-23] MEDS: Dextrose 5% Lactated Ringer's 1,000 ML IV SCH (00:54)
[2016-11-23] MEDS: HYDROmorphone 1 mg/mL Inj IVPUSH PRN ×6 (00:55→21:15)
[2016-11-23] MEDS: Acetaminophen IV 1,000 MG in IV Premix 1 EACH IV SCH ×3 (03:23→14:21)
[2016-11-23 04:12] VITALS: BP 107/52; PULSE 79; RESP 14; O2SAT 98
[2016-11-23 04:25] LABS: BASOPHILS % (AUTO) 0.1 % (0-3); EOSINOPHILS % (AUTO) 0 % (0-5); MONOCYTES % (AUTO) 11.1 % (4-12); Mean Corpuscular Hemoglobin 26.2 pg (27.0-35.0); Mean Corpuscular Volume 86.3 fL (81-100); NEUTROPHILS % (AUTO) 85.4 % (40-74); Platelet Count 148 bil/L (150-400)
--- NOTE | 2016-11-23 06:12 | NUR ---
UOP/ELAINA drain/pain pt urine output for this shift was 700cc, pts ELAINA drain saturated 3 dressings and put out 610cc of sero-sang fluid, most of pts pain was in his abd across the middle, he also had pain in his right shoulder, IV tylenol total of 2000mg and IV dilaudid total of 3mg and repositioned pt often. pts art line in right hand working, tele paced rate 60-80 with IVCD, SCDs in place.
[2016-11-23] MEDS: Acyclovir 400 mg Tablet PO SCH ×2 (07:46→20:10)
[2016-11-23 08:00] VITALS: BP 110/68; PULSE 80; RESP 20; O2SAT 98
[2016-11-23] MEDS ORDERED: Insulin Human REGular Inj 100 UNIT in 0.9% Sodium Chloride-Pha MIX 100 ML IV PRN (08:15)
[2016-11-23] MEDS: 0.9% Sodium Chloride 1,000 ML IV SCH (09:19)
--- NOTE | 2016-11-23 10:30 | PROG NOTE ---
[address] [address] PROGRESS NOTE PATIENT: MARGARETH LOCKETT : 1935 MR#: [id number] ADMIT: 11/22/2016 JOB ID: [id number] DATE: 11/23/2016 SUBJECTIVE: The patient is postoperative day one following laparoscopic hepatic lateral segmentectomy for cholangiocarcinoma. He is doing well. Pain is well controlled with primarily IV Tylenol. He denies shortness of breath or chest pain. PHYSICAL EXAMINATION: He is alert, no distress. He has eaten solid food. He is smiling, answers questions appropriately. Temperature is 36.0, brachial blood pressure 107, systolic, pulse 79, respiratory rate 14. O2 sat on 4 L is 98%. HEENT: Nonjaundiced. Neck: He is sitting. No distended neck veins. A CVP has not been measured. Lungs: Clear. Cardiac exam: Regular rhythm, a 2/6 systolic ejection murmur. Abdomen: Flat, soft. Band-Aids are dry. Jared-Randle drain, 610 cc the first 8 hours of today. I think there is some bile in it, but mostly light serosanguineous. Urine output 700 cc the first 8 hours of today. LABORATORY RESULTS: White blood cell count 9.6, hematocrit is 29.7, which is stable, platelet count 148,000. Sodium 139, potassium 5.3, creatinine 0.9, glucose is 220. Bilirubin 1.3. AST 153, ALT 141. IMPRESSION: Doing well in all regards. Again, I think he has a small bile leak from the exposed cut edge of his liver. This is expected. The volume is not unexpected coming out of his ELAINA. He has good urine output. Glucose: I have switched his IV to normal saline and have now made it TKO. Will continue all of his normal medications including his furosemide and hydrochlorothiazide. Recheck electrolytes later today. Recheck a CBC, CMP, magnesium tomorrow morning. Discontinue Schaefer catheter tomorrow morning.
[2016-11-23 12:00] VITALS: BP 94/60; PULSE 82; RESP 18; O2SAT 99
--- NOTE | 2016-11-23 13:34 | PROG NOTE ---
[address] [address] PROGRESS NOTE PATIENT: MARGARETH LOCKETT : 1935 MR#: [id number] ADMIT: 11/22/2016 JOB ID: [id number] DATE: 11/23/2016 SUBJECTIVE: The patient is feeling better. IV fluid has stopped. His abdominal pain has decreased. No active chest pain or worsening shortness of breath or bleeding or new cardiovascular symptoms. OBJECTIVE: Blood pressure 107/52, heart rate 79, respiratory rate 14, oxygen saturation 4 L 98%. So far, urine output 1310 mL. The patient still has right IJ central line. Chest: Decreased air entry at the bases. CVS: S1-S2 appears normal. No S3, no S4. Grade 2/6 soft ejection systolic murmur at the base and lower sternal area without any significant change since yesterday the patient still has laparoscopic site dressing in his abdomen. Subcutaneous emphysema on the lateral aspect of the right chest has decreased. 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 Extremities: At present no significant pedal edema. Vascular: No evidence of critical limb ischemia. On telemetry the patient has ventricular paced rhythm. LABORATORIES: WBC 9.6, hemoglobin 9, platelets 148 yesterday. Hemoglobin was 9 as well. Sodium 139, potassium 5.3, BUN 24, creatinine 0.91. Yesterday creatinine was 1.35. Total bilirubin 1.3. AST 153, ALT 141. TSH 1.66. ASSESSMENT AND PLAN: Status post laparoscopic resection of left lateral segment of liver for cholangiocarcinoma with underlying cardiac problems which include history of bioprosthetic aortic valve. In July 2012, recurrent ventricular tachycardia on amiodarone as well as dual-chamber AICD, history of left heart catheterization in October 2014, at that time occluded proximal right coronary artery with right to right and left to right collaterals filling the distal branches, right ventricular infarction at the time of valve surgery with profound LV dilatation dysfunction and severe TR without any significant pulmonary hypertension, status post myocardial perfusion study in August 2016 without any significant perfusion defect and LV ejection fraction 53%. On gated study. At present, patient is hemodynamically stable. He is not in gross right-sided heart failure. He received IV fluid during surgery and overnight which has been discontinued. The patient has started taking orally. He is drinking water as well. He has been on amiodarone for a long time for recurrent ventricular tachycardia. His recent TSH is normal. His AST, ALT went up likely due to yesterday's liver resection surgery for cholangiocarcinoma. Will recommend close watch of his liver function. Meanwhile, we will recommend his home medications to be continued. Will recommend followup with Dr. Norman who is his carton wrapper as an outpatient. At this point of time, Cardiology service will follow as needed. Please feel free to call us if needs any further assistance. MIGUEL ÁNGEL
--- NOTE | 2016-11-23 14:24 | NUR ---
Social Work- Initial Assessment Data: See Initial Assessment. Pt is a 81 year old male admitted 11/22/16 for liver cholangio cancer per H&P. Pt's insurance is [employer]. Pt's PCP is Jorge Xie MD. Pt's readmit risk score is 3, high risk. SUPERVISOR COMPRESSED YEAST met with pt at bedside regarding discharge plan, SW role explained. Pt alert and oriented x3. Pt resides in a single level home in [place] with his , Kat, where he remains independent at baseline. Pt uses a cane at baseline, only drives when absolutely necessary. Pt has no HH or SNF history, has no LTC or VA benefits. Pt has Advance Directives complete, copy in chart. Pt to discharge home with to transport via POV. No anticipated discharge needs. SW will continue to follow. Assessment: Pt who is independent at baseline. Plan: Pt to discharge home with to transport via POV. No anticipated discharge needs. SW will continue to follow. SUSY Diamond Addendum: 11/23/16 at 1425 by BRIAN SANDRA Amended: Links added.
[2016-11-23 16:00] VITALS: BP 112/75; PULSE 80; RESP 16; O2SAT 99
--- NOTE | 2016-11-23 17:10 | NUR ---
P: Resp, Hemodynamics, Nutrition, Social I,E: Pt has been turned down to 3l O2 via NC and his sats are high 90's. He does have a moist productive cough and is expectorating thick yellowish sputum. He has been using the IS frequently today and getting good volumes. He remains 100% paced and VS are stable with current BP 111/69. However, pt BP did drop to the 70's when he sat up on the edge of the bed. Pt states this is common for him and when he gets up at home he "always feels dizzy" initially. Hi BP is generally 110's sys. UOP was 600cc. Pt has been able to have a general diet advancing as tolerated. He has had fruit and soup today and is able to take liquids well. His was in to visit this am and his daughter came by at lunch to visit as well. Pt is moving about well, and was up with PT and walking around the room. He also sat up on the edge of the bed for approx 30 mins. He has had tylenol IV for pain and states this has worked well for him and I gave him .5mg of Dilaudid for recurrent pain this afternoon which was also effective.
[2016-11-23 20:30] VITALS: BP 112/62; PULSE 91; RESP 19; O2SAT 96
[2016-11-24] VITALS (8 sets, daily range): BP systolic 87–134; BP diastolic 42–98; PULSE 80–118; RESP 16–23; O2SAT 92–95
[2016-11-24] MEDS: Heparin 5,000 Unit/mL Inj SUBQ SCH ×2 (00:33→08:30)
[2016-11-24] MEDS: HYDROmorphone 1 mg/mL Inj IVPUSH PRN ×2 (00:38→03:55)
--- NOTE | 2016-11-24 05:15 | NUR ---
P: low grade temperature I: using incentive spirometer E: Max temp 37.7 AX. Independently using incentive spirometer up to 1250ml. Encourage DBs. c/o mild dyspnea at rest increasing w/ exertion. 3L NC change to 3L oxymask and sats trend down to 90% on NC. Sats on 3L oxymask 92-95%. c/o abdominal pain 4-5/10. Dilaudid 1mg IVP brings pain down to 1/10. Assist to BSC w/ FWW. Flatus only. Stood at bedside. HR up to 120-140s. Pt states his AICD fires at HR 147. No shock. AV to intermittent V paced along w/ PVCs, intermittent wide complex. Stable low BP. UOP 50ml/hr. ELAINA output less.
[2016-11-24 05:49] LABS: BASOPHILS % (AUTO) 0.3 % (0-3); EOSINOPHILS % (AUTO) 1.5 % (0-5); MONOCYTES % (AUTO) 13.1 % (4-12); Mean Corpuscular Volume 87.3 fL (81-100); Platelet Count 142 bil/L (150-400)
[2016-11-24 06:20] LABS: Magnesium 2.1 mg/dL (1.6-2.6)
[2016-11-24] MEDS ORDERED: HYDROcodone-APAP 5-325 mg Tablet PO PRN (07:05)
[2016-11-24] MEDS: 0.9% Sodium Chloride 1,000 ML IV SCH ×2 (08:15→17:35)
[2016-11-24] MEDS: Acyclovir 400 mg Tablet PO SCH ×2 (08:28→21:33)
[2016-11-24] MEDS ORDERED: 0.9% Sodium Chloride 1,000 ML IV SCH (10:30)
--- NOTE | 2016-11-24 10:53 | PROG NOTE ---
[address] [address] PROGRESS NOTE PATIENT: MARGARETH LOCKETT : 1935 MR#: [id number] ADMIT: 11/22/2016 JOB ID: [id number] DATE: 11/24/2016 SUBJECTIVE: The patient is seen on postoperative day two following his laparoscopic lateral hepatic segmentectomy. He continues to overall do very well. His IV has been Hep-Locked since yesterday. He has had no obvious cardiovascular issues. He was able to walk yesterday. He passed gas. He is eating solid food. He has had no nausea or vomiting. REVIEW OF SYSTEMS: He denies chest pain or shortness of breath. He states his pain is most of time in the 4-5 range. PHYSICAL EXAMINATION: Temperature is 37.7, brachial blood pressure 90/59, pulse 98, respiratory rate 23, O2 sat on 3 L is 92%. HEENT: Nonjaundiced. Neck: Right internal jugular central line. No masses. Lungs: Clear. Cardiac examination: 2/6 systolic ejection murmur. Abdomen: Incisions are doing well. His Jared-Randle drain coming out his left upper quadrant appears serosanguineous, 145 cc the first 8 hours of today. Urine output: 1300 cc yesterday, 660 cc so far today. His weight is 87.8, and on admission was 87.9. LABORATORY RESULTS: White blood cell count is 10.9. Hematocrit is stable at 29.6, platelet count 142,000. His electrolytes are normal. Potassium today 4.7, creatinine 1.02, glucose 137, total bilirubin 1.4. AST is down to 94. ALT down to 123. IMPRESSION: Overall he continues to do extremely well, though a little hypotensive. PLAN: Will discuss with Dr. Angelo. I am not concerned about his temperature at this time. His Schaefer catheter will be removed.He is encouraged to get up and walk as much as possible. We will switch him tooral analgesics with acetaminophen and hydrocodone/APAP. He can shower. MTDD
--- NOTE | 2016-11-24 11:11 | PROG NOTE ---
[address] [address] PROGRESS NOTE PATIENT: MARGARETH LOCKETT : 1935 MR#: [id number] ADMIT: 11/22/2016 JOB ID: [id number] DATE: 11/24/2016 SUBJECTIVE: Today, the patient is not feeling better. He has developed fever of 99.6. Patient stood up, got lightheaded and heart rate went up to 150 as per the nurse. No chest pain. He is coughing up some yellowish sputum. No worsening shortness of breath. No active wheezing. He has abdominal pain since his liver surgery. According to him, it is not getting worse. He is able to pass gas but since his surgery, he has not move his bowels. OBJECTIVE: Vitals: Blood pressure 97/64, heart rate at present about 101. Respiratory rate 20, oxygen saturation on 3 L of 95%. HEENT: The patient has a right IJ. Difficult to comment upon JVP. Chest: Decreased air entry at the bases. CVS: S1 appears to be variable. P2 does not appear to be loud. No S3. No S4. Grade 2/6 soft ejection systolic murmur at the base and lower sternal area which is chronic. I do not appreciate any new murmur. Abdomen: The patient has tenderness in the right upper quadrant. I do not see and appreciate any significant subcutaneous emphysema today. Extremities: No significant pedal edema. 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 A 12-lead EKG done now which revealed likely atrial fibrillation with ventricular rate about 103 with intermittent some paced rhythm with QRS complexes in V1 to V3 which are old. The patient has diffuse asymmetrical T-wave inversion in anterior leads and lateral leads which are old. I compared his EKG with the EKG done in March 2015. At that time also he had similar changes. There were Q-waves in inferior leads as well. QTc 453 msec. LABORATORY: Hemoglobin 8.8, yesterday it was 9.0. WBC 10.9. On November 22 it was 10.4, yesterday 9.6. Polymorphs 81. On November 22 it was 89.6. INR 0.98. Sodium 139, potassium 4.7, BUN 20, creatinine 1.02. His AST decreased to 94, ALT has decreased to 123 from 141, total bilirubin 1.4. Magnesium 2.1. ASSESSMENT AND PLAN: Atrial fibrillation with fast ventricular rate in the setting of postoperative state. The patient underwent lateral segment of left lobe of liver resection laparoscopically for liver cholangiocarcinoma by Dr. Juan Anne on November 22, 2016. 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 I discussed the case with Dr. Juan Anne and discussed about temperature today, as well as his other noncardiac symptoms. According to Dr. Anne, it is common to have temperature after this kind of surgery. At this point of time, he will observe. From cardiac perspective at this point of time, I will hold his diuretics. I will give him gentle hydration for 6 hours, as severe right ventricular dilatation and dysfunction will need optimum filling pressure. Prior to surgery, the patient had echocardiogram in August 2016. At that time left ventricular ejection fraction 40% to 45%, normal functioning aortic valve, severe tricuspid regurgitation and severe right ventricular dysfunction, without any significant pulmonary hypertension. The patient had a perfusion study in August 2016. There was no significant perfusion defect as per the report. On my physical examination, I do not see any significant worsening of murmur. At present, no clinical stigmata of endocarditis. He is 81 years old with known history of vascular disease, history of ischemic heart disease, hypertension. Hence, based on CHADS2 vascular score, he will need anticoagulation for stroke prevention. I discussed with Dr. Anne about safety of therapeutic anticoagulation in his case. According to Dr. Anne, it is already more than 48 hours since surgery, and he does not see any absolute contraindication from a surgical point of view. Hence, will recommend therapeutic anticoagulation. will also check cardiac markers. Discussed the plan with the patient, as well as his nurse. Tomorrow, my associate, Dr. Felix, will be available to see the patient. TOTAL TIME SPENT TODAY: About 45 minutes. [facility] CENTERRoxie
[2016-11-24] MEDS ORDERED: Heparin 25K Unit/500mL 0.45 NS 25,000 UNIT in IV Premix 1 EACH IV SCH (11:50)
[2016-11-24 13:09] LABS: INR 1.06 ratio
[2016-11-24 17:43] LABS: Creatine Kinase 143 U/L (21-232)
[2016-11-24 17:45] LABS: TROPONIN T < 0.010 ug/L (0.0-0.011)
--- NOTE | 2016-11-24 17:59 | NUR ---
P: Resp, Hemodynamics, Nutrition,Pain I,E: Pt continues to require O2 at 3-4l via NC. Sats without O2 drop to mid 80's. with O2 he sats mid to high 90's. He continues to have an intermittent cough and is expectorating white thick sputum. He is using the IS well, independently. Pt's HR this am was up to 150's after he got up out of bed. He was in a fib for some time today, with freq paced beats also. Cardiology was notified and EKG completed. Heparin gtt was started per Dr Angelo NO bolus, per cardiac protocol. He is currently in SR with IVCD and freq paced beats. Pt had a temp this am 37.7. MD is aware. He has been afebrile since this am and states he feels better this afternoon. When he got up with PT his HR maxed at 130. Currently he is back to 70's and 80's. He has NS infusing at 60cc/hr per Dr Angelo. UOP adequate. He is also taking PO fluids well and is tolerating small amount of his diet. ELAINA drainage has decreased today. Pt has not required insulin, last OT was 126. Pt has only taken tylenol for pain today and states his pain is minimal at 1-2/10. Pt's was here today and I updated her on plan of care. olmedo removed this evening.
--- NOTE | 2016-11-24 18:44 | NUR ---
Pt continues to have orthostatic hypotension Pt drops as low as the 70's sys when he gets up out of bed. He states he feels a little dizzy but he states this is how he feels at home when he gets up also. Laying back down BP increases back to the 90s' sys. His HR did not go above 100 this evening when he got up. NS continues at 60cc/hr per MD.
[2016-11-24] MEDS ORDERED: SODIUM CHLORIDE IV ONE (23:00)
[2016-11-25] VITALS (10 sets, daily range): BP systolic 71–124; BP diastolic 52–82; PULSE 61–90; RESP 19–23; O2SAT 93–100
[2016-11-25] MEDS: 0.9% Sodium Chloride 1,000 ML IV SCH (05:35)
--- NOTE | 2016-11-25 06:20 | NUR ---
NUTRITION ASSESSMENT: ASSESS:81 YO male admitted with liver cholangiocarcinoma; POD #3 following laparoscopic lateral hepatic segmentectomy, per [facility]AP protocol. He continues to overall do very well, per surgery. Cardiology noting atrial fibrillation with fast ventricular and hypotension rate postoperatively. Nursing reporting that patient is passing flatus and is tolerating fluids and small amount general diet. ELAINA drainage decreasing, 235 mL yesterday. UPO adequate. PMHx:Bioprosthetic aortic valve replacement in 2013, chronically occluded RCA, history of right ventricular infarction during AVR surgery resulted in severe RV dysfunction, dilatation and severe MR without any significant pulmonary hypertension, ventricular tachycardia, on chronic amiodarone, status post dual-chamber AICD, sick sinus syndrome, history of right-sided heart failure, essential hypertension, hyperlipidemia. DIET:General. PO intake not yet recorded. LABS: Reviewed. Glu 137, Ca 8.1, Total Bili 1.4, AST 94, ALT 123, Alb 3.2. MEDICATIONS: Reviewed. NUTRITION FOCUSED PHYSICAL ASSESSMENT: GI symptoms / stool: No stool reported.Sean: 19.0. Skin Integrity: No issues reported. ANTHROPOMETRICS: Current Wt: 83.2 kgBMI: 24.0 kg/m2.Admit weight: 84.8 kg IBW: 80.9 kg (105% IBW) ESTIMATED NEEDS (SCOAP): Calories: 2120 - 2544 kcal (25 - 30 kcal / kg BW) Protein: 85 - 127 g protein (1.0 - 1.5 g / kg BW) Fluid: Approx. 2120 mL (25 mL / kg BW) NUTRITION DIAGNOSIS: 1)Increased nutrient needs related to increased demand for nutrients, as evidenced by post-operative status, lap lateral hepatic segmentectomy. INTERVENTION: 1) Add Impact Advanced Recovery supplement to trays. MONITOR/EVALUATE: Diet / supplement tolerance, PO intake, GI status, labs, nutritional status. Follow up per moderate nutrition risk guidelines.
--- NOTE | 2016-11-25 06:35 | NUR ---
Hypotension Pt alert and oriented x3. Afebrile. He c/o headache and reported Tylenol effective for pain. SBP 80s/ DBp 50s. MAP 60-66. Patient was asymptomatic. He denies any dizziness when laying in bed. He reports that he gets the " lightheadedness" when getting up even at home. Pt stayed in bed all night and using urinal frequently. Md made aware of low BP. 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 Dr Angelo called to cancel some lab orders last night and was made aware of pt's low BP. NS bolus 150 cc given with minimal increase on the BP. Pt voiding frequently per urinal about 680 cc output noted at this time. Heparin gtt per protocol. No bleeding noted at this time. ELAINA drain noted total of [address] Angelo updated this am regarding patient low BP. New orders noted. CVP 11 noted. Order to hold am dose of Metoprolol and 1st dose of Amiodarone this am noted.
[2016-11-25 06:53] LABS: BASOPHILS % (AUTO) 0.2 % (0-3); EOSINOPHILS % (AUTO) 2.6 % (0-5); MONOCYTES % (AUTO) 9.9 % (4-12); NEUTROPHILS % (AUTO) 77.2 % (40-74); Platelet Count 111 bil/L (150-400)
[2016-11-25] MEDS: Acyclovir 400 mg Tablet PO SCH ×2 (07:40→20:31)
--- NOTE | 2016-11-25 09:42 | PCM.PNCARD ---
Subjective Date of service November 25, 2016 Chief Complaint S/p surgery Constitutional: Denies: Chills, Fever, Sweats Eyes: Denies: Blurred Vision Cardiovascular: Reports: Irregular Heart Rate, Rapid Heart Rate, Denies: Chest Pain, Edema, Palpitations, SOB on Exertion, SOB while laying flat Respiratory: Reports: Cough, Denies: Cough with bloody sputum, SOB with Exertion, Shortness of Breath, Snoring Gastrointestinal: Reports: Abdominal Pain, Denies: Black tarry stools, Blood in stool (red) Genitourinary: Denies: No burning or pain with urination Musculoskeletal: Denies: Shoulder Pain, Swelling Skin: Denies: Bruising, Dry or Flakiness Neurological: Denies: Confusion Endocrine: Reports: Blood Glucose Review Exam Vital Signs Vital Sign - Last Date Time Temp Pulse Resp B/P Pulse Ox O2 Delivery O2 Flow Rate FiO2 11/25/16 08:00 Supplement Oxygen 11/25/16 04:12 37.0 80 20 89/56 93 3.00 Intake and Output 11/24/16 11/24/16 11/25/16 Cumulative From/Thru 15:00 23:00 07:00 11/17/16 16:39 - 11/25/16 06:33 Intake Total 1296 ml 1389 ml 8660 ml Output Total 940 ml 715 ml 6035 ml Balance 356 ml 674 ml 2625 ml Intake Oral 600 ml 300 ml 2175 ml IV Total 696 ml 1089 ml 6485 ml Output Urine Total 850 ml 680 ml 4090 ml Drainage Total 90 ml 35 ml 1445 ml Estimated Blood Loss 500 ml # Bowel Movements 0 0 General: Pleasant Cooperative Skin: Warm & dry to touch Head: Normocephalic Eye: EOMS intact Chest: Clear auscultation w/o rales/wheeze Cardiac: Irregularly irregular rhythm Systolic murmur Pulses: Pulses full/equal all extremities Extremities: Warm w/o deformities,erythema noted Neurological: Alert & oriented Psychological: Affect & interaction appropriate Lab and Diagnostics Result Diagram: 11/25/1662911/25/16629 Assessment & Plan Problems: (1) CAD (coronary artery disease) Qualifiers: Coronary Disease-Associated Artery/Lesion type: nome artery [place] vs. transplanted heart: nome heart Associated angina: without angina Qualified Code: I25.10 - Atherosclerotic heart disease of nome coronary artery without angina pectoris Plan: He appears to be very stable from a heart disease stand point of view. He has new onset afib and he was placed on IV heparin but he became more anemic. However I believe this was not a direct correlation with the IV heparin. Nevertheless, IV heparin was stopped and he will start back on Heparin SC and continue with ASA 81 mg once a day. He continues to be in afib as well but can be exacerbated his preload dependency as well on top of his hypovolemia/anemia. But, we cannot proceed with cardioversion since he cannot go on warfarin or NOAC for now. At this time, I would recommend that we give him 1-2 PRBCs which should help with his preload and start PT BASSAM and see how he does. I agree for now to hold his BP meds but continue with amiodarone for rhythm control given his hx of Vtach and now new onset afib. His EKG from yesterday show ST-T changes but these are chronic. There might be some changes but given his rapid afib and hx of CAD, he probably did have some minimal acute coronary insufficiency. Once he is ambulating and BP is a little more stable then we can restart some of his BP meds. I will continue to follow up with you on this patient. Status: Acute ICD Code: I25.10 (2) Right heart failure with reduced right ventricular function Plan: He is preload dependent which is causing his lightheadedness and dizziness when he stands up too quickly. This is worse but chronic for him. Continue with slow IVFs and PRBC and closely monitor his CVP with central line and monitor O2 sats and any symptoms for acute CHF. Status: Chronic ICD Code: I50.9 (3) Atrial fibrillation Qualifiers: Atrial fibrillation type: unspecified Qualified Code: I48.91 - Unspecified atrial fibrillation Plan: New onset. For now, hold anticoagulation but we will make a decision on this prior to discharge. He is on amiodarone already for hx of Vtach. We will restart his metoprolol when he is a little more hemodynamically stable. Status: Acute ICD Code: I48.91 (4) Ventricular tachycardia Plan: On amiodarone. Onset Date: 08/03/2014 Status: Chronic ICD Code: I47.2 (5) SSS (sick sinus syndrome) Status: Chronic ICD Code: I49.5 (6) History of aortic valve replacement with bioprosthetic valve Status: Chronic ICD Code: Z95.4 VTE Mechanical Devices: Intermittant Pneumatic CD Time spent 30 minutes Manolo Felix MD November 25, 2016 09:42
[2016-11-25] MEDS ORDERED: KCl 40 mEq/100 mL (CENTRAL) 40 MEQ in IV Premix 1 EACH IV ONE (09:50)
[2016-11-25] MEDS: 0.9% Sodium Chloride 250 ML IV SCH (10:01)
--- NOTE | 2016-11-25 10:24 | DRSVH ---
PROCEDURE: X-RAY CHEST ONE VIEW, PORTABLE ([id number]) INDICATIONS: worsening cough TECHNIQUE: One view of the chest was acquired. COMPARISON: [facility], CR, XR CHEST 1VW (PORTABLE), 11/22/2016, 14:08. FINDINGS: Surgical changes and devices: Stable positioning of left chest AICD. Stable positioning of right IJ CVL. Prior valvular replacement. Lungs and pleura: No pleural effusions or pneumothorax. Airspace opacity causing medial right lung base. Mediastinum: Mediastinal contours appear normal. Heart size is enlarged. Bones and chest wall: No suspicious bony lesions. Overlying soft tissues appear unremarkable. IMPRESSION: 1. Stable positioning of right IJ CVL. 2. Cardiomegaly and medial left basilar airspace opacity which may be related to atelectasis but deve loping pneumonia cannot be excluded. Dictated by: Kalen BERNAL Interpreted: Greg Johnson MD on 11/25/2016 at 10:22 Transcribed by: SHERYL on 11/25/2016 at 10:23 Approved by: Greg Johnson M.D. on 11/25/2016 at 14:30
--- NOTE | 2016-11-25 10:43 | PCM.CHPMED ---
Subjective Date of Service: November 25, 2016 Provider requesting consult: Manolo Felix MD Primary Physician: Admitting Physician: Juan Anne MD Primary Care Physician: Jorge Xie MD Attending Physician: Juan Anne MD Admit Status: Critical Care Chief Complaint: Chief Complaint: Acute blood loss anemia likely secondary to recent procedures and fluid resuscitation History of Present Illness: CRITICAL CARE CONSULT NOTE Attending physician: Dr. Inocencia Whitehead; requesting physician: Dr. Felix Mr. Goldsmith is a pleasant 81 year old gentleman with an unfortunate history of cholangiocarcinoma, and a complicated cardiac history including chronically occluded RCA, bioprosthetic aortic valve placement, history of ventricular tachycardia s/p dual-chamber AICD placement, and long-term amiodarone therapy, that presented to [facility] 11/22/2016 for hepatic segmentectomy for cholangiocarcinoma. Due to his complicated cardiac history, patient was admitted to the CCU for continued monitoring. ICU team was asked to consult for continued management in conjunction with the cardiac and surgical teams. Hospital day 4 Laparoscopic hepatic segmentecomy POD 3 Mr. Goldsmith was admitted to the surgical service for hepatic segmentectomy, reported to have tolerated well. Post-operatively, cardiology service was consulted to assist in management of his complicated history. Thus far, he has received a brief course of heparin gtt secondary to new-onset AF that developed post-operatively, now transitioned to SQ + ASA 81mg. He cannot complete cardioversion at this time, as he cannot initiate warfarin or NOAC therapy, due to his recent surgical procedure. BP medications were cautiously held secondary to his decreased BP readings and current bed-rest secondary to his ongoing dizziness and lightheadedness. At this time of consult, he was resting in bed comfortably. He denies any fever , SOB, CP, nausea, vomiting, chills. He states that he has not yet had a bowel movement. Denies hematuria or dysuria. Denies any dysphagia, cough. Denies dizziness/lightheadedness at rest in bed. Does report fatigue and sleepiness, and poor sleep at night. CCU team consulted to assist in continued management in conjunction with the cardiac and surgical team. 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 Acyclovir 400 mg twice a day. 2. Amiodarone 200 mg daily. 3. Aspirin 81 mg daily. 4. Lasix 20 mg daily. 5. Hydrochlorothiazide 12.5 mg daily. 6. Metoprolol tartrate 12.5 mg daily. 7. Potassium chloride 20 mEq twice daily. 8. Simvastatin 20 mg daily. 9. Ibuprofen and loperamide as needed. Allergies: Coded Allergies: lisinopril (Verified Allergy, Unknown, cough, 10/27/16) Patient states lisinopril makes him cough but he is currently taking lisinopril and denies having a cough Family History Family History Reported: CAD Social History Hx Alcohol Use: YesAlcoholic Drinks Per Day: one drink every few weeks Hx Substance Use: NoHx Tobacco Use: Yes (quit 19 yrs ago) Smoking Status: Former Smoker Exam Vital Signs Vital Sign - Last Date Time Temp Pulse Resp B/P Pulse Ox O2 Delivery O2 Flow Rate FiO2 11/25/16 08:00 Supplement Oxygen 11/25/16 04:12 37.0 80 20 89/56 93 3.00 Intake and Output 11/24/16 11/24/16 11/25/16 Cumulative From/Thru 15:00 23:00 07:00 11/17/16 16:39 - 11/25/16 06:33 Intake Total 1296 ml 1389 ml 8660 ml Output Total 940 ml 715 ml 6035 ml Balance 356 ml 674 ml 2625 ml Intake Oral 600 ml 300 ml 2175 ml IV Total 696 ml 1089 ml 6485 ml Output Urine Total 850 ml 680 ml 4090 ml Drainage Total 90 ml 35 ml 1445 ml Estimated Blood Loss 500 ml # Bowel Movements 0 0 General: Alert, Oriented X3, Cooperative, No Acute Distress Head: Normal Eyes: EOMI, Scleral Anicteric Nose: Mucous Membr Moist/[place] Mouth: Mucous Membr Moist/[place] Neck: Supple Chest & Lungs: Auscultation (clear bilaterally all sun), No adventitious breath sounds, Other (Left upper chest- palpation of AICD) Cardiovascular: Murmur (Systolic III/) Pulses: Radial (equal and bilateral) Abdomen: Non-tender, Non-distended, Soft, Other (port sites free of erythema, no active bleeding) Extremities: No cyanosis/clubbing/edma bilat Neurological: Grossly Neurologically Intact, Normal Speech (without slur) Lab and Diagnostics Result Diagram: 11/25/1662911/25/16629 Assessment & Plan Assessment CRITICAL CARE CONSULT NOTE Attending physician: Dr. Inocencia Whitehead; requesting physician: Dr. Felix Mr. Goldsmith is a pleasant 81 year old gentleman with an unfortunate history of cholangiocarcinoma, and a complicated cardiac history including chronically occluded RCA, bioprosthetic aortic valve placement, history of ventricular tachycardia s/p dual-chamber AICD placement, and long-term amiodarone therapy, that presented to [facility] 11/22/2016 for hepatic segmentectomy for cholangiocarcinoma. Due to his complicated cardiac history, patient was admitted to the CCU for continued monitoring. ICU team was asked to consult for continued management in conjunction with the cardiac and surgical teams. Hospital day 4 Laparoscopic hepatic segmentecomy POD 3 Assessments - Intrahepatic cholangiocarcinoma s/p laparoscopic hepatic segmentectomy; POD 3 - Acute blood loss anemia likely secondary to intra-operative losses and fluid resuscitation efforts - New-onset atrial fibrillation - Electrolyte abnormalities, likely secondary to post-operative fluid shifts and resuscitation efforts - Hypokalemia, hypernatremia, hyperchloremia Plan - Type and cross blood - Transfuse ONE unit pRBC; keep one unit on hold; consent obtained and placed in chart - Repeat HH this afternoon - Resume DVT prophy with SQ hep q8h - Repeat EKG to eval ongoing AF - Continue to monitor electrolytes; replete prn, protocol in place - CXR this am - Encourage ambulation with assistance DVT: hepSQ q8 GI: Not indicated Diet: General PRn fever/bowel/pain Code: DNR/DNI Additional blood given to improve preload. Thank you for this consult, we will happily assist in the monitoring of this patient during his stay in the CCU. Total critical care time: 75 minutes Problems: Pain Evaluation: Adequate Pain Control VTE Mechanical Devices: Intermittant Pneumatic CD Resuscitation Status: DNR/DNI:Do Not Resuscitate/Intubate Attending Statement I have seen and examined this patient with the resident physician. Vital signs , labs, imaging have been reviewed. I agree with the assessment and plan above. Please refer to my separately dictated progress note for any modifications to above. Bettina Whitehead M.D. Pulmonary and Critical Care medicine Pager [phone] Eileen River DO November 25, 2016 09:34 Bettina Whitehead MD November 25, 2016 13:57
--- NOTE | 2016-11-25 14:13 | PROG NOTE ---
[address] [address] PROGRESS NOTE PATIENT: MARGARETH LOCKETT : 1935 MR#: [id number] ADMIT: 11/22/2016 JOB ID: [id number] DATE: 11/25/2016 Postoperative day three following laparoscopic hepatic lateral segmentectomy. He went into atrial fibrillation yesterday. Because of that, he was started on full-dose anticoagulation with my permission. He remains a little hypotensive today with his blood pressure 89, but his hematocrit has dropped. But the patient feels significantly better than yesterday. He is passing gas. He has no abdominal pain. He denies shortness of breath and he is passing gas, eating solid food. PHYSICAL EXAMINATION: Temperature 37.0, brachial blood pressure 89/56, pulse 80, respiratory rate is 20. O2 sat on 3 L is 93%. Abdomen: The Jared-Randle drain is turning light serosanguineous. The output is 35 cc the first 8 hours of today, 235 cc yesterday, 935 cc postop day one. All incisions are healing well. LABORATORY RESULTS: Hematocrit 24.1, white blood cell count 8.6, platelet count 111,000. Sodium 147, potassium 3.3, chloride 109, creatinine is 1.0. Glucose 106. IMPRESSION: Hypotension. His CVP this morning was 11. His going to get a unit of blood. Anticoagulation was stopped. Dr. Angelo actually just came by and told me he has converted to sinus rhythm. I do not think this represents surgical bleeding. When his blood pressure has improved, will ambulate him more. Continue regular diet Pathology report is pending. Dr. Whitehead is also on board and we will follow his electrolytes. Potassium is being replaced.
[2016-11-25 15:07] LABS: BASOPHILS % (AUTO) 0.3 % (0-3); EOSINOPHILS % (AUTO) 1.6 % (0-5); MONOCYTES % (AUTO) 8.5 % (4-12); Mean Corpuscular Hemoglobin 27.2 pg (27.0-35.0); Mean Corpuscular Volume 86.1 fL (81-100); NEUTROPHILS % (AUTO) 82.7 % (40-74); Platelet Count 135 bil/L (150-400)
--- NOTE | 2016-11-25 15:45 | CONS ---
[address] [address] CONSULTATION REPORT PATIENT: MARGARETH LOCKETT : 1935 MR#: [id number] ADMIT: 11/22/2016 JOB ID: [id number] DATE OF SERVICE: 11/25/2016 PULMONARY CRITICAL CARE CONSULTATION NOTE: The patient is a 81-year-old man seen in consultation at request of Dr. Juan Anne for hypotension following liver resection for cholangiocarcinoma. The patient was seen and evaluated with resident physician, Eileen River DO. Please refer to her separate detailed note for additional information. HISTORY OF PRESENT ILLNESS: Briefly, the patient is 81 years old with a significant cardiac history, including bioprosthetic aortic valve replacement, a right ventricular infarct, who was admitted for elective segmentectomy of the liver for cholangiocarcinoma by Dr. Juan Anne. This was done on November 22, 2016. The patient has been monitored in the ICU subsequently. He appears to have developed atrial fibrillation which was a new diagnosis for him. He was started on IV heparin drip yesterday by Dr. Angelo. Overnight, he has been hypotensive, and his hemoglobin this morning is down to 7 from previous baseline of 9 to 10 yesterday. His heparin drip was stopped this morning, but he remains hypotensive with blood pressure in the 80s for which he has been receiving IV fluid. From a respiratory standpoint, he is relatively stable on OxyMask 5-6 L. Past medical history, social history, family history, and review of systems are per Dr. River's separate note. Please refer to that. Of note, he has a 20 pack-year smoking history but has not smoked since the 1970s. PHYSICAL EXAM: Vital signs reviewed. He is afebrile, pulse 86, respirations 21. BP was as low as 70/50 earlier today but is currently at 90/50. He is satting 98% on 5 L OxyMask. Complete physical exam is per Dr. River's note. General: He is alert and oriented. Chest: Clear to auscultation. Heart: Regular rate, rhythm. Abdomen: He has clean, dry, intact incisions and a ELAINA drain with serosanguineous fluid. LABORATORIES: Reviewed. Hemoglobin 7.2 this morning down from 9 yesterday. Chest x-ray this morning shows stable right IJ central line, cardiomegaly with some left basilar atelectasis. ASSESSMENT AND RECOMMENDATIONS: 1. Acute hypoxic respiratory failure, on 5 L OxyMask. 2. Hypotension - due to blood loss. 3. Acute blood loss anemia. 4. Status post liver resection on November 22 for cholangiocarcinoma. 5. Coronary artery disease, status post right ventricular infarct in the past. 6. Bioprosthetic aortic valve. 7. Atrial fibrillation with rapid ventricular response. This 81-year-old man with multiple prior medical problems was admitted for elective segmentectomy for cholangiocarcinoma. Postoperative course has been complicated by atrial fibrillation with rapid ventricular response which is being managed primarily by Cardiology. Hypotension appears to be most likely due to his anemia. We are going to transfuse him 1 unit of packed red cells and have another unit available in house if needed. A followup hemoglobin is pending. With regards to his oxygenation, his chest x-ray just shows atelectasis, and I think he simply needs more pulmonary toilet. He is working on incentive spirometry as we speak, but once he is more hemodynamically stable, we should have Physical Therapy see him and work with him as well. He is on subcu heparin for DVT prophylaxis, and he is getting aspirin for his atrial fibrillation right now. Therapeutic anticoagulation is on hold until he is more stable from an anemia standpoint. GI prophylaxis is not indicated. CRITICAL CARE TIME: 40 minutes.
[2016-11-25] MEDS ORDERED: Heparin 5,000 Unit/mL Inj SUBQ SCH (16:30)
--- NOTE | 2016-11-25 18:50 | NUR ---
Hypotension/Blood tranfusion/activity Pt hypotensive in beginning of shift, responsive to two 250ml NS boluses. One unit RBCs given with good effect, no adverse reactions (see CCU flow sheet). Pt up with PT SBA to one person in room. Pt dizzy when sitting, but not when standing, pt states this is normal for him. His orthostatics were negative. Pt using urinal independently as well as turning in bed on his own.
[2016-11-26] VITALS (8 sets, daily range): BP systolic 98–122; BP diastolic 59–77; PULSE 65–97; RESP 20–24; O2SAT 93–97
[2016-11-26] MEDS ORDERED: Potassium Chloride Oral 20 mEq SR Tab(K 3 - 3.7 & Creat < 2) PO ONE (01:10)
[2016-11-26 05:06] LABS: BASOPHILS % (AUTO) 0.2 % (0-3); EOSINOPHILS % (AUTO) 1.8 % (0-5); MONOCYTES % (AUTO) 10.2 % (4-12); Mean Corpuscular Hemoglobin 26.8 pg (27.0-35.0); Mean Corpuscular Volume 86.3 fL (81-100); NEUTROPHILS % (AUTO) 79.1 % (40-74); Platelet Count 136 bil/L (150-400)
[2016-11-26] MEDS: 0.9% Sodium Chloride 1,000 ML IV SCH (05:09)
[2016-11-26 05:32] LABS: Magnesium 2.2 mg/dL (1.6-2.6); Phosphorus 1.7 mg/dL (2.5-4.9)
--- NOTE | 2016-11-26 05:57 | NUR ---
Constipation Pt alert and oriented x3. He denies any pain/discomfort. Temp max 37.5. SBP in low 100s/60s. Miralax, prune juice and Fleets enema given for constipation. Pt had xlarge bm per bsc. Pt tolerates transferring from bed to bsc with 1 person assist. He denies any significant dizziness. Per pt, he gets normally lightheaded even at home. He just takes his time when moving around. ELAINA output 10 cc for the this shift. ELAINA dressing 30% saturated with serous-sanginous drainage. Changed ELAINA dressing x1 tonight.
[2016-11-26] MEDS: Acyclovir 400 mg Tablet PO SCH ×2 (07:42→20:23)
[2016-11-26] MEDS: 0.9% Sodium Chloride 250 ML IV SCH (08:50)
--- NOTE | 2016-11-26 10:15 | DRSVH ---
PROCEDURE: X-RAY CHEST ONE VIEW, PORTABLE ([id number]) INDICATIONS: O2 needs TECHNIQUE: One view of the chest was acquired. COMPARISON: [facility], CR, XR CHEST 1VW (PORTABLE), 11/22/2016, 14:08. [facility], CR, XR CHEST 1VW (PORTABLE), 11/25/2016, 9:35. FINDINGS: Surgical changes and devices: Pacemaker, right sided central venous catheter are noted. There has bee n mild interval retraction of the right-sided central venous catheter. Lungs and pleura: Left basilar opacity is unchanged. Mild increased pulmonary vascularity is noted. Mediastinum: Mediastinal contours appear normal. Heart size is enlarged. Bones and chest wall: No suspicious bony lesions. Overlying soft tissues appear unremarkable. IMPRESSION: Mild interval retraction of right-sided central venous catheter. It is located overlying the proximalmost aspect of the SVC/subclavian junction. Unchanged appearance of left basal opacity an d increased pulmonary vascularity suggestive of edema. Dictated by: Janell Rios M.D. on 11/26/2016 at 10:11 Approved by: Janell Rios M.D. on 11/26/2016 at 10:13
--- NOTE | 2016-11-26 11:05 | PCM.PNCARD ---
Subjective Date of service November 26, 2016 Chief Complaint S/p surgery with afib Constitutional: Denies: Chills, Fever, Sweats ENT: Denies: Ear Discharge, Ear Pain Cardiovascular: Denies: Chest Pain, Edema, Irregular Heart Rate, SOB while laying flat Respiratory: Reports: Cough, Denies: Cough with bloody sputum, Shortness of Breath Gastrointestinal: Denies: Abdominal Pain, Blood in stool (red) Genitourinary: Denies: Hematuria Skin: Denies: Bruising Neurological: Denies: Confusion, Dizziness Endocrine: Reports: Blood Glucose Review Exam Vital Signs Vital Sign - Last Date Time Temp Pulse Resp B/P Pulse Ox O2 Delivery O2 Flow Rate FiO2 11/26/16 08:00 Supplement Oxygen 11/26/16 08:00 36.7 79 24 117/67 95 4.00 Intake and Output 11/25/16 11/25/16 11/26/16 Cumulative From/Thru 15:00 23:00 07:00 11/17/16 16:39 - 11/26/16 06:35 Intake Total 380 ml 1334 ml 1120 ml 90849 ml Output Total 700 ml 660 ml 7395 ml Balance 380 ml 634 ml 460 ml 4099 ml Intake Oral 480 ml 2655 ml IV Total 50 ml 1334 ml 640 ml 8509 ml Packed Cells 330 ml 330 ml Output Urine Total 675 ml 650 ml 5415 ml Drainage Total 25 ml 10 ml 1480 ml Estimated Blood Loss 500 ml # Bowel Movements 1 1 General: Pleasant Cooperative Skin: Warm & dry to touch Head: Normocephalic Eye: EOMS intact Chest: No rales or wheeze Cardiac: Regular rhythm Extremities: Warm Neurological: Alert & oriented Lab and Diagnostics Labs CBC Test 11/25/16 06:30 11/26/16 05:00 Reticulocyte Count,Calculated 1.7% (0.6-2.6) White Blood Count 8.7th/mm3 (3.8-10.1) Red Blood Count 3.21mil/mm3 (4.40-5.80) Hemoglobin 8.6g/dL (13.8-17.2) Hematocrit 27.7% (41.0-50.0) Mean Corpuscular Volume 86.3fL (81-100) Mean Corpuscular Hemoglobin 26.8pg (27.0-35.0) Mean Corpuscular Hemoglobin Concent 31.0% (32.0-37.0) Red Cell Distribution Width 15.5% (12.3-15.4) Platelet Count 136bil/L (150-400) Neutrophils (%) (Auto) 79.1% (40-74) Lymphocytes (%) (Auto) 8.2% (14-46) Monocytes (%) (Auto) 10.2% (4-12) Eosinophils (%) (Auto) 1.8% (0-5) Basophils (%) (Auto) 0.2% (0-3) CMP Test 11/23/16 04:00 11/24/16 16:50 11/26/16 05:00 Thyroid Stimulating Hormone (TSH) 1.660uIU/mL Total Creatine Kinase 143U/L Troponin T < 0.010ug/L Sodium Level 140mEq/L Potassium Level 3.7mEq/L Chloride Level 105mEq/L Carbon Dioxide Level 25mmol/L Blood Urea Nitrogen 16mg/dL Creatinine 0.82mg/dL Estimat Glomerular Filtration Rate 96mL/min Glucose Level 111mg/dL Calcium Level 7.6mg/dL Phosphorus Level 1.7mg/dL Magnesium Level 2.2mg/dL Total Bilirubin 1.7mg/dL Aspartate Amino Transf (AST/SGOT) 29U/L Alanine Aminotransferase (ALT/SGPT) 57U/L Alkaline Phosphatase 63U/L Total Protein 4.8g/dL Albumin 2.8g/dL Result Diagram: 11/26/16 0500 11/26/16 0500 Assessment & Plan Problems: (1) CAD (coronary artery disease) Qualifiers: Coronary Disease-Associated Artery/Lesion type: [place] artery [place] vs. transplanted heart: [place] heart Associated angina: without angina Qualified Code: I25.10 - Atherosclerotic heart disease of [place] coronary artery without angina pectoris Plan: He is improving since yesterday. He is feeling better. His afib has resolved. For now I would not commit to warfarin or NOAC since he continues to have decreasing H/H. If he has recurrent afib as inpatient or outpatient then anticoagulation can be discussed again. His EKG from [address]-T changes but these are chronic. There might be some changes but given his rapid afib and hx of CAD, he probably did have some minimal acute coronary insufficiency. He maybe transferred to [facility] and have a repeat CBC tomorrow morning. If they remain stable then he should be fine to go back home from my perspective. He is back on metoprolol and tolerating well. Status: Acute ICD Code: I25.10 (2) Right heart failure with reduced right ventricular function Plan: He is preload dependent which is causing his lightheadedness and dizziness when he stands up too quickly. This is improving but he does have chronic orthostatic lightheadedness. Discontinue IVFs. Consider another PRBC if H/H drops below 8.0 tomorrow am. I do not believe he has subacute CHF. He absolutely denies any orthopnea or PND. I would hold off on IV lasix for now. I hoping with ambulation his cough will improve. Status: Chronic ICD Code: I50.9 (3) Atrial fibrillation Qualifiers: Atrial fibrillation type: unspecified Qualified Code: I48.91 - Unspecified atrial fibrillation Plan: New onset but resolved. Probably a result stress from surgery. For now, hold anticoagulation. If he has recurret afib and if H/H is stable then reconsider anticoagulation. He is on amiodarone already for hx of Vtach. We have restarted his metoprolol and he is tolerating well. Status: Resolved ICD Code: I48.91 (4) Ventricular tachycardia Plan: On amiodarone and now metoprolol. Onset Date: 08/03/2014 Status: Chronic ICD Code: I47.2 (5) SSS (sick sinus syndrome) Plan: Pacemaker in situ. Status: Chronic ICD Code: I49.5 (6) History of aortic valve replacement with bioprosthetic valve Status: Chronic ICD Code: Z95.4 Pain Evaluation: Adequate Pain Control VTE Mechanical Devices: Intermittant Pneumatic CD Resuscitation Status: DNR/DNI:Do Not Resuscitate/Intubate Time spent 30 minutes Manolo Felix MD November 26, 2016 11:05
--- NOTE | 2016-11-26 11:25 | PCM.PNSURG ---
Subjective Visit Information: Reason for Visit Liver Cholangio Cancer Surgery/Surgery Date Post-Op Day # Date of Admission: November 22, 2016 at 16:12 Hospital Day # Subjective: received a unit of blood yesterday, had a BM yesterday; tolerating diet, ELAINA in place Objective Objective Laying flat in bed, awake Abd: incisions clean, L side ELAINA in place, slight drainage around ELAINA site, ELAINA -- > serosang Vital Sign- Last 8 Hours Date Time Temp Pulse Resp B/P Pulse Ox O2 Delivery O2 Flow Rate FiO2 11/26/16 08:00 Supplement Oxygen 11/26/16 08:00 36.7 79 24 117/67 95 OxyMask 4.00 11/26/16 05:20 97 11/26/16 04:48 37.4 93 22 122/77 93 Nasal Cannula 2.00 11/26/16 04:48 Supplement Oxygen Intake and Output- Last 8 Hour 11/26/16 Cumulative From/Thru 07:00 11/17/16 16:39 - 11/26/16 06:35 Intake Total 1120 ml 63599 ml Output Total 660 ml 7395 ml Balance 460 ml 4099 ml Intake Oral 480 ml 2655 ml IV Total 640 ml 8509 ml Packed Cells 330 ml Output Urine Total 650 ml 5415 ml Drainage Total 10 ml 1480 ml Estimated Blood Loss 500 ml # Bowel Movements 1 1 Result Diagram: 11/26/16 0500 11/26/16 0500 Assessment & Plan Impression s/p Laparoscopic L lateral liver segmentectomy R heart failure Back in sinus rhythm Aortic valve Problems: (1) CAD (coronary artery disease) Qualifiers: Coronary Disease-Associated Artery/Lesion type: [place] artery [place] vs. transplanted heart: [place] heart Associated angina: without angina Qualified Code: I25.10 - Atherosclerotic heart disease of [place] coronary artery without angina pectoris Status: Acute ICD Code: I25.10 (2) Right heart failure with reduced right ventricular function Status: Chronic ICD Code: I50.9 (3) Atrial fibrillation Qualifiers: Atrial fibrillation type: unspecified Qualified Code: I48.91 - Unspecified atrial fibrillation Status: Resolved ICD Code: I48.91 (4) Ventricular tachycardia Onset Date: 08/03/2014 Status: Chronic ICD Code: I47.2 (5) SSS (sick sinus syndrome) Status: Chronic ICD Code: I49.5 (6) History of aortic valve replacement with bioprosthetic valve Status: Chronic ICD Code: Z95.4 Plan Continue diet as tolerated Continue ELAINA drain Appreciate Cardiology and Pulmonary following Monitor Hct Resuscitation Status: DNR/DNI:Do Not Resuscitate/Intubate Brad Bueno MD November 26, 2016 11:25
[2016-11-27 00:13] VITALS: BP 106/64; PULSE 75; RESP 18; O2SAT 97
[2016-11-27 03:09] VITALS: BP 117/76; PULSE 63; O2SAT 96
[2016-11-27 05:14] VITALS: PULSE 72
[2016-11-27 05:38] LABS: BASOPHILS % (AUTO) 0.4 % (0-3); EOSINOPHILS % (AUTO) 3.5 % (0-5); MONOCYTES % (AUTO) 12.2 % (4-12); Mean Corpuscular Volume 87.3 fL (81-100); NEUTROPHILS % (AUTO) 72.9 % (40-74); Platelet Count 183 bil/L (150-400)
--- NOTE | 2016-11-27 05:59 | NUR ---
Respiratory / Tele Pt on RA early in the shift with SpO2 sats 95%, Pt on Oxymask at 3L while sleeping during the night with SpO2 sats 97-98%. Left sided abdominal ELAINA drain site dressing changed, with T-Sponges and new ABD dressing. No c/o chest pain, pressure or palpitations, Tele SR 60-70s with occ V and AV-Pacing, per [employer]. HS dose of Metoprolol 12.5 mg withheld related to low BP 98/64. VS stable and HR stable for the rest of the night.
[2016-11-27 08:00] VITALS: BP 97/70; PULSE 75; RESP 20; O2SAT 95
[2016-11-27 08:48] VITALS: PULSE 76
[2016-11-27] MEDS: Acyclovir 400 mg Tablet PO SCH (08:53)
--- NOTE | 2016-11-27 09:27 | PCM.PNSURG ---
Subjective Visit Information: Reason for Visit Liver Cholangio Cancer Surgery/Surgery Date Post-Op Day # Date of Admission: November 22, 2016 at 16:12 Hospital Day # Subjective: sitting up in chair, feeling better than yesterday, had a BM yesterday, off heparin drip, says he can stand up without being dizzy Objective Objective Awake up in chair, eating breakfast Abd: soft, ELAINA in place --> serosang, 10 cc recorded, slight ascitic drainage at ELAINA exit site Vital Sign- Last 8 Hours Date Time Temp Pulse Resp B/P Pulse Ox O2 Delivery O2 Flow Rate FiO2 11/27/16 08:48 76 11/27/16 05:14 72 11/27/16 03:09 63 117/76 96 OxyMask 3.00 Intake and Output- Last 8 Hour 11/27/16 Cumulative From/Thru 07:00 11/17/16 16:39 - 11/27/16 05:48 Intake Total 300 ml 53840 ml Output Total 375 ml 7770 ml Balance -75 ml 4024 ml Intake Oral 300 ml 2955 ml IV Total 8509 ml Packed Cells 330 ml Output Urine Total 375 ml 5790 ml Drainage Total 1480 ml Estimated Blood Loss 500 ml # Bowel Movements 1 Result Diagram: 11/27/16 0325 11/26/16 0500 Assessment & Plan Impression s/p laparoscopic liver L lateral segmentectomy and lysis of adhesions R heart failure Aortic valve Hct stable Problems: (1) CAD (coronary artery disease) Qualifiers: Coronary Disease-Associated Artery/Lesion type: [place] artery [place] vs. transplanted heart: [place] heart Associated angina: without angina Qualified Code: I25.10 - Atherosclerotic heart disease of [place] coronary artery without angina pectoris Status: Acute ICD Code: I25.10 (2) Right heart failure with reduced right ventricular function Status: Chronic ICD Code: I50.9 (3) Atrial fibrillation Qualifiers: Atrial fibrillation type: unspecified Qualified Code: I48.91 - Unspecified atrial fibrillation Status: Resolved ICD Code: I48.91 (4) Ventricular tachycardia Onset Date: 08/03/2014 Status: Chronic ICD Code: I47.2 (5) SSS (sick sinus syndrome) Status: Chronic ICD Code: I49.5 (6) History of aortic valve replacement with bioprosthetic valve Status: Chronic ICD Code: Z95.4 Plan Work with physical therapy Discharge home once cleared by Cardiology and Hospitalist Team Will keep the ELAINA drain in place for now Resuscitation Status: DNR/DNI:Do Not Resuscitate/Intubate Brad Bueno MD November 27, 2016 09:26
--- NOTE | 2016-11-27 10:30 | NUR ---
[facility] Signed
--- NOTE | 2016-11-27 12:07 | NUR ---
Social Work: Readiness for Discharge D: Pt is on day 5 of stay; surgery is leading the pt's care. EMR reviewed; pt with ELAINA drains in place. PT evaluation has recommended home health. OTOLARYNGOLOGY PHYSICIAN met with pt at bedside to discuss discharge planning, PT recommendations and assess for unmet needs. Pt states he lives at home iwth his in [place] and does not feel that he needs home health or meets the homebound criteria. Pt states his sons also assist and that he has good family support. Pt declined home health referral from MD and states his family will transport him home when ready. A: Pt who is I at baseline. P: Anticipate pt to discharge home with family when medically stable; pt declined HH referral. OTOLARYNGOLOGY PHYSICIAN to continue to follow if needs arise. SSUY Mendiola
[2016-11-27] MEDS: 0.9% Sodium Chloride 250 ML IV SCH (12:43)
[2016-11-27 13:26] VITALS: BP 106/64; PULSE 65; RESP 18; O2SAT 98
--- NOTE | 2016-11-27 13:57 | PCM.DISURG ---
Surgical Discharge Instruction Date of Service November 27, 2016 Dates of Hospitalization Date of Hospital Admission November 22, 2016 at 16:12 Providers Admitting Physician: Juan Anne MD Primary Care Physician: Jorge Xie MD Attending Physician: Juan Anne MD Discharge Diagnosis Discharge Diagnosis s/p laparoscopic L lat liver segmentectomy Diet Discharge Diet: No restrictions Activity Discharge Activity-General: Balance rest and activity, Activity as pain allows , Activity as energy allows Dressing and Incisional Care Dressing Care: Keep dressing clean, dry & intact, Allow Steri Stripes to fall off Hygiene: May shower Additional Instructions Discharge Instructions Keep ELAINA drain with routine drain care Increase metoprolol to 25 mg twice a day, hold lasix and HCTZ and potassium for now. OK to take other home meds. Follow Up Plan Follow-up Provider (F9): Juan Anne MD Follow-up appointment: Weeks (1-2) Call your provider for: Fever, Shortness of breath, Increasing abdominal pain, Vomiting, Discharge @ incision, pus discharge Brad Bueno MD November 27, 2016 13:57
--- NOTE | 2016-11-27 17:11 | NUR ---
D/C Home.. Pt has felt well and has minimal incisional discomfort, only requiring Tylenol for generalized pain. Pt had D/C orders written and was given written handout on ELAINA care and measuring and demonstrated a dressing change at the bedside with the pt showing adequate understanding. Sent home with ELAINA drain drsgs supplies and measuring cup. Instructed to record all output and document amts and take recordings to next office visit. D/C home accompanied by with his belongings.
--- NOTE | 2016-11-27 19:25 | PCM.DC.SUR ---
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 2. Atrial fibrillation 3. Right heart failure 4. Acute blood loss anemia Other chronic conditions: 1. Aortic valve stenosis status post aortic valve replacement 2. Osteoarthritis 3.. BPH 4. CAD 5. Mixed Hyperlipidemia 6. Unspecified essential Hypertension 7. Status post apical LA with ICD in place 8. Sleep apnea on CPAP 9. Restless leg syndrome 10. Chronic systolic heart failure 11. Right ventricular aneurysm Problems: Operation 1. Laparoscopic resection left lateral segmentectomy (segments 3/4). 2. Laparoscopic Lysis of Adhesions Brief History and Physical: The patient is a 81-year-old man who was found to have a mass in the lateral segment of his left hepatic lobe. A percutaneous biopsy showed an adenocarcinoma consistent with an upper GI source. He had a PET scan that showed no other evidence of disease. An upper endoscopy showed no evidence of a primary in his esophagus, stomach or duodenum. 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 Norman, and also preoperative anesthesia evaluation, it was elected to proceed with a laparoscopic resection of hepatic segments three and four (left lateral segmentectomy). He had had a previous open cholecystectomy many years ago through a right subcostal incision. Consultants: Cardiology Hospitalist Hospital Course: The patient was admitted and underwent the above-mentioned operation without complication. ELAINA had expected bilious output on his first several postsurgical days, this cleared by the third and fourth postsurgical day. Schaefer catheter was removed on the patient second postsurgical day, ambulation was encouraged. On the patient's third postsurgical day he went into atrial fibrillation and was anticoagulated. The following day he received a unit of blood. Atrial fibrillation converted spontaneously/with medications. Bowel function began returning by the patient's third and fourth postsurgical day, diet was initiated and advanced. The patient was stable for discharge on his fifth postsurgical day. Pathology: Pending Disposition: The patient was discharged to home on his fifth postsurgical day. Follow-up Plan: He will follow-up in the office with Dr. Edwige Anne in 1-2 weeks. Acyclovir (Acyclovir) 400 Mg Tablet 400 MG PO BID (Reported) Amiodarone (Amiodarone) 200 Mg Tablet 200 MG PO DAILY (Reported) Aspirin (Aspirin) 81 Mg Tablet 81 MG PO DAILY (Reported) Furosemide (Furosemide) 20 Mg Tab 20 MG PO DAILY (Reported) Hydrochlorothiazide (Hydrochlorothiazide) 12.5 Mg Tablet 12.5 MG PO DAILY ( Reported) Ibuprofen (Ibuprofen) 200 Mg Capsule 200 MG PO QID PRN PRN For Pain (Reported) Loperamide/Simethicone (Imodium Multi-Symptom Rel Cplt) 1 Each Tablet 2 EACH PO AFTER EACH LOOSE (Reported) Take 2 tablets orally with first loose stool, and one tablet 2 mg orally, after each next bowel movement, do not exceed 16 mg in 24 hours. Metoprolol Tartrate (Metoprolol Tartrate) 25 Mg Tablet 12.5 MG PO BID (Reported ) Nitroglycerin SL (Nitroglycerin SL) 0.4 Mg Tab.subl 0.4 MG SL Q5MIN PRN PRN For Chest Pain (Reported) Potassium Chloride (Potassium Chloride) 20 Meq Tab.er.prt 20 MEQ PO BID ( Reported) TAKE WITH FOOD Simvastatin (Simvastatin) 40 Mg Tablet 20 MG PO HS (Reported) copies to: Jorge Xie MD; Omari Norman MD; Fortunato Moran MD; Marie Angelo MD, Fred H PA-C November 27, 2016 19:25
== END 2016-11-27 15:41 | disposition home or self-care (01) | DRG 405 ==
LOC: SAS 06:57 → EDSTATUS 08:45 → CCU 16:12 → PCC 11-26 11:15
PROVIDERS: ADMIT Surgery; ATTEND Surgery
PROC: 0FT Hepatobiliary System and Pancreas, Resection (ICD-10-PCS; principal; 2016-11-22 08:45)
PROC: 30233N1 Transfusion of Nonautologous Red Blood Cells into Peripheral Vein, Percutaneous Approach (ICD-10-PCS; 2016-11-25)
DX: C22.1 Intrahepatic bile duct carcinoma (principal); J96.01 Acute respiratory failure with hypoxia; D62 Acute posthemorrhagic anemia; I50.22 Chronic systolic (congestive) heart failure; I47.2 Ventricular tachycardia; Z79.82 Long term (current) use of aspirin; I10 Essential (primary) hypertension; Z95.810 Presence of automatic (implantable) cardiac defibrillator; Z95.2 Presence of prosthetic heart valve; Z87.891 Personal history of nicotine dependence; I25.10 Atherosclerotic heart disease of native coronary artery without angina pectoris; I48.91 Unspecified atrial fibrillation; I95.89 Other hypotension

== ENCOUNTER 2017-02-05 12:01 | Inpatient (IN) | payer MEDICARE ==
[~2017-02-05] VITALS: Ht 182.9 cm; Wt 83.9 kg
[2017-02-05] VITALS (7 sets, daily range): BP systolic 107–132; BP diastolic 70–78; PULSE 73–99; RESP 16–20; O2SAT 95–99
[~2017-02-05 12:01] MED LIST changes: -ACYC400T2 PO; +CAPE500T PO; +CYCL1DRO BOTH_EYES; -CeFAZolin Inj 2 GM in IV Premix 1 EACH IV ONE; -HYDR12.55 PO; -Heparin 5,000 Unit/mL Inj SUBQ ONE; +IBUP200C PO
[2017-02-05 12:35] LABS: BASOPHILS % (AUTO) 0 % (0-3); EOSINOPHILS % (AUTO) 0 % (0-5); MONOCYTES % (AUTO) 2.7 % (4-12); Mean Corpuscular Hemoglobin 26.5 pg (27.0-35.0); Mean Corpuscular Volume 86.2 fL (81-100); NEUTROPHILS % (AUTO) 83.6 % (40-74); Platelet Count 86 bil/L (150-400)
--- NOTE | 2017-02-05 12:42 | ED.REPORT ---
HPI-Abd Pain M 40 and Over Date of Service Feb 05, 2017 ED Provider: Keily Yang MD Patient is a 81 year old male status post liver resection two months ago with a history of liver cancer, MD, CHF, hypertension and atrial fibrillation who presents to the ED via EMS complaining of right upper quadrant abdominal pain onset two days ago. Associated symptoms include epigastric abdominal swelling, diarrhea that has been slowly down, once episode of emesis this morning after eating a piece of toast and chills that started approximately 6 hours ago. He denies fever, urinary symptoms, body aches, headache or groin swelling. Patient states that he has been able to pass gas. The patient reports that he had not experienced any pain after his surgery until 2 days ago. Nursing Notes Stated Complaint: ABDOMINAL PAIN Chief Complaint: Male Abdominal Pain Nursing Notes Reviewed: Yes Allergies: Coded Allergies: lisinopril (Verified Allergy, Unknown, cough, 10/27/16) Patient states lisinopril makes him cough but he is currently taking lisinopril and denies having a cough Scheduled Amiodarone (Amiodarone) 200 Mg Tablet 200 MG PO DAILY Aspirin (Aspirin) 81 Mg Tablet 81 MG PO DAILY Capecitabine (Xeloda) 500 Mg Tablet 1,500 MG PO BID DYS1-14 Q21DYS 2 WKS ON 0NE WK OFF Cyclosporine (Restasis) 1 Each Droperette 1 EACH BOTH_EYES BID Furosemide (Furosemide) 20 Mg Tab 20 MG PO DAILY Loperamide/Simethicone (Imodium Multi-Symptom Rel Cplt) 1 Each Tablet 2 EACH PO AFTER EACH LOOSE Take 2 tablets orally with first loose stool, and one tablet 2 mg orally, after each next bowel movement, do not exceed 16 mg in 24 hours. Metoprolol Tartrate (Metoprolol Tartrate) 25 Mg Tablet 12.5 MG PO BID Potassium Chloride (Potassium Chloride) 20 Meq Tab.er.prt 20 MEQ PO BID TAKE WITH FOOD Simvastatin (Simvastatin) 40 Mg Tablet 20 MG PO HS Scheduled PRN Ibuprofen (Ibuprofen) 200 Mg Capsule 200 MG PO QID PRN PRN For Pain Nitroglycerin SL (Nitroglycerin SL) 0.4 Mg Tab.subl 0.4 MG SL Q5MIN PRN PRN For Chest Pain General Time Seen by MD: 12:41 Chief Complaint Abdominal pain Hx Obtained From: Patient Arrived By: Ambulance Sudden in Onset?: Yes Onset Occurred: 2 days ago Symptom Duration: Since onset Location: : RUQ Quality: Painful Severity: Current: Moderate Recent Healthcare: Recent doctor visit, Recent hospitalization Past Medical History Past Medical History Notes: ED visit 04/06/15 for AICD firing and CP, AICD interrogated and discharge was for tachydysrhythmia, patient's furosemide was discontinued, patient is advised to continue aspirin lactone and HCTZ Past Medical History Per old reports: Admit in 07/2014 for AICD firing from [facility] Coronary artery disease, with a history of non ST elevation MD in 2008 with balloon angioplasty and stenting of the LAD. 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 Dyslipidemia. Untreated sleep apnea. Uvulectomy. MD x2 with angioplasty Right ventricular aneurysm Reports: Cancer, Hyperlipidemia, Hypertension Past Surgical History Ablation of right ventricular apical ventral tachycardia 02/26/2015 Uvulectomy Aortic Valve Replacement - bioprosthetic liver resection November 2016 Reports: Cholecystectomy Reports: Pacemaker insertion Smoking History Former Smoker Social History Alcohol Use: "Social" Drug Use: Denies drug use Other Social History: , Local resident Ambulatory Status Cane Review of Systems Review of Systems Note: +abdominal swelling Constitutional: Reports: Chills, Denies: Fever Respiratory: Denies: Non-productive cough, Shortness of breath GI: Reports: Abdominal pain, Diarrhea, Nausea, Vomiting Male: Denies Dysuria, Denies Hematuria, Denies Scrotal swelling, Denies Testicular swelling, Denies Urinary frequency, Denies Urinary urgency Musculoskeletal: Denies: Myalgia Complete sys rev & neg: except as marked. Skin: Denies Itching, Denies Rash Neurologic: Denies: Headache Physical Exam Initial Vital Signs Vital Signs (First) Date Time Temp Pulse Resp B/P Pulse Ox O2 Delivery O2 Flow Rate FiO2 02/05/17 12:13 36.2 73 16 129/74 98 Room Air Initial VS: Reviewed, Vital signs normal General/Constitutional: Awake, Alert Respiratory / Chest: Atraumatic, Breath sounds NL, Breath sounds = bilat, No respiratory distress Cardiovascular: Heart rate NL, Regular rhythm, Heart sounds NL Bowel Sounds / Distention: Positive: Distention moderate ABDOMEN: decreased bowel sounds tense abdomen with rebound diffuse tenderness, worse in the right upper quadrant Back: Atraumatic, Non-tender Head / Eyes: Atraumatic, Normocephalic, PERRL, EOMI Skin: Atraumatic, Color NL, No rash, Warm, Dry Male Genitourinary: Atraumatic, Inspection NL, Penis NL, No mass Neurologic: Oriented X3, Speech NL, No motor deficits, No sensory deficits Lower Extremity / Pelvis / MS: Atraumatic, Full range of motion trace edema to bilateral lower extremities Psychiatric: Affect NL, Mood NL Interpretation & Diagnostics Lab Results Interpretation Result Diagram: 02/05/17 1210 02/05/17 1210 Test 02/05/17 12:10 02/05/17 12:35 02/05/17 15:16 White Blood Count 0.7th/mm3 (3.8-10.1) Red Blood Count 3.92mil/mm3 (4.40-5.80) Hemoglobin 10.4g/dL (13.8-17.2) Hematocrit 33.8% (41.0-50.0) Mean Corpuscular Volume 86.2fL (81-100) Mean Corpuscular Hemoglobin 26.5pg (27.0-35.0) Mean Corpuscular Hemoglobin Concent 30.8% (32.0-37.0) Red Cell Distribution Width 24.6% (12.3-15.4) Platelet Count 86bil/L (150-400) Neutrophils (%) (Auto) 83.6% (40-74) Lymphocytes (%) (Auto) 13.7% (14-46) Monocytes (%) (Auto) 2.7% (4-12) Eosinophils (%) (Auto) 0% (0-5) Basophils (%) (Auto) 0% (0-3) Hematology Comments Prothrombin Time 11.3sec (8.1-12.5) Prothromb Time International Ratio 1.05ratio Sodium Level 137mEq/L (134-144) Potassium Level 4.1mEq/L (3.5-5.2) Chloride Level 101mEq/L (97-108) Carbon Dioxide Level 21mmol/L (18-29) Blood Urea Nitrogen 29mg/dL (8-27) Creatinine 0.96mg/dL (0.76-1.27) Estimat Glomerular Filtration Rate 80mL/min (>59) Glucose Level 157mg/dL (60-99) Calcium Level 8.1mg/dL (8.5-10.1) Magnesium Level 1.8mg/dL (1.6-2.6) Total Bilirubin 2.8mg/dL (0.0-1.2) Aspartate Amino Transf (AST/SGOT) 27U/L (0-50) Alanine Aminotransferase (ALT/SGPT) 27U/L (0-44) Alkaline Phosphatase 56U/L (25-160) Troponin T < 0.010ug/L (0.0-0.011) Total Protein 5.3g/dL (6.4-8.4) Albumin 3.2g/dL (3.4-5.0) Lipase 27U/L (13-60) Lactic Acid Level 1.6mmol/L (0.4-2.0) ECG Interpretation ECG Interpretation: increased QTcs with sinus rhythm intraventricular conduction delay T waves in V2,V3 and V4 similar to previous EKG in November 2016 Time: 12:26 Normal ECG Interpretation: Normal rate (74) X-Ray Abdominal Interpretation IMPRESSION: 1. No bowel obstruction or perforation identified. 2. 3 cm left bladder stone as before. Dictated by: Ralf Pinto M.D. on 02/05/2017 at 13:27 Approved by: Ralf Pinto M.D. on 02/05/2017 at 13:32 Interpretation / Wet Read by: Interpret - Radiologist CT Abd / Pelvis Interpretation IMPRESSION: 1. New segmental wall thickening involving the mid small bowel, with associated segmental inflammatory fat stranding of the associated mesentery. Finding may represent localized infectious process, versus an unusual presentation of small bowel ischemia. 2. Status post left hepatectomy, with small postoperative fluid collection unchanged. Small perihepatic ascites has slightly increased in size. 3. Descending and sigmoid colon diverticulosis, without acute diverticulitis. 4. Incidental small right adrenal adenoma is unchanged. 5. 3.6 cm short segment abdominal aortic aneurysm is unchanged. 6. 2.9 cm dependent mobile lumbar stone is again noted. 7. Small bilateral fat-containing inguinal hernias as before. Dictated by: Ralf Pinto M.D. on 02/05/2017 at 14:38 Approved by: Ralf Pinto M.D. on 02/05/2017 at 14:57 Interpretation / Wet Read by: Interpret - Radiologist Re-Eval/Medical Decision Med Decision/Clinical Course The patient presents with abdominal pain and diarrhea started yesterday as well as vomiting. Evaluation here reveals enteritis which is likely due to the patient's neutropenia. I spoke with Dr. Kim at 1540 except the patient. I also spoke with Dr. Cash, the patient was given Granix as well as Zosyn and Flagyl to cover possible organisms. He has not been able to give us a stool sample. The patient has had stable vital signs while in the emergency department. Time of Eval: 15:07 Re-Evaluation/Progress Note: Discussed CT results and plan for admit. Patient understands and agrees to plan. All questions were addressed. Consultation #1: Referral / Consult Name: Nacho Cash MD Consulted With: On-call physician (oncology) Call Returned at: 14:49 Reinspector: Agrees with eval, Agrees with plan Note: Consult with Dr. Cash, who recommends the patient be tested for C.diff and PCR. Consultation #2: Consulted With: Hospitalist Reinspector: Agrees with eval, Agrees with plan, Accepts admit Counseled Regarding: Diagnosis, Lab results, Need for admission Discharge & Departure Primary Impression: Pancytopenia Additional Impressions: Enteritis Neutropenia Neutropenia type: unspecified Qualified Code: D70.9 - Neutropenia, unspecified Disposition: ADMITTED TO HOSPITAL Vital Signs - All Vital Signs Date Time Temp Pulse Resp B/P Pulse Ox O2 Delivery O2 Flow Rate FiO2 02/05/17 13:55 99 16 115/77 95 Room Air 02/05/17 12:13 36.2 73 16 129/74 98 Room Air )( All Prior VS Reviewed: Yes Condition: Stable Referrals: Jorge Xie MD (PCP) Fortunato Moran MD Attestation Portions of this note were transcribed by Jocelyn Elam. I, Dr. Yang personally performed the history, physical exam and medical decision-making; I reviewed and confirmed the accuracy of the information in the transcribed note. Signed by: Alba Tellez, 02/05/17 copies to: Jorge Xie MD; Fortunato Moran MD, Jena M MD Feb 05, 2017 12:42 Tiffany Elam Feb 05, 2017 12:44
[2017-02-05] MEDS ORDERED: Ondansetron 2 mg/mL 2 mL Inj IVPUSH PRN ×2 (12:55→15:45)
[2017-02-05] MEDS ORDERED: Iohexol 300 mg/mL 30 mL Inj PO ONE (12:55)
[2017-02-05 12:59] LABS: INR 1.05 ratio
[2017-02-05 13:21] LABS: Magnesium 1.8 mg/dL (1.6-2.6)
--- NOTE | 2017-02-05 13:34 | DRSVH ---
PROCEDURE: X-RAY ACUTE ABDOMINAL SERIES ([id number]) INDICATIONS: 81 year-old male with abdominal pain and distention. TECHNIQUE: One view chest and two views of the abdomen were acquired. COMPARISON: [facility], CT, CT CHEST ABD PELVIS WO CON, 01/02/2017, 9:47. [facility], CR, XR CHEST 1VW (PORTABLE), 11/26/2016, 4:15. [facility], CR, XR CHEST 1VW (PO RTABLE), 11/25/2016, 9:35. [facility], CR, XR CHEST 1VW (PORTABLE), 11/22/2016, 14:08. FINDINGS: Surgical changes and devices: Left chest wall dual chamber pacer/ICD is again noted. Patient is statu s post cardiac valve replacement. Chest: Lungs are clear. Mild cardiomegaly is unchanged. No pleural effusions. No pneumoperitoneum. Abdomen: Bowel gas pattern is normal. 3 cm left bladder stone is again noted. Visualized solid orga n contours appear normal. Bones: No suspicious bony lesions. There is lumbar spine disc degeneration. IMPRESSION: 1. No bowel obstruction or perforation identified. 2. 3 cm left bladder stone as before. Dictated by: Ralf Pinto M.D. on 02/05/2017 at 13:27 Approved by: Ralf Pinto M.D. on 02/05/2017 at 13:32
[2017-02-05] MEDS ORDERED: Piperacillin-Tazo 3.375 Gm Inj 4.5 GM in Dextrose 5% Minibag Plus 50 ML IV ONE (14:55)
[2017-02-05] MEDS ORDERED: metroNIDAZOLE Inj 500 MG in IV Premix 1 EACH IV ONE (14:55)
--- NOTE | 2017-02-05 14:59 | DRSVH ---
PROCEDURE: CT ABDOMEN AND PELVIS WITHOUT CONTRAST ([id number]) INDICATIONS: 81 year-old male with history of cholangiocarcinoma resection, with abdominal pain. TECHNIQUE: After the administration of oral contrast, 5 mm thick sections acquired from the diaphragms to the sy mphysis. 5 mm coronal and sagittal reformats were performed. For radiation dose reduction, the foll owing was used: automated exposure control, adjustment of mA and/or kV according to patient size. COMPARISON: [facility], CT, CT CHEST ABD PELVIS WO CON, 01/02/2017, 9:47. [facility], NM, PET WHOLE BODY (MELANOMA), 10/14/2016, 13:32. [facility], CT, CT ABD W&WO C ON PELVIS W CON, 08/09/2016, 13:08. FINDINGS: Image quality: Excellent. ABDOMEN: Lung bases: Lung bases are clear. Mild cardiomegaly is unchanged. Pacemaker wires are present. There is small retrocardiac hiatal hernia. Solid organs: Patient is status post left hepatectomy as before, with small postoperative fluid colle ction at the surgical site unchanged. Several right hepatic lobe lobulated cysts are again noted. Gal lbladder is surgically absent. Pancreas is normal in size. Small right adrenal nodule is unchanged, with noncontrast density measurement of -3 Hounsfield units, diagnostic for benign adenoma. Both kid neys are normal in size, without hydronephrosis or nephrolithiasis. Peritoneum and bowel: Bowel loops demonstrate normal overall caliber. Several mid small bowel loops in the right lower quadrant now demonstrate mild wall thickening, with associated segmental mesenter ic edema. There is descending and sigmoid colon diverticulosis. Small perihepatic ascites has slightl y increased. No free air. Nodes and vessels: No retroperitoneal or mesenteric adenopathy by size criteria. On axial image 21, 2 previously described prominent gastrohepatic ligament lymph nodes have decreased in sizes. There is moderate aortoiliac atherosclerosis, with 3.6 cm short segment abdominal aortic aneurysm unchanged. Inferior vena cava appears normal in morphology. Miscellaneous: No ventral hernias. PELVIS: Genitourinary: Bladder wall thickness is normal. 2.9 cm irregular dependent mobile bladder stone is again noted. Prostate gland is normal in size. Miscellaneous: Small bilateral fat-containing inguinal hernias are present. Right inguinal surgical c lips are again noted. Bones: No suspicious bony lesions. No vertebral body compression fractures. IMPRESSION: 1. New segmental wall thickening involving the mid small bowel, with associated segmental inflammator y fat stranding of the associated mesentery. Finding may represent localized infectious process, vers us an unusual presentation of small bowel ischemia. 2. Status post left hepatectomy, with small postoperative fluid collection unchanged. Small perihepat ic ascites has slightly increased in size. 3. Descending and sigmoid colon diverticulosis, without acute diverticulitis. 4. Incidental small right adrenal adenoma is unchanged. 5. 3.6 cm short segment abdominal aortic aneurysm is unchanged. 6. 2.9 cm dependent mobile lumbar stone is again noted. 7. Small bilateral fat-containing inguinal hernias as before. Dictated by: Ralf Pinto M.D. on 02/05/2017 at 14:38 Approved by: Ralf Pinto M.D. on 02/05/2017 at 14:57
--- NOTE | 2017-02-05 15:44 | PCM.HPMED ---
Subjective Date of Service Feb 05, 2017 Primary Provider: Admitting Physician: Eloina Cevallos DO Primary Care Physician: Jorge Xie MD Attending Physician: Eloina Cevallos DO Chief Complaint: RUQ abdominal pain History of Present Illness: 81-year-old male with recent history of left lobe liver mass identified as cholangiocarcinoma s/p lobe resection undergoing treatment with capecitabine, history of 2 myocardial infarctions, aortic stenosis s/p replacement with bioprosthetic valve, systolic heart failure with ejection fraction of 40%, and ventricular tachycardia/P dual-chamber AICD placement on long-term amiodarone presents to emergency department today due to 2 days of increasing abdominal pain with associated weakness. Patient states that the pain started upon awakening yesterday and he has been unable to move without extreme exertion between his bed to the car. Patient also endorses fever, chills, nausea with 1 bout of emesis, and associated dizziness but denies diarrhea, chest pain, shortness of breath, changes in mental status, or anorexia. Emergency room patient was given Zosyn and Flagyl and [address] of the abdomen and pelvis showed no segmental wall thickening of the mid small bowel suspicious for infection but differential also includes small bowel ischemia. There are numerous findings on the CT although the other financing to be chronic and unchanged. Patient was also found to be pancytopenic with a neutrophil count of approximately 600. Review of Systems: Complete review of systems performed; pertinent positives and negatives per history of present illness, all other systems reviewed and are negative Allergies Coded Allergies: lisinopril (Verified Adverse Reaction, Unknown, cough, 02/05/17) Home Medications Amiodarone (Amiodarone) 200 Mg Tablet 200 MG PO DAILY Aspirin (Aspirin) 81 Mg Tablet 81 MG PO DAILY Capecitabine (Xeloda) 500 Mg Tablet 1,500 MG PO BID DYS1-14 Q21DYS 2 WKS ON 0NE WK OFF Cyclosporine (Restasis) 1 Each Droperette 1 EACH BOTH_EYES BID Furosemide (Furosemide) 20 Mg Tab 20 MG PO DAILY Loperamide/Simethicone (Imodium Multi-Symptom Rel Cplt) Metoprolol Tartrate (Metoprolol Tartrate) 25 Mg Tablet 12.5 MG PO BID Potassium Chloride (Potassium Chloride) 20 Meq Tab.er.prt 20 MEQ PO BID Simvastatin (Simvastatin) 40 Mg Tablet 20 MG PO HS Ibuprofen (Ibuprofen) 200 Mg Capsule 200 MG PO QID PRN PRN For Pain Nitroglycerin SL (Nitroglycerin SL) 0.4 Mg Tab.subl 0.4 MG SL Q5MIN PRN PRN For Chest Pain PMH Admit in 07/2014 for AICD firing from [facility] Coronary artery disease, with a history of non ST elevation [place] in 2008 with balloon angioplasty and stenting of the LAD. 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 Dyslipidemia. Untreated sleep apnea. Uvulectomy. [place] x2 with angioplasty Right ventricular aneurysm Reports: Cancer, Hyperlipidemia, Hypertension Surgical History Ablation of right ventricular apical ventral tachycardia 02/26/2015 Uvulectomy Aortic Valve Replacement - bioprosthetic liver resection November 2016 Reports: Cholecystectomy Reports: Pacemaker insertion Family History Father at 79 of COPD Mother at 85 but no cause reported. Social History Hx Alcohol Use: Yes Hx Substance Use: No Hx Tobacco Use: Yes (quit 19 yrs ago) Smoking Status: Former Smoker Living Arrangement: with Family Exam Vital Signs Vital Sign - Last Date Time Temp Pulse Resp B/P Pulse Ox O2 Delivery O2 Flow Rate FiO2 02/05/17 13:55 99 16 115/77 95 Room Air 02/05/17 12:13 36.2 Exam General: Age-appropriate male who appears mildly toxic HEENT: PERRLA, EOMI, nonicteric, membranes moist; JVD on exam Lymph: No lymphadenopathy Cardio: Regular rate and rhythm no murmurs rubs or gallops Respiratory: CTA bilaterally, no wheezes, no crackles Abdomen: Belly is distended, firm, very warm, extremely tender to palpation and positive for rebound; this was discussed with my attending Extremities: No edema, sensation intact Psych: Appropriate mood and affect Neuro: CN II through XII grossly intact, sensation intact throughout; tremor noted on exam Skin: No rash Lab and Diagnostics Result Diagram: 02/05/17 1210 02/05/17 1210 X-Rays, CTs and MRIs CT abdomen/pelvis 1. New segmental wall thickening involving the mid small bowel, with associated segmental inflammatory fat stranding of the associated mesentery. Finding may represent localized infectious process, versus an unusual presentation of small bowel ischemia. 2. Status post left hepatectomy, with small postoperative fluid collection unchanged. Small perihepatic ascites has slightly increased in size 3. Descending and sigmoid colon diverticulosis, without acute diverticulitis. 4. Incidental small right adrenal adenoma is unchanged 5. 3.6 cm short segment abdominal aortic aneurysm is unchanged. 6. 2.9 cm dependent mobile lumbar stone is again noted 7. Small bilateral fat-containing inguinal hernias as before. Dictated by: Ralf Pinto M.D. 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 Severe abdominal pain in the setting of neutropenia; present on admission; ongoing -Patient presents with a abdominal pain with severe palpatory tenderness and pancytopenia; small bowel edema concerning for infection versus ischemia -Neutrophil count around 600 -Patient does not have recorded fever but is hot on exam -Blood cultures taken -Pro calcitonin ordered -Start on meropenem -Lactic acid initially normal; repeating -Contacted trauma surgeon online advertising analyst about concern for acute abdomen -Consulted GI also for possible infectious enteritis -Patient has heart failure we will gently resuscitated with normal saline -Tele -Dilaudid for pain Pancytopenia secondary to ongoing capecitabine use; is on admission; ongoing -Patient receiving medication for ongoing cholangiocarcinoma treatment -Consult heme in a.m. (Dr. Stevens) -Neutropenia precautions -Held night dose of capecitabine Chronic systolic heart failure; present admission; ongoing -Last echo was in July and showed ejection fraction of 40-45% -Continue home medications as there is no evidence of end organ damage due to heart failure -Do not see ARB; patient allergic to lisinopril -One dose of IV lasix tonight --IV metoprolol was given --Pt is placed on tele Hyperglycemia; present admission; ongoing -Blood glucose on presentation was 157 -Last A1c checked in our hospitals in 2011 and was normal -A1c ordered -NPO diet -We will monitor for need for insulin Tachycardia with AICD pacer-continue amiodarone and metoprolol Hyperlipidemia-hold simvastatin CAD-nitroglycerin sublingual and aspirin Disposition: Patient is being admitted to inpatient status with expected length of stay greater than two midnights due to to severity of presentation, duration of treatment, and risks of adverse events disposition Full code, ADM Pain Evaluation: Adequate Pain Control Resuscitation Status: CPR: Attempt Resuscitation Pain Evaluation: Adequate Pain Control Resuscitation Status: CPR: Attempt Resuscitation Time spent 45 min Attending Statement The patient was seen and examined together with Dr. Loo on 02/06/17 and I agree with the history, exam and plan as NOTED above Jose Manuel Loo DO Feb 05, 2017 15:44 Eloina Cevallos DO Feb 05, 2017 21:55
[2017-02-05] MEDS ORDERED: Polyethylene Glycol (PEG) 17 Gm Powder PO PRN (15:45)
[2017-02-05] MEDS ORDERED: 0.9% Sodium Chloride 500 ML IV ONE (15:45)
[2017-02-05] MEDS ORDERED: Alum-Mag Hydrox-Simeth 30 mL Suspension PO PRN (15:45)
[2017-02-05 15:49] LABS: APPEARANCE,URINE CLEAR (CLEAR,HAZY); COLOR,URINE YELLOW (YELLOW); PH,URINE 5.5 (5.0-8.0)
[2017-02-05 15:50] LABS: OCCULT BLOOD,URINE NEGATIVE (NEGATIVE); UROBILINOGEN,URINE NORMAL (NORMAL)
--- NOTE | 2017-02-05 17:08 | NUR ---
Admit patient admitted from ER for enteritis/neutropenia. Patient arrives to floor alert, oriented but having chills and low grade fever. Patient "states has had diarrhea x 3 days last stool this am, inability to maintain adequate oral intake. Admission completed and report given to receiving nurse. Patient instructed not to get up alone as is very weak and agrees to calling staff for help.
[2017-02-05] MEDS: MeTOProlol 1 mg/mL 5 mL Inj IVPUSH SCH ×2 (17:42→23:30)
[2017-02-05] MEDS: Furosemide 10 mg/mL 2 mL Inj IVPUSH SCH (17:45)
[2017-02-05] MEDS ORDERED: HYDROmorphone 1 mg/mL Inj IVPUSH PRN (18:55)
--- NOTE | 2017-02-05 19:15 | NUR ---
Neutropenic Precaution/Rule out C. diff./Weakness Pt. is on a neutropenic precaution due to very low WBC count. Pt. is also on C. Diff precaution to rule out C. Diff but Pt. has had no BM this shift. Pt. is also NPO. Pt. has general weakness and uses FWW with SBA to stand and use the urinal. Pt. does c/o of abdominal pain and has PRN morphine IV push. Medication reconciliation not done because Pt. states not being able to recall his medications.
--- NOTE | 2017-02-05 19:18 | NUR ---
MED REC NOT DONE YET; day shift rn reported pt couldn't remember his home meds and asked to bring in list. Addendum: 02/06/17 at 0441 by SHERRI VALLEJO RN pt stated would bring in his meds list in the morning.
[2017-02-05] MEDS: Meropenem Inj 1,000 MG in 0.9% Sodium Chloride 100 ML IV SCH (23:50)
[2017-02-06] VITALS (9 sets, daily range): BP systolic 92–112; BP diastolic 58–81; PULSE 60–82; RESP 16–20; O2SAT 95–97
--- NOTE | 2017-02-06 00:35 | PCM.CONSUR ---
Subjective History of Present Illness Mr. Goldsmith is a 81 year old male with multiple medical comorbidities who is s/p laparoscopic left lateral segmentectomy for intrahepatic cholangiocarcinoma on (pT2b, negative margins, not evidence of metastatic disease on PET) now undergoing adjuvant chemotherapy who presents with severe abdominal pain, nausea , vomiting, and diarrhea. The patient reports he has been convalescing appropriately at home following his operation 2 months ago. He recently received cycle 2 of his adjuvant Xeloda and gemcitabine, which he has been tolerating with fairly mild GI side effects. It is in this context that 2 days ago he developed watery, non-bloody diarrhea in association with some nausea. Yesterday, he developed severe, sharp, lower abdominal pain, rated 10/10 in severity. He has since vomited several times and become quite fatigued and tremulous/shaky. He has been sleeping more than usual, avoiding PO intake, and has experienced subjective fevers as well as rigors. He has attempted to stay hydrated but believes he is urinating less than normal. With further questioning, the patient reports he has never experienced similar abdominal pain in the past. He says his abdomen is firm, bloated, and tender even to light touch. Of note, the patient states he ate dinner at a restaurant the night before his symptoms started, and another member of his dinner republican is currently in the hospital with some sort of GI condition, the details of which are unclear. He denies any other sick contacts, recent travel, or having eaten unusual foods. Lastly, he states he is not experiencing any worrisome shortness of breath or chest pain at this time. In the emergency department, the patient was found to have a WBC of 0.7. He does not have a lactic acidosis and is hemodynamically normal. He has been given zosyn, metronidazole, and a dose of filgrastim. Reason for Consultation Peritonitis Allergy Allergies: Coded Allergies: lisinopril (Verified Adverse Reaction, Unknown, cough, 02/05/17) Medications Blood Thinners: Aspirin Hypertension Medication: Yes Home Meds Incl Beta Blockers: Yes Amiodarone (Amiodarone) 200 Mg Tablet 200 MG PO DAILY (Reported) Aspirin (Aspirin) 81 Mg Tablet 81 MG PO DAILY (Reported) Capecitabine (Xeloda) 500 Mg Tablet 1,500 MG PO BID DYS1-14 Q21DYS (Reported) 2 WKS ON 0NE WK OFF Cyclosporine (Restasis) 1 Each Droperette 1 EACH BOTH_EYES BID (Reported) Furosemide (Furosemide) 20 Mg Tab 20 MG PO DAILY (Reported) Ibuprofen (Ibuprofen) 200 Mg Capsule 200 MG PO QID PRN PRN For Pain (Reported) Loperamide/Simethicone (Imodium Multi-Symptom Rel Cplt) 1 Each Tablet 2 EACH PO AFTER EACH LOOSE (Reported) Take 2 tablets orally with first loose stool, and one tablet 2 mg orally, after each next bowel movement, do not exceed 16 mg in 24 hours. Metoprolol Tartrate (Metoprolol Tartrate) 25 Mg Tablet 12.5 MG PO BID (Reported ) Nitroglycerin SL (Nitroglycerin SL) 0.4 Mg Tab.subl 0.4 MG SL Q5MIN PRN PRN For Chest Pain (Reported) Potassium Chloride (Potassium Chloride) 20 Meq Tab.er.prt 20 MEQ PO BID ( Reported) TAKE WITH FOOD Simvastatin (Simvastatin) 40 Mg Tablet 20 MG PO HS (Reported) Past Surgical History Surgeries: Yes (Laparoscopic left lateral segmentectomy 11/22/16, remote open cholecystectomy, appendectomy in 1970, coronary stents, AICD, ablation of focus of ventricular tachycardia, AVR, uvulectomy ) Patient/Family Past Surgical: Positive for:: Accept Blood Products?, Blood Transfusions, Denies:: Anesthesia Reactions, Blood Transfuse Reaction, Malignant Hyperthermia Social History Hx Alcohol Use: Yes (ocassionally) Hx Substance Use: No Hx Tobacco Use: Yes (quit 19 yrs ago) PMH HEENT History History of ENT Problems?: Yes HEENT History: Positive for:: Cataracts Hearing Problem Denies:: Abnormal Airway Difficult Intubation Dysphagia Glaucoma Sinus Problem TMJ Cardiovascular History History of Heart Problems?: Yes Cardiovascular History: Positive for:: AICD (NEW 10/2015) Cardiac Surgery (AICD, ) Chest Pain (in past ) Congestive Heart Failure Heart Murmur Hypertension Pacemaker (AICD 2014) Valvular Heart Disease (echo 07/2016) Denies:: Edema Irregular Heartbeat Rheumatic Fever Thrombophlebitis Respiratory History of Respiratory Problem: No Respiratory History: Denies:: Asthma COPD Chest Surgery Dyspnea Emphysema Hemoptysis Oxygen Administration Pneumonia Tuberculosis Use of C-PAP Machine Other Resp Pertinent History: history sleep apnea denies any other resp issues Neurological History Hx Neurologic Problems?: No Neurological History: Denies:: Alzheimer's Disease CVA Dementia Dizziness Headaches Multiple Sclerosis Parkinson's Disease Seizures Gastrointestinal History HX of GI Problems?: Yes Gastrointestinal History: Positive for:: Diverticulitis (current diverticulosis) Denies:: Cirrhosis Gastroesphageal Reflux Gastrointestinal Bleeding Heartburn Hepatitis Hiatal Hernia Rectal Bleeding Other GI Pertinent History: gallbladder removed liver resection in November 2016 Genitourinary History Hx of Gu Problems?: No Genitourinary History: Denies: HX of Hemodialysis Kidney Stones Urinary Tract Infection Female/Male History Reproductive History Male: Denies: Prostate Problems Scrotal Mass Skin History Skin History: Positive for:: History Skin Disorders? (Melanoma to R lower back , removed) Denies:: Pressure Ulcers Other Skin Pertinent History: patient has scabs noted to left brnuo, bilat knee callouses with dry skin, scattered bruises on arms noted. Musculoskeletal History Hx Musculoskeletal Problems?: Yes Musculoskeletal History: Denies:: Back Injury Joint Replacement Musculoskeletal Trauma Systemic Lupus Psycho Social History Hx of Psycho/Social Problems?: Yes Psycho Social History: Positive for:: Anxiety Denies:: Bipolar Disorder Hx Depression Suicide Attempt Other History Hx Any Other Health Problems?: Yes Other History: Positive for:: Cancer (liver cancer, melanoma right back removed) Hospitalization (liver cancer surgery) Denies:: Endocrine Disease Thyroid Disease Diabetes: No Other Pertinent History: patient also had uvulectomy Social History Hx Alcohol Use: Yes (ocassionally)Hx Substance Use: NoHx Tobacco Use: Yes ( quit 19 yrs ago) Smoking Status: Former Smoker Living Arrangement: with Family Objective Exam Vital Signs & I/O Vital Sign- Last 8 Hours Date Time Temp Pulse Resp B/P Pulse Ox O2 Delivery O2 Flow Rate FiO2 02/06/17 00:26 37.0 75 16 92/58 96 Room Air 02/05/17 20:54 36.8 97 16 107/70 96 Room Air 02/05/17 20:30 38.8 02/05/17 20:00 92 02/05/17 18:02 83 02/05/17 17:03 37.4 99 20 132/76 97 Room Air Intake and Output- Last 8 Hour 02/06/17 Cumulative From/Thru 07:00 02/05/17 12:13 - 02/05/17 18:40 Intake Total 100 ml Output Total 505 ml Balance -405 ml Intake Oral 0 ml IV Total 100 ml Output Urine Total 505 ml # Voids 1 # Bowel Movements 0 Lab & Micro Results Laboratory Tests Test 02/05/17 12:10 02/05/17 12:35 02/05/17 15:16 02/05/17 15:48 White Blood Count 0.7th/mm3 (3.8-10.1) Red Blood Count 3.92mil/mm3 (4.40-5.80) Hemoglobin 10.4g/dL (13.8-17.2) Hematocrit 33.8% (41.0-50.0) Mean Corpuscular Volume 86.2fL (81-100) Mean Corpuscular Hemoglobin 26.5pg (27.0-35.0) Mean Corpuscular Hemoglobin Concent 30.8% (32.0-37.0) Red Cell Distribution Width 24.6% (12.3-15.4) Platelet Count 86bil/L (150-400) Neutrophils (%) (Auto) 83.6% (40-74) Lymphocytes (%) (Auto) 13.7% (14-46) Monocytes (%) (Auto) 2.7% (4-12) Eosinophils (%) (Auto) 0% (0-5) Basophils (%) (Auto) 0% (0-3) Hematology Comments Prothrombin Time 11.3sec (8.1-12.5) Prothromb Time International Ratio 1.05ratio Sodium Level 137mEq/L (134-144) Potassium Level 4.1mEq/L (3.5-5.2) Chloride Level 101mEq/L (97-108) Carbon Dioxide Level 21mmol/L (18-29) Blood Urea Nitrogen 29mg/dL (8-27) Creatinine 0.96mg/dL (0.76-1.27) Estimat Glomerular Filtration Rate 80mL/min (>59) Glucose Level 157mg/dL (60-99) Calcium Level 8.1mg/dL (8.5-10.1) Magnesium Level 1.8mg/dL (1.6-2.6) Total Bilirubin 2.8mg/dL (0.0-1.2) Aspartate Amino Transf (AST/SGOT) 27U/L (0-50) Alanine Aminotransferase (ALT/SGPT) 27U/L (0-44) Alkaline Phosphatase 56U/L (25-160) Troponin T < 0.010ug/L (0.0-0.011) Pro-B-Type Natriuretic Peptide 1443pg/mL (0-486) Total Protein 5.3g/dL (6.4-8.4) Albumin 3.2g/dL (3.4-5.0) Lipase 27U/L (13-60) Lactic Acid Level 1.6mmol/L (0.4-2.0) Urine Color Yellow (YELLOW) Urine Appearance Clear (CLEAR,HAZY) Urine pH 5.5 (5.0-8.0) Urine Specific [place] 1.030 (1.003-1.035) Urine Protein Tracemg/dL (NEG,TRACE) Urine Glucose (UA) Negativemg/dL (NEGATIVE) Urine Ketones Tracemg/dL (NEGATIVE) Urine Occult Blood Negative (NEGATIVE) Urine Nitrite Negative (NEGATIVE) Urine Bilirubin Negative (NEGATIVE) Urine Urobilinogen Normalmg/dL (NORMAL) Urine Leukocyte Esterase Negative (NEGATIVE) Urine RBC 0-2/hpf (0-2) Urine WBC 0-5/hpf (0-5) Urine Epithelial Cells Few/hpf (NONE-MOD) Urine Crystals None seen (NONE SEEN) Urine Bacteria Few/hpf (NONE-FEW) Urine Hyaline Casts None/lpf (NONE) Urine Granular Casts None seen (NONE SEEN) Urine Waxy Casts None seen (NONE SEEN) Urine Red Blood Cell Casts None seen (NONE SEEN) Urine White Blood Cell Casts None seen (NONE SEEN) Urine Mucus Present (None Seen) Urine Trichomonas None seen (NONE SEEN) Urine Yeast None (NONE SEEN) Urinalysis Comment None Urine Culture Reflexed Not indicated Hold Urine Received (Received) Test 02/05/17 22:53 Lactic Acid Level 1.6mmol/L (0.4-2.0) Microbiology 02/05/17 Blood Culture, Received Pending Result Diagram: 02/05/17 1210 02/05/17 1210 Review of Systems: Constitutional: Negative, except as otherwise mentioned in the history above. Ophthalmologic: Negative, except as otherwise mentioned in the history above. Cardiovascular: Negative, except as otherwise mentioned in the history above. Respiratory: Negative, except as otherwise mentioned in the history above. Gastrointestinal: Negative, except as otherwise mentioned in the history above. Genitourinary: Negative, except as otherwise mentioned in the history above. Musculoskeletal: Negative, except as otherwise mentioned in the history above. Neurological: Negative, except as otherwise mentioned in the history above. Psychiatric: Negative, except as otherwise mentioned in the history above. Hematologic/Lymphatic: Negative, except as otherwise mentioned in the history above. Allergic/Immunologic: Negative, except as otherwise mentioned in the history above. Additional Information CT A/P: "Patient is status post left hepatectomy as before, with small postoperative fluid collection at the surgical site unchanged. Several right hepatic lobe lobulated cysts are again noted. Gallbladder is surgically absent. Pancreas is normal in size. Small right adrenal nodule is unchanged, with noncontrast density measurement of -3 Hounsfield units, diagnostic for benign adenoma. Both kidneys are normal in size, without hydronephrosis or nephrolithiasis. Bowel loops demonstrate normal overall caliber. Several mid small bowel loops in the right lower quadrant now demonstrate mild wall thickening, with associated segmental mesenteric edema. There is descending and sigmoid colon diverticulosis. Small perihepatic ascites has slightly increased. No free air." H&P Surgical Exam Exam General: Alert, Cooperative, Mild Distress, Other (Appears tremulous. ) HEENT: EOMI Neck: Within normal limits & unremarkable Respiratory: Clear to Auscultation Cardiac: Other (Regular rate, paced. Systolic ejection murmur appreciated. No rubs or gallops.) Abdomen: Other (Diffusely tender to percussion in all 4 quadrants and exquisitely tender to palpation, worst in the RLQ. His abdomen is rigid and mildly distended. His has voluntary guarding and rebound tenderness worse than tenderness to palpation. There are severe well healed laparoscopic trocar site , an old well healed RUQ subcostal incision, and a well healed pfannenstiel incision. No appreciable masses, hernia, or organomegaly. ) Musculoskeletal: No pitting edema. Assessment & Plan Assessment This is a multiply comorbid 81M now 2 months s/p laparoscopic left lateral segmentectomy for intrahepatic cholangiocarcinoma undergoing adjuvant chemotherapy and presents with peritonitis in the setting of neutropenia. His CT scan demonstrates several thickened loops of small bowel and associated mesenteric edema, scant increase in free fluid, and no evidence of microperforation. There is a caliber change in the small bowel which may be suggestive of a partial SBO. However, mesenteric ischemia, neutropenic enterocolitis, or other infectious etiology is a possibility. Though he is peritonitic, he is currently hemodynamically stable and fairly comfortable. An operation could carry grave consequences given his neutropenia and therefore we will not proceed to the operating room unless he demonstrates free air on imaging. Plan: - Patient should remain NPO - Agree with broad spectrum antibiosis with meropenem - Trend labs - Serial abdominal exams - Q12 abdominal series to eval for free air - A contrasted CT scan would provide additional information - Appreciate GI recs regarding infectious workup - Appreciate ongoing care of primary medicine team - Please do not hesitate to call with questions or concerns Resuscitation Status: CPR: Attempt Resuscitation Bud Castañeda MD Feb 06, 2017 00:35
--- NOTE | 2017-02-06 01:11 | CONS ---
[address] [address] CONSULTATION REPORT PATIENT: MARGARETH LOCKETT : 1935 MR#: [id number] ADMIT: 02/05/2017 JOB ID: [id number] DATE OF SERVICE: 02/05/2017 REASON FOR CONSULTATION: Fevers, chills and abdominal pain. HISTORY OF PRESENT ILLNESS: A 81-year-old male with a history of cholangiocarcinoma, status post left lobe resection of the liver two months ago, currently undergoing encapsidation, history of myocardial infarction x2, aortic stenosis status post replacement with bicuspid valve, CHF with an EF 40%, ventricular tachycardia, dual pacemaker AICD placement on amiodarone, sleep apnea, who presents for consultation for abdominal pain, diarrhea, fevers and chills. The patient states that he was doing well after his liver resection two months ago and 2-3 days ago he developed diarrhea, nonbloody, 4-5 times per day. If the patient eats nothing by mouth, it is unknown whether his diarrhea continued. The patient was feeding his birds and then started having abdominal pain for the past one day, /10, sharp, constant, diffuse. The patient states he had an upper endoscopy in the past with unknown results and never had a colonoscopy. Denies family history of colon cancer, inflammatory bowel disease, or celiac disease. The patient states he has been having fevers and chills at home. The patient denies rectal bleeding, nausea, vomiting, hematemesis, or unintentional weight loss currently. PAST MEDICAL HISTORY: As stated above. PAST SURGERIES: As stated above including cholecystectomy. ALLERGIES: LISINOPRIL. HOME MEDICATIONS: Amiodarone, aspirin, Xeloda, Restasis, Lasix, Imodium, metoprolol, potassium, simvastatin, ibuprofen, sublingual nitroglycerin. SOCIAL HISTORY: He does drink alcohol. No IV drug use. He was a smoker, quit 19 years ago. FAMILY HISTORY: Negative for colon cancer, inflammatory bowel disease, or celiac disease. REVIEW OF SYSTEMS: The patient denies headache, blurred vision, nausea, vomiting, chest pain, shortness of breath. Positive for abdominal pain. No skin rashes. PHYSICAL EXAMINATION: Vital signs upon presentation: Temperature is 37.4, pulse 83, respiratory rate 20, blood pressure 132/76, satting 97% on room air. General: No acute distress. Head: No scars. Eyes: Anicteric. Throat supple. Lungs: Clear to auscultation bilaterally. Cardiovascular exam: Regular rhythm and rate. Abdomen is firm, distended, diffuse pain upon palpation. Hypoactive bowel sounds. Positive for rebound tenderness and peritoneal signs. Extremities: No cyanosis, clubbing, or edema. LABORATORIES: Show a white count of 0.7, with a percent neutrophil count 83, hemoglobin 10.4, hematocrit 33, MCV 86, platelet count 86. Sodium 137, potassium 4.1, chloride 101, bicarb 21, BUN 29, creatinine 0.96, glucose 157. Lactic acid 1.6, calcium 8.1, total magnesium 1.8, total bili 2.8, AST 27, ALT 27, alk phos 56. Troponin is negative. BNP 1443. Total protein 5.3, albumin 3.2, lipase 27. PT 11.3, INR 1.0. UA is negative. There was a CT of the abdomen and pelvis done without contrast on February 05, 2017, which showed: 1. New segmental wall thickening in the mid small bowel associated with segmental inflammatory fat stranding and associated mesentery. 2. Status post left hepatectomy with small postop fluid collection. 3. Descending and sigmoid colon diverticulosis without diverticulitis. 4. Right adrenal adenoma. 5. A 3.6 cm short segment abdominal aortic aneurysm unchanged. 6. A 2.9 cm dependent mobile lumbar stone. 7. Small bilateral fat inguinal hernia initially seen on abdominal x-ray done February 05, 2017, showing no bowel obstruction, perforation, 3 cm left bladder stone. ASSESSMENT AND PLAN: This is a 81-year-old male with a history of cholangiocarcinoma of the left lobe of the liver status post resection two months ago, on Xeloda, history of myocardial infarction x2, aortic stenosis status post valve placement, congestive heart failure with ejection fraction 40%, ventricular tachycardia, currently has a dual chamber automatic implantable cardioverter-defibrillator placement on amiodarone, sleep apnea, cholecystectomy, who presents for consultation for abdominal pain, fevers, chills at this point in time, and abdominal distention. I am concerned at this point in time given the fact the patient is behaving as an acute abdomen. The patient does have rebound tenderness with marked abdominal distention and peritoneal signs with rebound tenderness. CT abdomen and pelvis was done without contrast. I have spoken to the radiologist and we will repeat a CT abdomen and pelvis with contrast, and I have also called the electronic commerce specialist general surgeon to come and evaluate the patient for a surgical consultation. Also, recommend to check the patient for stool studies, along with CMV cytomegalovirus PCR, IgM and IgG. I also agree the patient should be on broad-spectrum antibiotics, which patient is on Zosyn and Flagyl. Unfortunately, the patient spiked temperatures through Zosyn and Flagyl, and I suspect there was something from an intra-abdominal source that may be causing the patient's acute presentation. RECOMMENDATIONS: 1. General surgery consult has been called. 2. CT of abdomen and pelvis with oral and IV contrast. 3. Please check stool studies, along with a CMV, IgG, IgM in the blood. 4. Serial abdominal exams. 5. Continue broad-spectrum antibiotics such as Zosyn and Flagyl. Will continue to follow. MTDD
[2017-02-06] MEDS: MeTOProlol 1 mg/mL 5 mL Inj IVPUSH SCH ×4 (03:05→23:30)
--- NOTE | 2017-02-06 04:41 | NUR ---
ACTIVITY' up to the [facility] with two assist and had a liquid green stool. Sample sent to the lab for Ayesha sullivan. Addendum: 02/06/17 at 0507 by SHERRI VALLEJO RN NPO after midnight. Addendum: 02/06/17 at 0510 by SHERRI VALLEJO RN CORRECTION; NPO this shift.
--- NOTE | 2017-02-06 04:54 | NUR ---
PSYCH; sitting up in bed brushing his teeth. States feels "alot better" this morning.
--- NOTE | 2017-02-06 05:01 | NUR ---
ESTIMATOR JEWELRY; reports "V paced, 70's".
[2017-02-06 05:41] LABS: BASOPHILS % (AUTO) 0 % (0-3); EOSINOPHILS % (AUTO) 0 % (0-5); Mean Corpuscular Hemoglobin 26.8 pg (27.0-35.0); Mean Corpuscular Volume 86.9 fL (81-100); Platelet Count 60 bil/L (150-400)
[2017-02-06 06:06] LABS: MONOCYTES % (AUTO) 2 % (4-12); NEUTROPHILS % (AUTO) 68 % (40-74)
[2017-02-06 06:17] LABS: Magnesium 1.9 mg/dL (1.6-2.6); Phosphorus 3.1 mg/dL (2.5-4.9)
--- NOTE | 2017-02-06 08:05 | DRSVH ---
PROCEDURE: CT ABDOMEN AND PELVIS WITH CONTRAST ([id number]) INDICATIONS: distended abdomen, f/c, peritoneal signs TECHNIQUE: After the administration of oral and intravenous contrast, 5 mm thick sections acquired from the diap hragms to the symphysis. 5 mm thick coronal and sagittal reformats were performed. For radiation do se reduction, the following was used: automated exposure control, adjustment of mA and/or kV accordi ng to patient size. COMPARISON: None. FINDINGS: Image quality: Excellent. ABDOMEN: Lung bases: Lung bases are clear. Heart size is normal. Solid organs: Cholecystectomy. Low-density inferior right lobe liver hepatic masses consistent with b enign cysts. Heterogeneous enhancement in the remaining liver (for example se 4 im 40). Previous left hemihepatectomy. Nodular shrunken confirmation to the liver may represent cirrhosis. Pancreatic tail calcifications consistent with previous pancreatitis. Benign right adrenal adenoma otherwise the adr enal glands are normal. Benign renal cysts otherwise the kidneys are normal. Minimal perihepatic and perisplenic ascites. Peritoneum and bowel: Diverticulosis with no evidence of acute diverticulitis. There is marked wall thickening in the ileum with minimal gas and fluid filled dilatation of the more proximal small bowel containing mild air-fluid levels. Mesenteric edema and prominent but not pathologically enlarged lym ph nodes. The appendix not identified. There are no secondary signs of acute appendicitis. Grossly no rmal stomach.. Nodes and vessels: No retroperitoneal adenopathy. Prominent but not pathologically enlarged mesenter ic lymph nodes. The inferior vena cava is normal in caliber. Stable ectasia of the distal abdominal aorta with vascular calcifications. Miscellaneous: No ventral hernias. PELVIS: Genitourinary: Bladder wall thickness is normal. There is a stable 2.7 cm bladder calculus. Miscellaneous: No inguinal hernias or adenopathy. Bones: No suspicious bony lesions. No vertebral body compression fractures. IMPRESSION: 1. Small bowel wall thickening consistent with moderate enteritis in the ileum with a degree of parti al small bowel obstruction. No perforation. 2. Left hepatectomy with possibly cirrhotic confirmation to the liver. There is heterogeneous enhance ment in the remaining liver. Recommend screening with multiphasic CT including arterial phase imaging on a nonemergent basis. 3. Bladder calculus. 4. Distal abdominal aortic ectasia. 5. There are no discrepancies with the preliminary report. Dictated by: Devin Armando M.D. on 02/06/2017 at 7:51 Approved by: Devin Armando M.D. on 02/06/2017 at 8:03
[2017-02-06] MEDS: Furosemide 10 mg/mL 2 mL Inj IVPUSH SCH (09:12)
[2017-02-06] MEDS: Meropenem Inj 1,000 MG in 0.9% Sodium Chloride 100 ML IV SCH ×2 (09:12→16:14)
[2017-02-06] MEDS: HYDROmorphone 0.5 mg/0.5 mL iSecure Syringe IVPUSH PRN (09:32)
--- NOTE | 2017-02-06 10:13 | PCM.PNSURG ---
Subjective Date of Service: Feb 06, 2017 Visit Information: Reason for Visit Enteritis,Neutropena Surgery/Surgery Date Post-Op Day # Date of Admission: Feb 05, 2017 at 15:33 Hospital Day # Subjective: Febrile to max 38.8 No other acute overnight events Patient reports this morning that he is feeling much improved Abdominal pain only mild in severity, no nausea, no vomiting Feels less weak and fatigued as well. Objective Vital Sign- Last 8 Hours Date Time Temp Pulse Resp B/P Pulse Ox O2 Delivery O2 Flow Rate FiO2 02/06/17 09:23 36.8 79 16 92/62 95 Room Air 02/06/17 05:09 36.8 76 16 103/65 97 Room Air Intake and Output- Last 8 Hour 02/06/17 Cumulative From/Thru 07:00 02/05/17 12:13 - 02/06/17 06:38 Intake Total 150 ml 250 ml Output Total 580 ml 1085 ml Balance -430 ml -835 ml Intake Oral 0 ml 0 ml IV Total 150 ml 250 ml Output Urine Total 480 ml 985 ml Stool Total 100 ml 100 ml # Voids 1 # Bowel Movements 0 General: Alert, Oriented X3, No Acute Distress Neck: Supple Lungs: Normal Air Movement Abdomen: Other (Mildly tender in the suprapubic and infraumbilical region. No rebound or percussive tenderness. Moderately distended but soft overall. No guarding. 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 His pain and abdominal exam are much improved this morning. His WBC has increased to 2.2 after dose of filgrastim. Differential includes typhylitis vs other infectious process. Imaging is not consistent with an SBO or mesenteric ischemia. Problems: Plan - Patient is unlikely to require an operation at this point given his improvement - He should remain on broad spectrum antibiotics - He should remain NPO - Plain film this morning to confirm no free air - Appreciate GI recs regarding infectious/enteritis work up - Please do not hesitate to call with questions or concerns Resuscitation Status: CPR: Attempt Resuscitation Bud Castañeda MD Feb 06, 2017 10:13
--- NOTE | 2017-02-06 10:57 | DRSVH ---
PROCEDURE: X-RAY ACUTE ABDOMINAL SERIES ([id number]) INDICATIONS: Eval for free air and worse small bowel dilation TECHNIQUE: One view chest and two views of the abdomen were acquired. COMPARISON: [facility], CT, CT ABD PELVIS W CON, 02/05/2017, 22:22. [facility] al, CR, XR ABD ACUTE SERIES 3VW, 02/05/2017, 13:01. FINDINGS: Surgical changes and devices: Left chest wall AICD appears stable in position. There is a prosthetic aortic valve again noted. Chest: There is a new small left pleural effusion. Lungs are otherwise clear. Heart size is borderl ine enlarged. No pneumoperitoneum. Abdomen: Bowel gas pattern redemonstrates multiple mildly dilated loops of small bowel throughout th e abdomen measuring up to approximately 5 cm. There are numerous small bowel air-fluid levels. Ther e is contrast material within the colon from recent CT scan. No suspicious calcifications. Bones: No suspicious bony lesions. IMPRESSION: 1. Persistent dilated loops of small bowel with air-fluid levels compatible with obstruction seen on CT. Presence of contrast in the colon is indicative of a partial obstruction. 2. No evidence of pneumoperitoneum. 3. Small left pleural effusion. Dictated by: David Laureano M.D. on 02/06/2017 at 10:51 Approved by: David Laureano M.D. on 02/06/2017 at 10:55
--- NOTE | 2017-02-06 11:19 | PCM.PNSURG ---
Subjective Date of Service: Feb 06, 2017 Date of Service: Feb 06, 2017 Visit Information: Reason for Visit Enteritis,Neutropena Surgery/Surgery Date Post-Op Day # Date of Admission: Feb 05, 2017 at 15:33 Hospital Day # Subjective: Gastroenterology Progress Note No acute events overnight. Patient states he overall feels much better. Stooling has slowed. he continues to have some abdominal pain in the LLQ but this is also much improved. Denies nausea or vomiting. Would like to eat and drink. Postop General: No Shortness of Breath, No Chest Pain Gastrointestinal: No N/V, Normal Bowel Movement Objective Vital Sign- Last 8 Hours Date Time Temp Pulse Resp B/P Pulse Ox O2 Delivery O2 Flow Rate FiO2 02/06/17 10:20 80 02/06/17 09:23 36.8 79 16 92/62 95 Room Air 02/06/17 05:09 36.8 76 16 103/65 97 Room Air Intake and Output- Last 8 Hour 02/06/17 Cumulative From/Thru 07:00 02/05/17 12:13 - 02/06/17 06:38 Intake Total 150 ml 250 ml Output Total 580 ml 1085 ml Balance -430 ml -835 ml Intake Oral 0 ml 0 ml IV Total 150 ml 250 ml Output Urine Total 480 ml 985 ml Stool Total 100 ml 100 ml # Voids 1 # Bowel Movements 0 General: Alert, Oriented X3, No Acute Distress Neck: Full Range of Motion Lungs: Clear to Auscultation Heart: Exam Unremarkable Abdomen: Soft, Normoactive bowel tones, Other (tenderness to palpation in LLQ improved from yesterday) Extremities: Warm Neuro: Grossly Neurologically Intact Catheters: None Result Diagram: 02/06/1751902/06/17 05 Diagnostics: X-RAY ACUTE ABDOMINAL SERIES ([id number]) IMPRESSION: 1. Persistent dilated loops of small bowel with air-fluid levels compatible with obstruction seen on CT. Presence of contrast in the colon is indicative of a partial obstruction. 2. No evidence of pneumoperitoneum. 3. Small left pleural effusion. Dictated by: David Laureano M.D. on 02/06/2017 at 10:51 Approved by: David Laureano M.D. 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 I am concerned at this point in time given the fact the patient is behaving as an acute abdomen. The patient does have rebound tenderness with marked abdominal distention and peritoneal signs with rebound tenderness. CT abdomen and pelvis was done without contrast. I have spoken to the radiologist and we will repeat a CT abdomen and pelvis with contrast, and I have also called the retail sales consultant general surgeon to come and evaluate the patient for a surgical consultation. Also, recommend to check the patient for stool studies, along with CMV cytomegalovirus PCR, IgM and IgG. I also agree the patient should be on broad-spectrum antibiotics, which patient is on Zosyn and Flagyl. Unfortunately, the patient spiked temperatures through Zosyn and Flagyl , and I suspect there was something from an intra-abdominal source vs possible Sepsis that may be causing the patient's acute presentation. RECOMMENDATIONS: 1. Recs per General surgery 2. Patient to remain NPO. May have ice chips. 3. Stool studies negative. CMV, IgG and IgM pending. 4. Serial abdominal exams. 5. Continue broad-spectrum antibiotics such as Zosyn and Flagyl. Primary team to consider ID consult. Thank you for involving us in the patient's care. We will continue to follow. Problems: Resuscitation Status: CPR: Attempt Resuscitation SHAYY LEIVA DO Feb 06, 2017 11:19 Ezequiel Pereira MD Feb 06, 2017 13:32 SHAYY LEIVA DO Feb 06, 2017 11:19
--- NOTE | 2017-02-06 15:38 | PCM.PNMED ---
Subjective Date of Service Feb 06, 2017 Subjective Patient is feeling much better. Endorsing good pain relief. He confirms to me that his appendix was taken out when he had a cholecystecomy. He says that there was a concern at the time of his liver resection that there was still some malignant tissue margins were left, thus he was going through chemo. He is expecting to do radiation thereafter. Exam Vital Signs Vital Sign - Last Date Time Temp Pulse Resp B/P Pulse Ox O2 Delivery O2 Flow Rate FiO2 02/06/17 14:59 36.5 65 20 97/63 95 Room Air Intake and Output 02/05/17 02/05/17 02/06/17 Cumulative From/Thru 15:00 23:00 07:00 02/05/17 12:13 - 02/06/17 06:38 Intake Total 100 ml 150 ml 250 ml Output Total 505 ml 580 ml 1085 ml Balance -405 ml -430 ml -835 ml Intake Oral 0 ml 0 ml 0 ml IV Total 100 ml 150 ml 250 ml Output Urine Total 505 ml 480 ml 985 ml Stool Total 100 ml 100 ml # Voids 1 1 # Bowel Movements 0 0 Exam General: Age-appropriate male HEENT: EOMI, nonicteric, membranes moist; JVD on exam Cardio: Regular rate and rhythm no murmurs rubs or gallops Respiratory: CTA bilaterally, no wheezes, no crackles Abdomen: Normal bowel sounds, now he has LLQ tenderness, much improved pain overall Extremities: No edema, sensation intact Psych: Appropriate mood and affect Neuro: no focal deficits Skin: No rash IVs and Medications Medications Reviewed: Medications were reviewed in detail Lab and Diagnostics Result Diagram: 02/06/1751902/06/17 0520 X-Rays, CTs and MRIs CT abdomen/pelvis 1. New segmental wall thickening involving the mid small bowel, with associated segmental inflammatory fat stranding of the associated mesentery. Finding may represent localized infectious process, versus an unusual presentation of small bowel ischemia. 2. Status post left hepatectomy, with small postoperative fluid collection unchanged. Small perihepatic ascites has slightly increased in size 3. Descending and sigmoid colon diverticulosis, without acute diverticulitis. 4. Incidental small right adrenal adenoma is unchanged 5. 3.6 cm short segment abdominal aortic aneurysm is unchanged. 6. 2.9 cm dependent mobile lumbar stone is again noted 7. Small bilateral fat-containing inguinal hernias as before. Dictated by: Ralf Pinto M.D. 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 Severe Enteritis due to infectiosu vs ischemic etiologies in the setting of neutropenia; present on admission; ongoing -Patient presents with a abdominal pain with severe palpatory tenderness and pancytopenia; small bowel edema concerning for infection versus ischemia, low suspicion for ischemia as there is no GI bleed -Neutrophil count around 600 at admission, now improving-->1500, may not need precautions soon -Patient spiked a fever upon arriving to the floor, Blood cultures taken prior to that -Pro calcitonin ordered -Start on meropenem abx -Lactic acid 1.6->1.6 -Consulted trauma surgeon sponsorship coordinator about concern for acute abdomen: Resident has seen the patient, recommend watchful waiting. He seems to indicate CT abd w/ contrast will help, pt declined PO contrast earlier in the ER. GI did order a f/ u CT abd with IV contrast which did not show any new findings but confirmed there is no perforation. It appears that surgery have ordered serial abdominal films -Consulted GI also for possible infectious enteritis: They recommend the CMV, IgG and IgM in addition to stool PCR(neg). These are ordered and currently still pending. -Patient has heart failure, we will gently resuscitated with normal saline -Tele -Dilaudid for pain Pancytopenia secondary to ongoing capecitabine use; is on admission; ongoing -Patient receiving medication for ongoing cholangiocarcinoma treatment -Called ONC, Dr. Ford sponsorship coordinator, states Dr. Cash already discussed case with him as DR. Stevens is away. Dr. Ford will see the patient. One dose of Granix in ED per Dr. Cash. Further doses pending oncology recommendation. -Neutropenia precautions -Held night dose of capecitabine Chronic HFpEF; present admission; ongoing -Last echo was in July and showed ejection fraction of 40-45% -Continue home medications as there is no evidence of end organ damage due to heart failure -Do not see ARB; patient allergic to lisinopril -One dose of IV lasix ad one dose of metoprolol were given at the time of admission as patient did not take home meds all day --Pt is placed on tele --patient has three type of diuretics home meds: spironolactone, torsemide and furosemide. Discontinued the IV Lasix, held spironolactone. Cont torsemide. Plan to add these back in as he recovers more. His Intake is not very high, though he did take some gastrograffin PO, Fluids with IV abx. Documentation of early fluids in admission note. --Careful administration of fluids, he has prominent JVD, likely from HF from stiffened ventricle/ischemic heart dz -- Reviewed Cardiology notes from [facility] 01/23: " mildly reduced LV systolic function ejection fraction 45-50%, known ischemic heart disease with occluded RCA, bioprosthetic aortic valve replacement, VT arrest as well as sick sinus syndrome with a dual-chamber ICD in place, and a history of RV infarct with overall normal PA pressures and severe tricuspid regurgitation. 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 By my read of the oncology notes he is stage II. While hospitalized for his surgery he developed atrial fibrillation and was briefly anticoagulated. His bleeding risk was ultimately identified to be too high and his anticoagulations was stopped. He has a minimal atrial fibrillation burden on his device checks. " Hyperglycemia; present admission; ongoing -Blood glucose on presentation was 157 -A1c ordered -NPO diet -We will monitor for need for insulin Tachycardia with AICD pacer-continue amiodarone and metoprolol Hyperlipidemia-hold simvastatin CAD-nitroglycerin sublingual and aspirin Disposition: Patient is being admitted to inpatient status with expected length of stay greater than two midnights due to to severity of presentation, duration of treatment, and risks of adverse events disposition Full code, ADM Pain Evaluation: Adequate Pain Control Resuscitation Status: CPR: Attempt Resuscitation Pain Evaluation: Adequate Pain Control Resuscitation Status: CPR: Attempt Resuscitation Time spent 25 min Eloina Cevallos DO Feb 06, 2017 15:38
[2017-02-06] MEDS ORDERED: 0.9% Sodium Chloride 100 ML ONE (16:07)
[2017-02-06] MEDS ORDERED: ACYC400T2 PO (17:03)
[2017-02-06] MEDS ORDERED: SPIR25TA3 PO (17:03)
[2017-02-06] MEDS ORDERED: PRED5DRO6 LEFT_EYE (17:03)
[2017-02-06] MEDS ORDERED: PROC10TA PO (17:03)
[2017-02-06] MEDS ORDERED: TORS10TA5 PO (17:03)
[2017-02-06] MEDS ORDERED: ONDA-54 PO (17:03)
--- NOTE | 2017-02-06 17:26 | NUR ---
Social Work: Initial Assessment/Multi-Disciplinary Rounds D: EMR reviewed. Please see Initial Assessment linked to this note for more information. Pt is a 81 y/o male admitted for enteritis, neutropenia per H&P. Pt has a readmit risk score of 3. SW met with pt at bedside to conduct initial assessment. Pt was alert and oriented x3. SW explained role and wrote phone number on white board. SW provided "Your Discharge Planning Checklist" and encouraged pt to contact SW for any discharge planning questions. Pt's insurance is Medicare and [employer] Supplemental. PCP is Jorge Xie MD. Pt gave verbal consent to contact spouse Kat Goldsmith [phone] for discharge planning. DPOA/advanced directive ppw discussed - ppw provided and SW encouraged pt to provide the hospital with a copy once complete. Pt owns a cane and a CPAP machine. Pt uses cane occasionally for ambulation. Pt is independent with all ADLs. Pt discussed in multidisciplinary rounds. Per multidisciplinary rounds, pt is not medically stable for discharge, anticipate 2-3 more days pending GI/OR/Oncology. No SW needs identified, no MD orders received. A: SW assessed pt's capacity for self-care. SW does not have any concerns for pt's capacity for self-care. Pt is independent with ADLs at baseline. Pt does not have any concerns regarding discharge at this time. Pt lives at home with his spouse in [facility] [facility]. Pt has no hx of a SNF or HH. P: Pt likely to discharge home with spouse to transport via POV. No SW needs identified. No MD orders received. SW will continue to follow for needs. SUSY Mena Addendum: 02/06/17 at 1730 by CHAVEZ MOFFETT Amended: Links added.
--- NOTE | 2017-02-06 18:32 | NUR ---
Off Unit Pt off unit to Xray at 1005; left via w/c. A&Ox3, ROBERSON, VSS, IV infusing, Tele on. Returned at 1015 to [facility] unit, 1024.
--- NOTE | 2017-02-06 18:33 | NUR ---
Granix/Mobility Pt with new order for Granix ordered. Pt educated and aware of medication/usage. Sleeping intermittently throughout shift, when ready for injection, pt willing and accepting, but sleepy. Did not remember injection when asked by Dr. Ford later. Dose was given. Pt tolerated. Pt seeming improved from RN report and pt report. Pt stating feeling stronger than previously. Has been up and down to BSC with SBA, FWW. Gait steady, minimal tremor noted. Pt A&Ox3, is stating hungry but aware of plan of care re: continued NPO status at this time. Care continues.
[2017-02-07] VITALS (8 sets, daily range): BP systolic 90–107; BP diastolic 60–73; PULSE 59–94; RESP 16–20; O2SAT 98–100
[2017-02-07] MEDS: Meropenem Inj 1,000 MG in 0.9% Sodium Chloride 100 ML IV SCH ×3 (01:15→17:10)
[2017-02-07 01:43] LABS: Mean Corpuscular Hemoglobin 26.8 pg (27.0-35.0); Mean Corpuscular Volume 86.2 fL (81-100)
[2017-02-07] MEDS: D5 0.45% NaCl + KCl 20 mEq/L 1,000 ML IV SCH ×2 (03:24→14:31)
--- NOTE | 2017-02-07 05:01 | NUR ---
Activity Pt reports hungry and needing "iced tea". he is aware of the NPO status and compliant but is having a H/A r/t no caffeine. Pt up using urinal at bedside and up to BSC x1. Pt is weak but states feeling better than before. IV abo infusing at start of shift, IV failed and was d/c'd. New IV start completed and Pt rec'd IV abo's as ordered. ordered labs drawn and then ordered IV fluids- D51/2NS with 20k. Pt required 2nd IV due to incompatible and time running for ABO's. Pt accepted 2 IV's, many starts failed, Pt states he is a hard start. Final attempt successful to right FA. Fluids infusing. Pt remains on neutropenic precautions. Afebrile. Denies abdominal pain, did not require pain meds this shift. care continues
[2017-02-07] MEDS: PrednisoLONE 1% 1 mL Ophthalmic Suspension LEFT_EYE SCH (07:56)
--- NOTE | 2017-02-07 08:58 | PROG NOTE ---
[address] [address] PROGRESS NOTE PATIENT: MARGARETH LOCKETT : 1935 MR#: [id number] ADMIT: 02/05/2017 JOB ID: [id number] DATE: 02/06/2017 SUBJECTIVE: The patient is a 81-year-old gentleman followed by my partner, Dr. Fortunato Stevens, [facility]. Tumor was resected with negative margins but evidence of multifocality within the resected specimen in the left hepatic lobe. He has been receiving adjuvant Xeloda and gemcitabine. He started cycle two on January 25, 2017. He presented to the emergency department on February 05, 2017 with increased right upper quadrant abdominal pain for about two days. He had been having increased abdominal swelling and diarrhea. He denied fevers. CT of the abdomen on February 05, 2017 showed small bowel wall thickening consistent with moderate enteritis in the ileum with a degree of partial small bowel obstruction. There was no evidence of perforation. Prior left hepatectomy surgery was noted. Incidental note was made of a bladder calculus. He had significant neutropenia with a total white count of 0.7 with 83% neutrophils. He was placed on neutropenic precautions, and treated with meropenem 1 g IV every 8 hours. He is feeling a bit better today. He has been afebrile since admission, at which time he had a brief fever spike of 38.8. All other vitals have been within normal limits. He received growth factor support with G-CSF yesterday and earlier today. Stool cultures are negative. Blood cultures are pending. OBJECTIVE: Vitals: T 36.5, P 65, R 20, BP 97/63, O2 saturation 95% on room air. HEENT: Conjunctivae slightly pale. Mucous membranes moist. No oral lesions. Nodes no adenopathy in the neck or axilla. Chest slightly decreased at the bases. Cardiac exam regular rate and rhythm with normal S1, S2. Abdomen soft, mild tenderness, no rebound or guarding. Active bowel tones. Post surgical changes. Extremities: No edema, 2+ distal pulses. LABORATORIES: WBC 2.2 with 68% neutrophils, hemoglobin 9.0, hematocrit 29.2%, MCV 87. Platelets 60,000. Sodium 139, potassium 3.6. BUN 23, creatinine 1.11. Glucose 121. Calcium 7.5. Albumin 2.8. Procalcitonin 3.43. TSH 1.05. ASSESSMENT AND PLAN: Neutropenic enterocolitis (typhlitis): The patient has received recent chemotherapy with gemcitabine and Xeloda for management of his resected cholangiocarcinoma. Presenting with fevers, neutropenia, and imaging that showed enterocolitis, findings are very consistent with typhlitis. There was no evidence of perforation on imaging. He is on good broad-spectrum antibiotic coverage and is now afebrile. Neutropenia is improving, which should lead to rapid resolution. Continue additional supportive care with nutritional support and intravenous fluids. No indication for transfusions. His abdomen does not appear surgical. Continue to monitor. Dr. Cash will evaluate the patient tomorrow. Cc: Dr Eloina Cevallos
--- NOTE | 2017-02-07 10:31 | DRSVH ---
PROCEDURE: X-RAY ACUTE ABDOMINAL SERIES ([id number]) INDICATIONS: Eval for free air and worse small bowel dilation TECHNIQUE: One view chest and two views of the abdomen were acquired. COMPARISON: [facility], CT, CT ABD PELVIS W CON, 02/05/2017, 22:22. [facility] al, CR, XR ABD ACUTE SERIES 3VW, 02/06/2017, 10:14. FINDINGS: Surgical changes and devices: Left chest wall AICD appears stable in position. There is a prosthetic aortic valve again noted. Chest: There is a persistent small left pleural effusion. Lungs are otherwise clear. Heart size is borderline enlarged. No pneumoperitoneum. Abdomen: Bowel gas pattern redemonstrates multiple mildly dilated loops of small bowel throughout th e abdomen measuring up to approximately 4 cm. Numerous small bowel air-fluid levels. There is contr ast material within the colon from recent CT scan. Urinary bladder calcification again noted. Bones: No suspicious bony lesions. IMPRESSION: Findings suggestive of persistent partial small bowel obstruction and no pneumoperitoneum is seen. Trace left pleural effusion. Urinary bladder calculus redemonstrated. Dictated by: Kalen Chaudhary [facility] Interpreted: Clau Duff MD on 02/07/2017 at 9:59 Approved by: Clau Duff MD, PhD on 02/07/2017 at 10:28
--- NOTE | 2017-02-07 11:52 | PCM.PNMED ---
Subjective Date of Service Feb 07, 2017 Exam Vital Signs Vital Sign - Last Date Time Temp Pulse Resp B/P Pulse Ox O2 Delivery O2 Flow Rate FiO2 02/07/17 10:22 78 02/07/17 07:54 107/64 02/07/17 05:56 36.9 16 99 Room Air Intake and Output 02/06/17 02/06/17 02/07/17 Cumulative From/Thru 15:00 23:00 07:00 02/05/17 12:13 - 02/07/17 06:19 Intake Total 107 ml 471 ml 0 ml 828 ml Output Total 450 ml 425 ml 1960 ml Balance 107 ml 21 ml -425 ml -1132 ml Intake Oral 400 ml 0 ml 400 ml IV Total 107 ml 71 ml 428 ml Output Urine Total 450 ml 425 ml 1860 ml Stool Total 100 ml # Voids 1 # Bowel Movements 1 2 3 Lab and Diagnostics Result Diagram: 02/07/17 0130 02/07/17 0750 X-Rays, CTs and MRIs CT abdomen/pelvis 1. New segmental wall thickening involving the mid small bowel, with associated segmental inflammatory fat stranding of the associated mesentery. Finding may represent localized infectious process, versus an unusual presentation of small bowel ischemia. 2. Status post left hepatectomy, with small postoperative fluid collection unchanged. Small perihepatic ascites has slightly increased in size 3. Descending and sigmoid colon diverticulosis, without acute diverticulitis. 4. Incidental small right adrenal adenoma is unchanged 5. 3.6 cm short segment abdominal aortic aneurysm is unchanged. 6. 2.9 cm dependent mobile lumbar stone is again noted 7. Small bilateral fat-containing inguinal hernias as before. Dictated by: Ralf Pinto M.D. 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 Typhilitis (neutropenic enterocolitis) in the setting of neutropenia; present on admission; ongoing- -Patient presents with abdominal pain with severe palpatory tenderness and pancytopenia; small bowel edema concerning for infection versus ischemia, low suspicion for ischemia as there is no GI bleed -Neutrophil count around 600 at admission, now improving-->1500, may not need precautions soon -Patient spiked a fever upon arriving to the floor, Blood cultures taken prior to that -Consulted trauma surgeon manager business operations about concern for acute abdomen: Resident has seen the patient, recommend watchful waiting. He seems to indicate CT abd w/ contrast will help, pt declined PO contrast earlier in the ER. GI did order a f/ u CT abd with IV contrast which did not show any new findings but confirmed there is no perforation. It appears that surgery have ordered serial abdominal films -Consulted GI also for possible infectious enteritis: They recommend the CMV, IgG and IgM in addition to stool PCR(neg). These are ordered and currently still pending. -Patient has heart failure, we will gently resuscitated with normal saline - ID consulted, Dr. Castro. Will c/w Meropenam until more improvement and can tolerate PO diet. Per ID, Once the patient is eating and is getting closer to going home, he could be switched to a combination of Cipro and Flagyl to complete a 14 day course of therapy.Loose Stools- f/u C.Diff, likely related to Chemo or Typhiliits. Pancytopenia secondary to ongoing capecitabine use; is on admission; ongoing -Patient receiving medication for ongoing cholangiocarcinoma treatment -Called ONC, Dr. Ford manager business operations, states Dr. Cash already discussed case with him as DR. Stevens is away. Dr. Ford will see the patient. One dose of Granix in ED per Dr. Cash. Further doses pending oncology recommendation. -Neutropenia precautions -Held night dose of capecitabine - Per 02/07 Onc Note- Dr. Ford- Neutropenic enterocolitis (typhlitis): The patient has received recent chemotherapy with gemcitabine and Xeloda for management of his resected cholangiocarcinoma. Presenting with fevers, neutropenia, and imaging that showed enterocolitis, findings are very consistent with typhlitis. There was no evidence of perforation on imaging. He is on good broad-spectrum antibiotic coverage and is now afebrile. Neutropenia is improving, which should lead to rapid resolution. Continue additional supportive care with nutritional support and intravenous fluids. No indication for transfusions. His abdomen does not appear surgical. Continue to monitor. Dr. Cash will evaluate the patient tomorrow. Chronic HFpEF; present admission; ongoing -Last echo was in July and showed ejection fraction of 40-45% -Continue home medications as there is no evidence of end organ damage due to heart failure -Do not see ARB; patient allergic to lisinopril -One dose of IV lasix ad one dose of metoprolol were given at the time of admission as patient did not take home meds all day --Pt is placed on tele --patient has three type of diuretics home meds: spironolactone, torsemide and furosemide. Discontinued the IV Lasix, held spironolactone. Cont torsemide. Plan to add these back in as he recovers more. His Intake is not very high, though he did take some gastrograffin PO, Fluids with IV abx. Documentation of early fluids in admission note. --Careful administration of fluids, he has prominent JVD, likely from HF from stiffened ventricle/ischemic heart dz -- Reviewed Cardiology notes from [facility] 01/23: " mildly reduced LV systolic function ejection fraction 45-50%, known ischemic heart disease with occluded RCA, bioprosthetic aortic valve replacement, VT arrest as well as sick sinus syndrome with a dual-chamber ICD in place, and a history of RV infarct with overall normal PA pressures and severe tricuspid regurgitation. 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 By my read of the oncology notes he is stage II. While hospitalized for his surgery he developed atrial fibrillation and was briefly anticoagulated. His bleeding risk was ultimately identified to be too high and his anticoagulations was stopped. He has a minimal atrial fibrillation burden on his device checks. " Hyperglycemia; present admission; ongoing -Blood glucose on presentation was 157 -A1c ordered -NPO diet -We will monitor for need for insulin Tachycardia with AICD pacer-continue amiodarone and metoprolol Hyperlipidemia-hold simvastatin CAD-nitroglycerin sublingual and aspirin Disposition: Patient is being admitted to inpatient status with expected length of stay greater than two midnights due to to severity of presentation, duration of treatment, and risks of adverse events disposition Full code, ADM Pain Evaluation: Adequate Pain Control Resuscitation Status: CPR: Attempt Resuscitation Resuscitation Status: CPR: Attempt Resuscitation Syed Long MD Feb 07, 2017 11:52
--- NOTE | 2017-02-07 11:58 | CONS ---
[address] [address] CONSULTATION REPORT PATIENT: MARGARETH LOCKETT : 1935 MR#: [id number] ADMIT: 02/05/2017 JOB ID: [id number] DICTATING INFECTIOUS DISEASE FOLLOWUP: DATE OF SERVICE: 02/07/2017 I thank, Dr. Cevallos for this timely consult. REASON FOR CONSULTATION: Neutropenic fevers. HISTORY OF PRESENT ILLNESS: The patient is a 81-year-old gentleman with a complex cardiac history who was diagnosed with cholangiocarcinoma early this year and underwent a resection which also involved resection of portion of his liver. Because of ongoing microscopic disease, he was started on chemotherapy recently including Xeloda and gemcitabine. The first cycle of this produced some neutropenia and the doses were adjusted but subsequent doses have produced neutropenia as well. The patient was admitted to this facility on February 05, three days ago, with severe abdominal pain which started on or about February 04. This abdominal pain was lower abdominal and perhaps worse on the right than the left. It started gradually and became extreme 10/10 pain on February 05, to the point, the patient could scarcely walk or move around. This was associated with some fever, chills, nausea, one episode of vomiting and profound weakness. There was no associated pulmonary or genitourinary symptoms. The patient was evaluated with CT scan which was consistent with small-bowel pathology in the area of the cecum consistent with typhlitis. Also there was concern for small-bowel obstruction or perhaps ischemia. The patient was neutropenic with a neutrophil count of around 500 at the time of his presentation to the emergency department on February 05, and appropriate cultures were done and he was started on meropenem. The patient reports that in his couple of days here in the hospital, he is much improved and his abdominal pain is still present and now is reserved only to the right lower quadrant. The pain has diminished however and he is no longer having any nausea, vomiting or anorexia. He has been n.p.o. for the last couple of days and is actually hoping to eat soon. He has no significant pulmonary complaints and no genitourinary complaints at this time. No additional fevers or chills as noted. PAST MEDICAL HISTORY: 1. Organic heart disease. a. Coronary artery disease. b. CHF. c. Bovine replacement of the aortic valve. d. AICD placement. 2. Obstructive sleep apnea. 3. Cholangiocarcinoma, status post resection in November of this year with ongoing chemotherapy. 4. Hyperlipidemia. 5. Hypertension. SOCIAL HISTORY: The patient is an ex-smoker who quit about 20 years ago. He consumes alcohol socially. Lives with his family in the local area. He did serve in the in [employer] some decades ago. FAMILY HISTORY: Negative for TB in first or second-degree relatives. REVIEW OF SYSTEMS: At this point, the patient has no significant headache. He did have a headache earlier in association with the abdominal pain, but it has resolved. No visual complaints though his vision is poor; it is not changing. No sore throat or trouble swallowing. No significant cough or shortness of breath. No chest pain. He did have nausea and vomiting earlier that has resolved as has most of his abdominal pain though there is still some residual right lower quadrant pain. No urgency frequency, dysuria or penile problems. No swelling of the extremities. No skin rash noted. Remainder of the review of systems is negative. PHYSICAL EXAMINATION: Reveals an afebrile gentleman, temperature was 38.8 about one day into his hospital stay and that has been his only fever in 72 hours. Since then, completely afebrile. Pulse 78, respiratory rate 16, blood pressure 107/64. He is saturating well on room air, in no acute distress. He is awake and alert, and just before I went in to see the patient, he completed a circuit of the [place] walking with the nurse and he had no troubles at all. He has no temporal wasting. No evidence of head injury. His eyes are without conjunctivitis or scleral icterus. His nose is normal. His oral cavity without thrush or pharyngitis. Teeth in good repair. Neck is supple without adenopathy. Lungs quite clear posteriorly. No rales or rhonchi are heard. Cardiac tones with a harsh 2/6 murmur heard across the precordium but very well in the right upper area. His AICD is nontender. The abdomen is somewhat distended with mild right lower quadrant tenderness. No masses appreciated. There is a large right-sided incision which has healed well and there is no evidence for dehiscence or inflammation of that incision. Penis and scrotum were normal. No Schaefer catheter. No inguinal adenopathy. Extremities without evidence of synovitis, cellulitis or any significant edema. There is good perfusion of the extremities. The patient is neurologically intact with good strength. LABORATORY DATA: Labs include a white count that was 700 total white count and about 560 neutrophils when he first came in. It is now up to 8000 with over 5000 neutrophils. Platelet count slightly low currently 54. Yesterday had a bandemia of 14%; that is resolved today with the increased white count. His hematocrit is 28. His creatinine 0.89. Bilirubin 1.3. AST, ALT and alk phos normal. Albumin 2.6. Procalcitonin was 3.4 yesterday; it has not been repeated yet. Urinalysis without white cells. CMV antibodies are pending. CMV qualitative PCR is also pending and I am not certain exactly how those tests will help us, though a quantitative CMV, PCR, might be reasonable. MRSA screen of the nares negative. Stool PCR studies negative and that includes negative for C. difficile and blood cultures negative. IMAGING: I reviewed the abdominal CT which was done the . It shows small-bowel wall thickening in the ileum with some partial possible small-bowel obstruction but no perforation. A plain film of the abdomen done this morning shows possible persistent partial small-bowel obstruction. IMPRESSION: I concur with Dr. Ford's recent note which suggested that the diagnosis here is typhilitis which is also known as neutropenic enterocolitis. The patient presents with a relatively classic story except for the fact that his white count was never all that low. Typhilitis is basically just inflammation of the wall of the bowel where the bowel was thinnest which is in the distal ileum and around the cecum. This occurs in people with protracted neutropenia and almost always involves anaerobes as well as gram-negative aerobes. Enterococci are occasionally involved. Typhilitis tends to resolve as the white count comes up and the patient receives appropriate broad-spectrum antibiotics and that seems to be occurring here. There is no evidence for perforation or acute abdomen. RECOMMENDATIONS: 1. I would continue with meropenem as our sole antibiotic for another day until there is more clear improvement and the patient can start to tolerate a diet. 2. Once the patient is eating and is getting closer to going home, he could be switched to a combination of Cipro and Flagyl to complete a 14 day course of therapy. 3. The patient is having some loose stools but C. diff has already been excluded and I think this is likely part of the typhilitis and chemotherapy process rather than an infection. Will continue to follow. Thank you very much for this consult.
--- NOTE | 2017-02-07 13:34 | PCM.PNSURG ---
Subjective Date of Service: Feb 07, 2017 Date of Service: Feb 07, 2017 Visit Information: Reason for Visit Enteritis,Neutropena Surgery/Surgery Date Post-Op Day # Date of Admission: Feb 05, 2017 at 15:33 Hospital Day # Subjective: Gastroenterology Progress Note No acute events overnight. Patient has been nothing by mouth since admission and would like to eat at this time. He denies any ongoing nausea or vomiting and states his abdominal pain is minimal at this time. He denies any fever, chills, shortness of breath, dysuria, or hematuria. Postop General: No Complaints Objective Vital Sign- Last 8 Hours Date Time Temp Pulse Resp B/P Pulse Ox O2 Delivery O2 Flow Rate FiO2 02/07/17 12:24 36.4 60 18 101/73 98 Room Air 02/07/17 10:22 78 02/07/17 07:54 80 107/64 02/07/17 05:56 36.9 94 16 98/71 99 Room Air Intake and Output- Last 8 Hour 02/07/17 Cumulative From/Thru 07:00 02/05/17 12:13 - 02/07/17 06:19 Intake Total 0 ml 828 ml Output Total 425 ml 1960 ml Balance -425 ml -1132 ml Intake Oral 0 ml 400 ml IV Total 428 ml Output Urine Total 425 ml 1860 ml Stool Total 100 ml # Voids 1 # Bowel Movements 2 3 General: Alert, Oriented X3, No Acute Distress Lungs: Clear to Auscultation, Normal Air Movement Heart: Regular Rate/Rhythm, Other (2/6 systolic murmur) Chest: AICD present left chest wall. Abdomen: Distended (mildly), Normoactive bowel tones, Other (mild right lower quadrant tenderness much improved from prior exam) Extremities: Distal Pulses Palpable, Warm Neuro: Grossly Neurologically Intact Catheters: None Result Diagram: 02/07/17 0130 02/07/17 0750 Assessment & Plan Impression This is a 81-year-old male with a history of cholangiocarcinoma of the left lobe of the liver status post resection two months ago, on Xeloda, history of myocardial infarction x2, aortic stenosis status post valve placement , congestive heart failure with ejection fraction 40%, ventricular tachycardia, currently has a dual chamber automatic implantable cardioverter-defibrillator placement on amiodarone, sleep apnea, cholecystectomy, who presents for consultation for abdominal pain, fevers, chills at this point in time, and abdominal distention. On admission patient had an acute abdomen with rebound tenderness. Today abdominal exam and continues to improve with only mild right lower quadrant tenderness. Dr. Castro and Dr. Ford, oncology, have seen the patient and agree with the diagnosis of typhlitis secondary to chemotherapy rather than an infectious process. At this time they both would like to continue with meropenem and continue to monitor the patient. RECOMMENDATIONS: 1. Continue to appreciate recommendations from infectious disease, oncology, and general surgery. 2. As the patient's pain is improved and is no longer having nausea and vomiting will advance patient's diet to clear liquids. 3. Stool studies negative and CMV, IgG and IgM pending. 4. Continue serial abdominal exams. Significant improvement at this time from admission. 5. We will continue broad-spectrum antibiotics with meropenem. Per Dr. Castro 's note this may be transitioned to a combination of Cipro and Flagyl to complete a 14 day course when the patient is closer to discharge. 6. Patient received a dose of Granix yesterday afternoon per Dr. Ford's request. White blood cell with appropriate rise following. 7. ok to start clear liquid diet today Thank you for involving us in the patient's care. We will continue to follow. Problems: Resuscitation Status: CPR: Attempt Resuscitation SHAYY LEIVA DO Feb 07, 2017 13:34 Ezequiel Pereira MD Feb 07, 2017 14:54
--- NOTE | 2017-02-07 17:59 | NUR ---
GI, activity, and BP Pt. reported >5 loose stools since this am. C.Diff negative. Dr. Alatorre ordered PRN Imodium as requested by pt. Imodium given before dinner. Pt. walked in the hallway x1. He walked half a loop. No C/O activity intolerant or SOB. BP 90/60 around 1700. Pt. denied any low BP symptoms. Repeat BP 15 minutes later, it was 100/64.
[2017-02-07] MEDS ORDERED: 0.9% Sodium Chloride 250 ML ONE (18:29)
--- NOTE | 2017-02-07 19:10 | PCM.PNSURG ---
Subjective Date of Service: Feb 07, 2017 Date of Service: Feb 07, 2017 Visit Information: Reason for Visit Enteritis,Neutropena Surgery/Surgery Date Post-Op Day # Date of Admission: Feb 05, 2017 at 15:33 Hospital Day # Subjective: No acute overnight events WBC improved to 8K today Patient feeling much better today. He says he feels 99% of normal. No nausea or vomiting Wishes to eat Afebrile Objective Vital Sign- Last 8 Hours Date Time Temp Pulse Resp B/P Pulse Ox O2 Delivery O2 Flow Rate FiO2 02/07/17 17:08 61 100/64 02/07/17 16:51 36.6 59 16 90/60 98 Room Air 02/07/17 12:24 36.4 60 18 101/73 98 Room Air Intake and Output- Last 8 Hour 02/07/17 Cumulative From/Thru 07:00 02/05/17 12:13 - 02/07/17 06:19 Intake Total 0 ml 828 ml Output Total 425 ml 1960 ml Balance -425 ml -1132 ml Intake Oral 0 ml 400 ml IV Total 428 ml Output Urine Total 425 ml 1860 ml Stool Total 100 ml # Voids 1 # Bowel Movements 2 3 General: Alert, Oriented X3, Cooperative, No Acute Distress Neck: Supple Lungs: Normal Air Movement Heart: Exam Unremarkable Abdomen: Other (Moderately distended and tympanitic. Mildly tender to palpation lisa-umbilically and in the suprapubic reigon. Soft. ) Extremities: Warm Neuro: Grossly Neurologically Intact Result Diagram: 02/07/17 0130 02/07/17 0750 Assessment & Plan Impression 81M now 2 months s/p laparoscopic left lateral segmentectomy for intrahepatic cholangiocarcinoma, undergoing elena-adjuvant chemotherapy who presented with acute peritonitis, small bowel thickening on CT imaging and neutropenia. He is clinically improved at this time and his WBC has normalized after filgrastim x2. Problems: Plan - No evidence of free air on repeat AXR, small bowel dilation and air-fluid levels improving - Ok to advance diet slowly. Make NPO if pain worsens. - Continue antibiosis - Appreciate ongoing care from GI and primary medicine service Resuscitation Status: CPR: Attempt Resuscitation Bud Castañeda MD Feb 07, 2017 19:10
--- NOTE | 2017-02-07 21:12 | NUR ---
BP Non-admin'd Lopressor 12.5mg due to BP of 93/61. Night hospitalist notified. No new orders at this time. 1st dose Imodium given today, pt states "I believe it is helping". Has had one loose stool this shift.
[2017-02-08] VITALS (9 sets, daily range): BP systolic 88–104; BP diastolic 58–72; PULSE 72–98; RESP 18–20; O2SAT 94–97
[2017-02-08] MEDS: D5 0.45% NaCl + KCl 20 mEq/L 1,000 ML IV SCH ×2 (00:03→12:45)
[2017-02-08] MEDS: Meropenem Inj 1,000 MG in 0.9% Sodium Chloride 100 ML IV SCH ×3 (00:10→16:51)
--- NOTE | 2017-02-08 00:32 | PROG NOTE ---
[address] [address] PROGRESS NOTE PATIENT: MARGARETH LOCKETT : 1935 MR#: [id number] ADMIT: 02/05/2017 JOB ID: [id number] DATE: 02/07/2017 HOSPITAL ROUNDS: This is a 81-year-old man who is receiving combination gemcitabine and capecitabine after resection of an intrahepatic cholangiocarcinoma in the left hepatic lobe. He had microscopic multifocal disease with negative margins and PET-CT scan was negative elsewhere; and therefore, this was considered adjuvant therapy. He also developed neutropenia in early January, but on this occasion he was hospitalized with neutropenia and abdominal pain with a history of some diarrhea and nausea. On February 05, his white count was 0.7 with neutrophils at 83.6%. He received a dose of filgrastim in the emergency department. Stool culture did not detect a specific pathogen, including no Clostridium difficile toxin. He is also being followed by Surgery and is gradually improving and has been advanced to dietarily. Subjectively, he is talkative and comfortable. He complains of no pain at this time and his diarrhea has largely resolved. This was not a major feature of his presentation though, although abdominal pain was, and this is also resolved. OBJECTIVE: His vital signs show a temp of 36.7, pulse 84, respiratory rate 20. Pulse ox 100%. Blood pressure 93/61. Head and neck: Normal skin and hair. Pupils equal, round and reactive without icterus or conjunctivitis. Oral mucosa is without thrush or lesions. Lungs are clear auscultated anteriorly and laterally. Cardiac exam: Rhythm is regular with a faint systolic murmur. Abdomen: Soft, nontender. Active bowel sounds. Extremities without edema. LABORATORY VALUES: The white count is now improved to 8.3, platelets 54, hemoglobin 8.7, hematocrit 28.0. BUN and creatinine are 20 and 0.89. Albumin is low at 2.6. Calcium low at 7.8. Bilirubin 1.3. ASSESSMENT AND RECOMMENDATIONS: Recent abdominal syndrome. I suspect that this is most likely related to capecitabine toxicity and that the patient, if he does continue on capecitabine, will have to have an adjusted dose. There is no indication of an enteric pathogen or a surgical problem. Dr. Castro indicated that he agrees with Dr. Mathey that this may be neutropenic enterocolitis or typhlitis. However, I think that the role of capecitabine has to be taken into account. Currently, patient will continue on the antibiotics recommended by Dr. Castro and he should be able to recover within the next few days.
[2017-02-08] MEDS: HYDROmorphone 0.5 mg/0.5 mL iSecure Syringe IVPUSH PRN (05:22)
--- NOTE | 2017-02-08 05:29 | NUR ---
Pain At 0445 pt states "I am having new pain in my right shoulder and upper right chest and neck, nausea, and new onset numbness/tingling in my right hand and right foot, but I have restless leg syndrome and have experienced this before." Hx of RI X 2, Afib, pacemaker, Vtach. Tele called, pt Afib, V paced, HR 85. V.S. taken manual BP 98/62, P 76, 02 97% RA. Pupils equal/reactive, smile symmetrical. EGK ordered stat by RN, Night hospitalist notified, IV 4mg Zofran given. Night Hospitalist did not think cardiac related, orders to give 0.5mg IV Dilaudid for c/o pain 8 out of 10, if unrelieved, give nitroglycerin tab. SCD's reapplied, pt states "my legs feel better already". And Zofran alleviated nausea. Pain level now 4 out of 10. Numbness and tingling on right side has subsided. Continue care and monitor pain.
--- NOTE | 2017-02-08 08:23 | NUR ---
Pt off unit Pt to radiology for acute abdominal series at 0824 hrs.
--- NOTE | 2017-02-08 09:03 | DRSVH ---
PROCEDURE: X-RAY ACUTE ABDOMINAL SERIES ([id number]) INDICATIONS: Typhlitis and SBO. Increased distention. TECHNIQUE: One view chest and two views of the abdomen were acquired. COMPARISON: [facility], CT, CT ABD PELVIS W CON, 02/05/2017, 22:22. [facility] al, CR, XR ABD ACUTE SERIES 3VW, 02/06/2017, 19:51. FINDINGS: Surgical changes and devices: Left chest wall AICD redemonstrated. Chest: There is a small left pleural effusion. Lungs are otherwise clear. Heart size is normal. No pneumoperitoneum. Abdomen: There are persistent mildly dilated loops of small bowel with air-fluid levels. There is al so gaseous distention of the colon which appears increased from the prior study with a few air-fluid levels. There is residual oral contrast material noted in the rectosigmoid colon. No suspicious karla cifications. Bones: No suspicious bony lesions. IMPRESSION: 1. Persistent dilated loops of bowel with increased gaseous distention of the colon which may reflec t improving small bowel obstruction. 2. Small left pleural effusion. Dictated by: David Laureano M.D. on 02/08/2017 at 8:43 Approved by: David Laureano M.D. on 02/08/2017 at 9:01
[2017-02-08] MEDS: PrednisoLONE 1% 1 mL Ophthalmic Suspension LEFT_EYE SCH (09:08)
--- NOTE | 2017-02-08 09:33 | PCM.PNSURG ---
Subjective Date of Service: Feb 08, 2017 Visit Information: Reason for Visit Enteritis,Neutropena Surgery/Surgery Date Post-Op Day # Date of Admission: Feb 05, 2017 at 15:33 Hospital Day # Subjective: No acute overnight events Continues to report he feels 99% of normal Denies any abdominal pain today Notes he had severe R shoulder pain overnight which improved with pain meds Patient tells me he is passing flatus, has no nausea nor singultus He had several episodes of loose stool yesterday Objective Vital Sign- Last 8 Hours Date Time Temp Pulse Resp B/P Pulse Ox O2 Delivery O2 Flow Rate FiO2 02/08/17 09:25 36.4 85 20 100/65 Room Air 02/08/17 04:06 36.5 72 18 96/58 97 Room Air Intake and Output- Last 8 Hour 02/08/17 Cumulative From/Thru 07:00 02/05/17 12:13 - 02/08/17 06:32 Intake Total 1591 ml 4413 ml Output Total 340 ml 3475 ml Balance 1251 ml 938 ml Intake Oral 600 ml 1700 ml IV Total 991 ml 2713 ml Output Urine Total 340 ml 3075 ml Stool Total 100 ml Urine/Stool Mix 300 ml # Voids 1 # Bowel Movements 1 9 General: Alert, Cooperative, No Acute Distress Neck: Supple Lungs: Normal Air Movement Abdomen: Other (Severely distended but nontender. Well healed surgical incisions. 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 He is symptomatically much improved today, passing gas and stool, with a normalized WBC after filgastrim x2. However, his abdomen is severely distended. Problems: Plan - Obtain AXR today to rule out free air and eval for bowel distention - PLEASE DO NOT GIVE ANTI-DIARRHEA MEDS (thanks!) - Pending results of AXR, ok to advance diet slowly - No surgical indications at this time - Appreciate ongoing care from GI and primary medicine service. Resuscitation Status: CPR: Attempt Resuscitation Bud Castañeda MD Feb 08, 2017 09:33
--- NOTE | 2017-02-08 10:50 | PCM.PNMED ---
Subjective Date of Service Feb 08, 2017 Subjective Pt has inc abd disention after Loperamide, has been stopped. Pt had BM. Exam Vital Signs Vital Sign - Last Date Time Temp Pulse Resp B/P Pulse Ox O2 Delivery O2 Flow Rate FiO2 02/08/17 10:46 76 02/08/17 09:25 36.4 20 100/65 Room Air 02/08/17 04:06 97 Intake and Output 02/07/17 02/07/17 02/08/17 Cumulative From/Thru 15:00 23:00 07:00 02/05/17 12:13 - 02/08/17 06:32 Intake Total 355 ml 1639 ml 1591 ml 4413 ml Output Total 1175 ml 340 ml 3475 ml Balance 355 ml 464 ml 1251 ml 938 ml Intake Oral 700 ml 600 ml 1700 ml IV Total 355 ml 939 ml 991 ml 2713 ml Output Urine Total 875 ml 340 ml 3075 ml Stool Total 100 ml Urine/Stool Mix 300 ml 300 ml # Voids 1 # Bowel Movements 5 1 9 Exam General: Age-appropriate male HEENT: EOMI, nonicteric, membranes moist; JVD on exam Cardio: Regular rate and rhythm no murmurs rubs or gallops Respiratory: CTA bilaterally, no wheezes, no crackles Abdomen: Normal bowel sounds, +abd distention, Well healed surgical incisions. Mildly tympanitic Extremities: No edema, sensation intact Psych: Appropriate mood and affect Neuro: no focal deficits Skin: No rash IVs and Medications Medications Reviewed: Medications were reviewed in detail Lab and Diagnostics Result Diagram: 02/07/17 0130 02/07/17 0750 X-Rays, CTs and MRIs CT abdomen/pelvis 1. New segmental wall thickening involving the mid small bowel, with associated segmental inflammatory fat stranding of the associated mesentery. Finding may represent localized infectious process, versus an unusual presentation of small bowel ischemia. 2. Status post left hepatectomy, with small postoperative fluid collection unchanged. Small perihepatic ascites has slightly increased in size 3. Descending and sigmoid colon diverticulosis, without acute diverticulitis. 4. Incidental small right adrenal adenoma is unchanged 5. 3.6 cm short segment abdominal aortic aneurysm is unchanged. 6. 2.9 cm dependent mobile lumbar stone is again noted 7. Small bilateral fat-containing inguinal hernias as before. Dictated by: Ralf Pinto M.D. 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 Typhilitis (neutropenic enterocolitis) in the setting of neutropenia; present on admission; ongoing- -Patient presents with abdominal pain with severe palpatory tenderness and pancytopenia; small bowel edema concerning for infection versus ischemia, low suspicion for ischemia as there is no GI bleed -Neutrophil count around 600 at admission, now improving-->1500, may not need precautions soon -Patient spiked a fever upon arriving to the floor, Blood cultures taken prior to that f/u CT abd with IV contrast which did not show any new findings but confirmed there is no perforation. -Consulted GI also for possible infectious enteritis: They recommend the CMV- pending, IgG- normal and IgM- normal in addition to stool PCR(neg). -Patient has heart failure, we will gently resuscitated with normal saline - ID consulted, Dr. Castro. Will c/w Meropenam until more improvement and can tolerate PO diet, then switch to a combination of Cipro and Flagyl to complete a 14 day course of therapy.Loose Stools- f/u C.Diff, likely related to Chemo or Typhiliits. Surgery Consulted- Dr. Whitehead. Serial AXR to rule out free air or bowel distention have been negative so far. Will advance diet if 02/08 AXR is stable. Pancytopenia secondary to ongoing capecitabine use; is on admission; ongoing -Patient receiving medication for ongoing cholangiocarcinoma treatment -Called ONC, Dr. Ford regional director of admissions, states Dr. Cash already discussed case with him as DR. Stevens is away. Dr. Ford will see the patient. One dose of Granix in ED per Dr. Cash. Further doses pending oncology recommendation. -Neutropenia precautions -Held night dose of capecitabine - Per 02/07 Onc Note- Dr. Ford- - Dr. Cash 02/08 Note- suspect that this is most likely related to capecitabine toxicity and that the patient, if he does continue on capecitabine , will have to have an adjusted dose Chronic HFpEF; present admission; ongoing -Last echo was in July and showed ejection fraction of 40-45% -Continue home medications as there is no evidence of end organ damage due to heart failure -Do not see ARB; patient allergic to lisinopril -Discontinued the IV Lasix, held spironolactone. Cont torsemide. Plan to add these back in as he recovers more. Hyperglycemia; present admission; ongoing -Blood glucose on presentation was 157 -A1c ordered -NPO diet -We will monitor for need for insulin Tachycardia with AICD pacer-continue amiodarone and metoprolol. Hyperlipidemia-hold simvastatin CAD-nitroglycerin sublingual and aspirin Disposition: Patient is being admitted to inpatient status with expected length of stay greater than two midnights due to to severity of presentation, duration of treatment, and risks of adverse events disposition Full code, ADM Pain Evaluation: Adequate Pain Control Resuscitation Status: CPR: Attempt Resuscitation VTE Mechanical Devices: Intermittant Pneumatic CD Resuscitation Status: CPR: Attempt Resuscitation Syed Long MD Feb 08, 2017 10:50 -NPO diet -We will monitor for need for insulin Tachycardia with AICD pacer-continue amiodarone and metoprolol Hyperlipidemia-hold simvastatin CAD-nitroglycerin sublingual and aspirin Disposition: Patient is being admitted to inpatient status with expected length of stay greater than two midnights due to to severity of presentation, duration of treatment, and risks of adverse events disposition Full code, ADM Pain Evaluation: Adequate Pain Control Resuscitation Status: CPR: Attempt Resuscitation VTE Mechanical Devices: Intermittant Pneumatic CD Resuscitation Status: CPR: Attempt Resuscitation
[2017-02-08] MEDS ORDERED: 0.9% Sodium Chloride 250 ML ONE (11:06)
--- NOTE | 2017-02-08 11:20 | PROG NOTE ---
[address] [address] PROGRESS NOTE PATIENT: MARGARETH LOCKETT : 1935 MR#: [id number] ADMIT: 02/05/2017 JOB ID: [id number] DATE: 02/08/2017 INFECTIOUS DISEASE FOLLOW UP NOTE: REASON FOR FOLLOWUP: Probable typhilitis. INTERVAL HISTORY: The patient reports he is gradually improving. He still has some degree of abdominal pain especially in the right lower quadrant but it is diminishing. He is now taking clear liquids and tolerating that fairly well and may soon be advanced to other foods. He is having no fevers or chills. PHYSICAL EXAMINATION: Reveals an afebrile gentleman. He has been afebrile since the first day of his admission back on February 05. His current temperature 36.4, pulse 76, respiratory rate 20, blood pressure 100/65, saturating well on room air. He is awake, alert, in no acute distress. Oral cavity without change. Lungs clear. Cardiac tones without new murmur. Abdomen continues to be distended with some right lower quadrant tenderness. No skin rash. LABORATORIES: Include white count 8300 yesterday. It has not been repeated today. Creatinine 0.89. CMV serologies are negative, excluding that as a possibility. MRSA screen negative. Stool PCR panel negative and blood cultures negative. An abdominal flat plate x-ray today show persistent dilated loops of small bowel with increased gas in the large bowel which may indicate improving small bowel obstruction according to the radiologist. IMPRESSION: This patient likely had typhilitis which is improving. I note that Dr. Cash also believes that chemotherapy induced bowel toxicity due to capecitabine may have played a role as well. At any rate, the patient seems to be improving and is no longer neutropenic. RECOMMENDATIONS: 1. I would continue with meropenem until the patient is somewhat better, which will likely happen here in the next day or two. 2. Once he is taking a regular diet and getting close to being going home, he could be sent out on a combination of oral ciprofloxacin plus Flagyl to complete a 10-14 day course of therapy. 3. ID will go ahead and sign off at this time as there are no active ID issues in this rapidly improving gentleman.
--- NOTE | 2017-02-08 13:38 | NUR ---
GI / cough Pt has had two episodes of diarrhea this afternoon. Pt is aware that antidiarrheal medication should not be administered. Dr Whitehead discussed this with pt this a.m. Pt also understands that the IV antibiotics may be contributing to his diarrhea. Pt also reported this afternoon that he is coughing. Cough is productive and sputum is white. Will continue to monitor.
--- NOTE | 2017-02-08 14:55 | PCM.PNSURG ---
Subjective Date of Service: Feb 08, 2017 Date of Service: Feb 08, 2017 Visit Information: Reason for Visit Enteritis,Neutropena Surgery/Surgery Date Post-Op Day # Date of Admission: Feb 05, 2017 at 15:33 Hospital Day # Subjective: Gastroenterology Progress Note No acute events overnight. Patient continues to have some mild right lower quadrant abdominal pain. He is tolerating clear liquids without nausea or vomiting. He denies any fever, chills, or night sweats. No further complaints. Objective Vital Sign- Last 8 Hours Date Time Temp Pulse Resp B/P Pulse Ox O2 Delivery O2 Flow Rate FiO2 02/08/17 13:16 36.5 75 18 104/72 94 Room Air 02/08/17 10:46 76 02/08/17 09:25 36.4 85 20 100/65 Room Air Intake and Output- Last 8 Hour 02/08/17 Cumulative From/Thru 07:00 02/05/17 12:13 - 02/08/17 06:32 Intake Total 1591 ml 4413 ml Output Total 340 ml 3475 ml Balance 1251 ml 938 ml Intake Oral 600 ml 1700 ml IV Total 991 ml 2713 ml Output Urine Total 340 ml 3075 ml Stool Total 100 ml Urine/Stool Mix 300 ml # Voids 1 # Bowel Movements 1 9 General: Alert, Oriented X3, No Acute Distress Neck: Supple Lungs: Clear to Auscultation Heart: Regular Rate/Rhythm Abdomen: Benign, Soft, Appropriately tender (mild tenderness in the right lower quadrant but improved from prior exams), Normoactive bowel tones Extremities: Distal Pulses Palpable, Warm Neuro: Cranial Nerves 2-12 nl Catheters: None Result Diagram: 02/07/17 0130 02/07/17 0750 Assessment & Plan Impression This is a 81-year-old male with a history of cholangiocarcinoma of the left lobe of the liver status post resection two months ago, on Xeloda, history of myocardial infarction x2, aortic stenosis status post valve placement , congestive heart failure with ejection fraction 40%, ventricular tachycardia, currently has a dual chamber automatic implantable cardioverter-defibrillator placement on amiodarone, sleep apnea, cholecystectomy, who presents for consultation for abdominal pain, fevers, chills at this point in time, and abdominal distention. On admission patient had an acute abdomen with rebound tenderness. Today abdominal exam and continues to improve with only mild right lower quadrant tenderness. At this time oncology and infectious disease believe patient's symptoms are secondary to typhlitis in combination with recent chemotherapy with capecitabine. At this time they both would like to continue with meropenem for another day or 2 and continue to monitor closely. RECOMMENDATIONS: 1. Continue to appreciate recommendations from infectious disease, oncology, and general surgery. 2. Patient tolerating clear liquids without nausea or vomiting. Advance diet as tolerated. 3. Stool studies negative and CMV IgG and IgM antibodies negative. 4. Continue serial abdominal exams. Significant improvement at this time from admission. 5. We will continue broad-spectrum antibiotics with meropenem. Per Dr. Castro 's note this may be transitioned to a combination of Cipro and Flagyl to complete a 14 day course in the next day or 2. 6. Patient received a dose of Granix yesterday afternoon per Dr. Ford's request. White blood cell with appropriate rise following. Thank you for involving us in the patient's care. We will continue to follow. Problems: Resuscitation Status: CPR: Attempt Resuscitation SHAYY LEIVA DO Feb 08, 2017 14:55
--- NOTE | 2017-02-08 21:14 | NUR ---
BP Held Lopressor 12.5mg, due to manual BP sitting of 92/62 X2. Manual P 74. Night hospitalist notified. No new orders at this time. No CP, no pain/N/V. Continue cares.
[2017-02-09] VITALS (8 sets, daily range): BP systolic 93–118; BP diastolic 58–81; PULSE 61–90; RESP 16–18; O2SAT 94–100
[2017-02-09] MEDS: Meropenem Inj 1,000 MG in 0.9% Sodium Chloride 100 ML IV SCH ×3 (01:12→16:44)
--- NOTE | 2017-02-09 04:13 | NUR ---
BM/O2 Pt placed on 2L NC over night due to desat to high 80's. Pt uses cpap at home. Sats on 2L range from low to mid 90's. Pt has been OOB X 4 to BR for diarrhea this shift. BP remains low over night at: low 90's systolic to low 60's diastolic, taken with manual BP on wall by RN. aware.
[2017-02-09] MEDS: D5 0.45% NaCl + KCl 20 mEq/L 1,000 ML IV SCH ×2 (06:43→19:40)
[2017-02-09] MEDS: PrednisoLONE 1% 1 mL Ophthalmic Suspension LEFT_EYE SCH (08:36)
[2017-02-09 10:00] LABS: Magnesium 1.9 mg/dL (1.6-2.6)
[2017-02-09 10:15] LABS: Mean Corpuscular Hemoglobin 26.1 pg (27.0-35.0); Mean Corpuscular Volume 85.9 fL (81-100)
[2017-02-09 10:16] LABS: BASOPHILS % (AUTO) 1 % (0-3); EOSINOPHILS % (AUTO) 0 % (0-5); MONOCYTES % (AUTO) 10 % (4-12); NEUTROPHILS % (AUTO) 59 % (40-74); Platelet Count 61 bil/L (150-400)
--- NOTE | 2017-02-09 11:00 | PCM.PNSURG ---
Subjective Date of Service: Feb 09, 2017 Date of Service: Feb 09, 2017 Visit Information: Reason for Visit Enteritis,Neutropena Surgery/Surgery Date Post-Op Day # Date of Admission: Feb 05, 2017 at 15:33 Hospital Day # Subjective: Gastroenterology Progress Note No acute events overnight. Patient denies any ongoing abdominal pain. He is currently having some diarrhea but he believes this is due to his liquid diet. He was advanced morning to soft. He is tolerating his eggs and yogurt without difficulty. No other complaints or concerns. Objective Vital Sign- Last 8 Hours Date Time Temp Pulse Resp B/P Pulse Ox O2 Delivery O2 Flow Rate FiO2 02/09/17 08:50 90 105/72 Room Air 02/09/17 08:00 79 02/09/17 06:20 36.4 85 18 101/71 100 Nasal Cannula 2.00 Intake and Output- Last 8 Hour 02/09/17 Cumulative From/Thru 07:00 02/05/17 12:13 - 02/09/17 06:53 Intake Total 1153 ml 7483 ml Output Total 950 ml 5450 ml Balance 203 ml 2033 ml Intake Oral 200 ml 2580 ml IV Total 953 ml 4903 ml Output Urine Total 950 ml 5050 ml Stool Total 100 ml Urine/Stool Mix 300 ml # Voids 2 3 # Bowel Movements 5 14 General: Alert, Oriented X3, No Acute Distress Neck: Supple Lungs: Clear to Auscultation Heart: Regular Rate/Rhythm Abdomen: Benign, Soft, Non-tender, Normoactive bowel tones Extremities: Distal Pulses Palpable, Warm Neuro: Cranial Nerves 2-12 nl, Grossly Neurologically Intact Catheters: None Result Diagram: 02/09/17 0920 02/09/17 0920 Assessment & Plan Impression This is a 81-year-old male with a history of cholangiocarcinoma of the left lobe of the liver status post resection two months ago, on Xeloda, history of myocardial infarction x2, aortic stenosis status post valve placement , congestive heart failure with ejection fraction 40%, ventricular tachycardia, currently has a dual chamber automatic implantable cardioverter-defibrillator placement on amiodarone, sleep apnea, cholecystectomy, who presents for consultation for abdominal pain, fevers, chills at this point in time, and abdominal distention. On admission patient had an acute abdomen with rebound tenderness. Today abdominal exam and continues to improve with only mild right lower quadrant tenderness. At this time oncology and infectious disease believe patient's symptoms are secondary to typhlitis in combination with recent chemotherapy with capecitabine. At this time they both would like to continue with meropenem for another day or 2 and continue to monitor closely. RECOMMENDATIONS: 1. Continue to appreciate recommendations from infectious disease, oncology, and general surgery. 2. Patient tolerating soft diet this morning without nausea or vomiting. Advance diet as tolerated. 3. Stool studies negative and CMV IgG and IgM antibodies negative. 4. Abdominal exam completely benign. 5. We will continue broad-spectrum antibiotics with meropenem. Per Dr. Castro 's note this may be transitioned to a combination of Cipro and Flagyl to complete a 14 day course in the next day or 2. 6. Patient received a dose of Granix on 02/07/[address] Ford's request. White blood cell with appropriate rise following, now trending down. GI will sign off at this time. Please do not hesitate to contact if any additional questions arise. Problems: Resuscitation Status: CPR: Attempt Resuscitation SHAYY LEIVA DO Feb 09, 2017 11:00
--- NOTE | 2017-02-09 14:50 | PCM.PNMED ---
Subjective Date of Service Feb 09, 2017 Subjective Pt reports minimal abd pain with less distention. Had small BM this AM. Loose stools resolved. Pt feels ready to advance diet. Exam Vital Signs Vital Sign - Last Date Time Temp Pulse Resp B/P Pulse Ox O2 Delivery O2 Flow Rate FiO2 02/09/17 13:15 36.9 66 18 118/81 96 Room Air 02/09/17 06:20 2.00 Intake and Output 02/08/17 02/08/17 02/09/17 Cumulative From/Thru 15:00 23:00 07:00 02/05/17 12:13 - 02/09/17 06:53 Intake Total 121 ml 1796 ml 1153 ml 7483 ml Output Total 1025 ml 950 ml 5450 ml Balance 121 ml 771 ml 203 ml 2033 ml Intake Oral 680 ml 200 ml 2580 ml IV Total 121 ml 1116 ml 953 ml 4903 ml Output Urine Total 1025 ml 950 ml 5050 ml Stool Total 100 ml Urine/Stool Mix 300 ml # Voids 2 3 # Bowel Movements 5 14 Exam General: Age-appropriate male HEENT: EOMI, nonicteric, membranes moist; JVD on exam Cardio: Regular rate and rhythm no murmurs rubs or gallops Respiratory: CTA bilaterally, no wheezes, no crackles Abdomen: Normal bowel sounds, +abd distention- imp, Well healed surgical incisions. Extremities: No edema, sensation intact Psych: Appropriate mood and affect Neuro: no focal deficits Skin: No rash IVs and Medications Medications Reviewed: Medications were reviewed in detail Lab and Diagnostics Result Diagram: 02/09/1791902/09/17 0920 X-Rays, CTs and MRIs CT abdomen/pelvis 1. New segmental wall thickening involving the mid small bowel, with associated segmental inflammatory fat stranding of the associated mesentery. Finding may represent localized infectious process, versus an unusual presentation of small bowel ischemia. 2. Status post left hepatectomy, with small postoperative fluid collection unchanged. Small perihepatic ascites has slightly increased in size 3. Descending and sigmoid colon diverticulosis, without acute diverticulitis. 4. Incidental small right adrenal adenoma is unchanged 5. 3.6 cm short segment abdominal aortic aneurysm is unchanged. 6. 2.9 cm dependent mobile lumbar stone is again noted 7. Small bilateral fat-containing inguinal hernias as before. Dictated by: Ralf Pinto M.D. 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 Typhilitis (neutropenic enterocolitis) in the setting of neutropenia; present on admission; ongoing- -Patient presents with abdominal pain with severe palpatory tenderness and pancytopenia; small bowel edema concerning for infection versus ischemia, low suspicion for ischemia as there is no GI bleed -Neutrophil count around 600 at admission, now improving-->1500, may not need precautions soon -Patient spiked a fever upon arriving to the floor, Blood cultures taken prior to that f/u CT abd with IV contrast which did not show any new findings but confirmed there is no perforation. -Consulted GI also for possible infectious enteritis: They recommend the CMV- pending, IgG- normal and IgM- normal in addition to stool PCR(neg). -Patient has heart failure, we will gently resuscitated with normal saline - ID consulted, Dr. Castro. Will c/w Meropenam until more improvement and can tolerate PO diet, then switch to a combination of Cipro and Flagyl to complete a 14 day course of therapy.Loose Stools- f/u C.Diff, likely related to Chemo or Typhiliits. Surgery Consulted- Dr. Whitehead. Serial AXR to rule out free air or bowel distention have been negative so far. Will advance diet today as tolerated. Pancytopenia secondary to ongoing capecitabine use; is on admission; ongoing -Patient receiving medication for ongoing cholangiocarcinoma treatment -Called ONC, Dr. Ford coordinator of evaluation, states Dr. Cash already discussed case with him as DR. Stevens is away. Dr. Ford will see the patient. One dose of Granix in ED per Dr. Cash. Further doses pending oncology recommendation. -Neutropenia precautions -Held night dose of capecitabine - Per 02/07 Onc Note- Dr. Ford- - Dr. Cash 02/08 Note- suspect that this is most likely related to capecitabine toxicity and that the patient, if he does continue on capecitabine , will have to have an adjusted dose Chronic HFpEF; present admission; ongoing -Last echo was in July and showed ejection fraction of 40-45% -Continue home medications as there is no evidence of end organ damage due to heart failure -Do not see ARB; patient allergic to lisinopril -Discontinued the IV Lasix, Cont torsemide. Added Spirinolactone back. Hyperglycemia; present admission; ongoing -Blood glucose on presentation was 157 -A1c ordered -NPO diet -We will monitor for need for insulin Tachycardia with AICD pacer-continue amiodarone and metoprolol. Hyperlipidemia-hold simvastatin CAD-nitroglycerin sublingual and aspirin Disposition: Patient is being admitted to inpatient status with expected length of stay greater than two midnights due to to severity of presentation, duration of treatment, and risks of adverse events disposition Full code, ADM - Follow up with Dr. Cash, oncology, next week. - Continue Antibiotics Cipro and Flagyl to complete a 14 day course of therapy - Can resume Lasix. VTE Mechanical Devices: Intermittant Pneumatic CD Resuscitation Status: CPR: Attempt Resuscitation Syed Long MD Feb 09, 2017 14:49
[2017-02-09] MEDS ORDERED: Potassium Chloride 20 mEq SR Tablet PO ONE (15:10)
--- NOTE | 2017-02-09 15:11 | PCM.PNSURG ---
Subjective Date of Service: Feb 09, 2017 Visit Information: Reason for Visit Enteritis,Neutropena Surgery/Surgery Date Post-Op Day # Date of Admission: Feb 05, 2017 at 15:33 Hospital Day # Subjective: No acute overnight events Continues to report that he feels well and is only experiencing minimal abdominal pain No nausea or vomiting, and is tolerating FLD Numerous loose stools yesterday Feels hungry Objective Vital Sign- Last 8 Hours Date Time Temp Pulse Resp B/P Pulse Ox O2 Delivery O2 Flow Rate FiO2 02/09/17 13:15 36.9 66 18 118/81 96 Room Air 02/09/17 08:50 90 105/72 Room Air 02/09/17 08:00 79 Intake and Output- Last 8 Hour 02/09/17 Cumulative From/Thru 07:00 02/05/17 12:13 - 02/09/17 06:53 Intake Total 1153 ml 7483 ml Output Total 950 ml 5450 ml Balance 203 ml 2033 ml Intake Oral 200 ml 2580 ml IV Total 953 ml 4903 ml Output Urine Total 950 ml 5050 ml Stool Total 100 ml Urine/Stool Mix 300 ml # Voids 2 3 # Bowel Movements 5 14 General: Alert, Cooperative, No Acute Distress Neck: Supple Lungs: Normal Air Movement Abdomen: Soft, Non-tender, Other (Moderately distended, improved from yesterday ) Extremities: Warm Neuro: Grossly Neurologically Intact Result Diagram: 02/09/17 0920 02/09/17 0920 Assessment & Plan Impression 81M now 2 months s/p laparoscopic left segmentectomy for intrahepatic cholangiocarcinoma currently undergoing adjuvant chemotherapy who presented with peritonitis and thickened small bowell on axial imaging in the setting of neutropenia. His abdominal exam has improved, he is feeling well, and passing loose stool. His WBC normalized after filgrastim but has downtrend 8-->5. Problems: Plan - No indication for surgical intervention at this time - Continue slow dietary advancement - Continue antibiosis - Appreciate GI, ID, and primary medicine team's care. Resuscitation Status: CPR: Attempt Resuscitation Bud Castañeda MD Feb 09, 2017 15:11
--- NOTE | 2017-02-09 17:45 | NUR ---
Social Work- Readiness for D/C/Multidisciplinary Rounds Data: EMR Reviewed. Pt is on day 4 of hospitalization for enteritis, neutropenia per H&P. Pt discussed in multidisciplinary rounds. Pt is likely to d/c tomorrow. SW met with pt at bedside, pt is excited to d/c home. No discharge needs identified. Pt is independent at baseline. Pt to d/c home with his spouse to transport via POV. SW will continue to follow. Assessment: Pt who is independent at baseline. Plan: Pt is independent at baseline. Pt to d/c home with his spouse to transport via POV. SW will continue to follow. Pita Nelson MSW
[2017-02-09 20:08] LABS: CMV PCR Negative (Negative)
[2017-02-10] MEDS: Meropenem Inj 1,000 MG in 0.9% Sodium Chloride 100 ML IV SCH ×2 (01:25→09:15)
--- NOTE | 2017-02-10 05:19 | NUR ---
Activity Pt OOB Ind to BR X 3 this shift for brown diarrhea. Placed on 2-3L NC over night for desats to 80's on RA. Pt wears cpap at night at home. CPOX with O2 high 90's. No pain this shift. orders to be SL when antibiotics are not running. Pt diet adv to general. Tolerated chicken fajita for dinner last night per pt.
[2017-02-10 05:30] VITALS: BP 94/61; PULSE 87; RESP 16; O2SAT 99
[2017-02-10] MEDS: D5 0.45% NaCl + KCl 20 mEq/L 1,000 ML IV SCH (09:00)
[2017-02-10 09:09] VITALS: BP 90/60; PULSE 79; RESP 17; O2SAT 92
[2017-02-10] MEDS: PrednisoLONE 1% 1 mL Ophthalmic Suspension LEFT_EYE SCH (09:15)
--- NOTE | 2017-02-10 10:56 | PCM.PNSURG ---
Subjective Date of Service: Feb 10, 2017 Date of Service: Feb 10, 2017 Visit Information: Reason for Visit Enteritis,Neutropena & PSBO Surgery/Surgery Date Post-Op Day # Date of Admission: Feb 05, 2017 at 15:33 Hospital Day # 6 Subjective: No acute overnight events without significant pain, nausea, or vomiting. He is tolerating general diet and having loose stools. Attending Hospitalist are planning on discharging in stable condition today. Postop General: No Complaints Gastrointestinal: Good Appetite, Passing Stool Pain Management: No or Minimal Pain Objective Vital Sign- Last 8 Hours Date Time Temp Pulse Resp B/P Pulse Ox O2 Delivery O2 Flow Rate FiO2 02/10/17 09:09 36.2 79 17 90/60 92 Room Air 02/10/17 05:30 36.4 87 16 94/61 99 Nasal Cannula 2.00 Intake and Output- Last 8 Hour 02/10/17 Cumulative From/Thru 07:00 02/05/17 12:13 - 02/10/17 06:38 Intake Total 1091 ml 81049 ml Output Total 5875 ml Balance 1091 ml 4578 ml Intake Oral 980 ml 4536 ml IV Total 111 ml 5917 ml Output Urine Total 5475 ml Stool Total 100 ml Urine/Stool Mix 300 ml # Voids 3 6 # Bowel Movements 2 18 General: Alert, Cooperative, No Acute Distress Lungs: Clear to Auscultation Heart: Exam Unremarkable Abdomen: Soft, Non-tender, Non-distended Extremities: Thigh&Calf Soft/Nontender Neuro: Normal Speech Result Diagram: 02/09/17 0920 02/09/17 0920 Assessment & Plan Impression Primary Diagnoses: 1. Peritonitis Resolved 2. Partial small bowel obstruction Improved 3. Neutropenia Improved 4. Status Post laparoscopic left segmentectomy for intrahepatic cholangiocarcinoma Other Past Medical & Surgical History: Mixed hyperlipidemia Restless leg syndrome Ventricular tachycardia Implantable cardioverter defibrillator Sinus bradycardia Right ventricular aneurysm Chronic hypotension Chronic heart failure Coronary artery disease Obstructive sleep apnea Dyspnea Headache History of aortic valve replacement Edema Problems: Plan The patient is stable for discharge from a General Surgery standpoint; therefore we will sign off after discussing with the Attending Hospitalist. Resuscitation Status: CPR: Attempt Resuscitation Wallace Del Rio PA-C Feb 10, 2017 10:56
--- NOTE | 2017-02-10 11:50 | NUR ---
Social Work: Discharge/Multidisciplinary Rounds D: EMR Reviewed. Pt is on day 5 of hospitalization for enteritis, neutropenia per H&P. Pt discussed in multidisciplinary rounds. Per multidisciplinary rounds, pt is medically stable for discharge home today. No discharge needs identified. No MD orders received. Pt is independent at baseline. Pt to discharge home with his spouse to transport via POV. SW will continue to follow. A: Pt who is independent at baseline. P: No discharge needs identified. No MD orders received. Pt is independent at baseline. Pt to discharge home with his spouse to transport via POV. SW will continue to follow until time of discharge. SUSY Mena
[2017-02-10] MEDS ORDERED: METR500T PO (12:43)
[2017-02-10] MEDS ORDERED: CIPR-198 PO (12:43)
--- NOTE | 2017-02-10 12:46 | PCM.DC.MED ---
Discharge Summary Date of Service Feb 10, 2017 Dates of Hospitalization Date of Hospital Admission Feb 05, 2017 at 15:33 Date of Discharge: Feb 10, 2017 Providers: Admitting Physician: Eloina Cevallos DO Primary Care Physician: Jorge Xie MD Attending Physician: Syed Long MD Procedures XRay, CTs & MRIs CT abdomen/pelvis 1. New segmental wall thickening involving the mid small bowel, with associated segmental inflammatory fat stranding of the associated mesentery. Finding may represent localized infectious process, versus an unusual presentation of small bowel ischemia. 2. Status post left hepatectomy, with small postoperative fluid collection unchanged. Small perihepatic ascites has slightly increased in size 3. Descending and sigmoid colon diverticulosis, without acute diverticulitis. 4. Incidental small right adrenal adenoma is unchanged 5. 3.6 cm short segment abdominal aortic aneurysm is unchanged. 6. 2.9 cm dependent mobile lumbar stone is again noted 7. Small bilateral fat-containing inguinal hernias as before. Dictated by: Ralf Pinto M.D. on 02/05/2017 at 14:38 Brief History Per HPI on 02/05/[address] Loo 81-year-old male with recent history of left lobe liver mass identified as cholangiocarcinoma s/p lobe resection undergoing treatment with capecitabine, history of 2 myocardial infarctions, aortic stenosis s/p replacement with bioprosthetic valve, systolic heart failure with ejection fraction of 40%, and ventricular tachycardia/P dual-chamber AICD placement on long-term amiodarone presents to emergency department today due to 2 days of increasing abdominal pain with associated weakness. Patient states that the pain started upon awakening yesterday and he has been unable to move without extreme exertion between his bed to the car. Patient also endorses fever, chills, nausea with 1 bout of emesis, and associated dizziness but denies diarrhea, chest pain, shortness of breath, changes in mental status, or anorexia. Emergency room patient was given Zosyn and Flagyl and [address] of the abdomen and pelvis showed no segmental wall thickening of the mid small bowel suspicious for infection but differential also includes small bowel ischemia. There are numerous findings on the CT although the other financing to be chronic and unchanged. Patient was also found to be pancytopenic with a neutrophil count of approximately 600. 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 Typhilitis (neutropenic enterocolitis) in the setting of neutropenia; present on admission; ongoing- -Patient presents with abdominal pain with severe palpatory tenderness and pancytopenia; small bowel edema concerning for infection versus ischemia, low suspicion for ischemia as there is no GI bleed -Neutrophil count around 600 at admission, now improving-->1500, may not need precautions soon -Patient spiked a fever upon arriving to the floor, Blood cultures taken prior to that f/u CT abd with IV contrast which did not show any new findings but confirmed there is no perforation. -Consulted GI also for possible infectious enteritis: They recommend the CMV- pending, IgG- normal and IgM- normal in addition to stool PCR(neg). -Patient has heart failure, we will gently resuscitated with normal saline - ID consulted, Dr. Castro. Will c/w Meropenam until more improvement and can tolerate PO diet, then switch to a combination of Cipro and Flagyl to complete a 14 day course of therapy.Loose Stools- f/u C.Diff, likely related to Chemo or Typhiliits. Surgery Consulted- Dr. Whitehead. Serial AXR to rule out free air or bowel distention have been negative. Diet advanced. Stable for discharge. Pancytopenia secondary to ongoing capecitabine use; is on admission; ongoing -Patient receiving medication for ongoing cholangiocarcinoma treatment -Called ONC, Dr. Ford rehabilitation technician, states Dr. Cash already discussed case with him as DR. Stevens is away. Dr. Ford will see the patient. One dose of Granix in ED per Dr. Cash. Further doses pending oncology recommendation. -Neutropenia precautions -Held night dose of capecitabine - Per 02/07 Onc Note- Dr. Ford- - Dr. Cash 02/08 Note- suspect that this is most likely related to capecitabine toxicity and that the patient, if he does continue on capecitabine , will have to have an adjusted dose Chronic HFpEF; present admission; ongoing -Last echo was in July and showed ejection fraction of 40-45% -Continue home medications as there is no evidence of end organ damage due to heart failure -Do not see ARB; patient allergic to lisinopril -Discontinued the IV Lasix, Cont torsemide. Added Spirinolactone back. Hyperglycemia; present admission; ongoing -Blood glucose on presentation was 157 -A1c 5.8 Tachycardia with AICD pacer-continue amiodarone and metoprolol. Hyperlipidemia-hold simvastatin CAD-nitroglycerin sublingual and aspirin Disposition: - Continue Antibiotics Cipro and Flagyl to complete a 14 day course of therapy until 02/19. - Can resume all home meds except do not take Loperamide for loose stools. - Follow up with Dr. Cash, oncology, next week. - Follow up with Dr. Santos regarding optimizing heart failure medications. Exam Vital Signs (Last) Date Time Temp Pulse Resp B/P Pulse Ox O2 Delivery O2 Flow Rate FiO2 02/10/17 09:09 36.2 79 17 90/60 92 Room Air 02/10/17 05:30 2.00 Test 02/05/17 12:10 02/05/17 15:16 02/05/17 15:48 02/05/17 22:53 Hematology Comments Prothrombin Time 11.3sec (8.1-12.5) Prothromb Time International Ratio 1.05ratio Hemoglobin A1c 5.8% (4.8-5.6) Troponin T < 0.010ug/L (0.0-0.011) Pro-B-Type Natriuretic Peptide 1443pg/mL (0-486) Lipase 27U/L (13-60) Urine Color Yellow (YELLOW) Urine Appearance Clear (CLEAR,HAZY) Urine pH 5.5 (5.0-8.0) Urine Specific [place] 1.030 (1.003-1.035) Urine Protein Tracemg/dL (NEG,TRACE) Urine Glucose (UA) Negativemg/dL (NEGATIVE) Urine Ketones Tracemg/dL (NEGATIVE) Urine Occult Blood Negative (NEGATIVE) Urine Nitrite Negative (NEGATIVE) Urine Bilirubin Negative (NEGATIVE) Urine Urobilinogen Normalmg/dL (NORMAL) Urine Leukocyte Esterase Negative (NEGATIVE) Urine RBC 0-2/hpf (0-2) Urine WBC 0-5/hpf (0-5) Urine Epithelial Cells Few/hpf (NONE-MOD) Urine Crystals None seen (NONE SEEN) Urine Bacteria Few/hpf (NONE-FEW) Urine Hyaline Casts None/lpf (NONE) Urine Granular Casts None seen (NONE SEEN) Urine Waxy Casts None seen (NONE SEEN) Urine Red Blood Cell Casts None seen (NONE SEEN) Urine White Blood Cell Casts None seen (NONE SEEN) Urine Mucus Present (None Seen) Urine Trichomonas None seen (NONE SEEN) Urine Yeast None (NONE SEEN) Urinalysis Comment None Urine Culture Reflexed Not indicated Hold Urine Received (Received) Cytomegalovirus DNA Qual (PCR) Negative (Negative) Test 02/06/17 05:20 02/09/17 09:20 Lactic Acid Level 1.8mmol/L (0.4-2.0) Phosphorus Level 3.1mg/dL (2.5-4.9) Procalcitonin 3.43ng/mL (0.00-0.08) Thyroid Stimulating Hormone (TSH) 1.050uIU/mL (0.450-4.500) Cytomegalovirus IgG Antibody <0.60U/mL (0.00-0.59) Cytomegalovirus IgM Antibody <30.0AU/mL (0.0-29.9) White Blood Count 5.3th/mm3 (3.8-10.1) Red Blood Count 4.17mil/mm3 (4.40-5.80) Hemoglobin 10.9g/dL (13.8-17.2) Hematocrit 35.8% (41.0-50.0) Mean Corpuscular Volume 85.9fL (81-100) Mean Corpuscular Hemoglobin 26.1pg (27.0-35.0) Mean Corpuscular Hemoglobin Concent 30.4% (32.0-37.0) Red Cell Distribution Width 25.3% (12.3-15.4) Platelet Count 61bil/L (150-400) Neutrophils (%) (Auto) 59% (40-74) Lymphocytes (%) (Auto) 21% (14-46) Monocytes (%) (Auto) 10% (4-12) Eosinophils (%) (Auto) 0% (0-5) Basophils (%) (Auto) 1% (0-3) Band Neutrophils % 4% (1-5) Metamyelocytes % 2% (0-0) Myelocytes % 3% (0-0) Sodium Level 139mEq/L (134-144) Potassium Level 3.3mEq/L (3.5-5.2) Chloride Level 102mEq/L (97-108) Carbon Dioxide Level 22mmol/L (18-29) Blood Urea Nitrogen 8mg/dL (8-27) Creatinine 0.94mg/dL (0.76-1.27) Estimat Glomerular Filtration Rate 82mL/min (>59) Glucose Level 116mg/dL (60-99) Calcium Level 7.6mg/dL (8.5-10.1) Magnesium Level 1.9mg/dL (1.6-2.6) Total Bilirubin 1.0mg/dL (0.0-1.2) Aspartate Amino Transf (AST/SGOT) 28U/L (0-50) Alanine Aminotransferase (ALT/SGPT) 23U/L (0-44) Alkaline Phosphatase 76U/L (25-160) Total Protein 4.9g/dL (6.4-8.4) Albumin 3.0g/dL (3.4-5.0) Discharge Medications Discharge Medications Acyclovir (Acyclovir) 400 Mg Tablet 400 MG PO BID (Reported) Amiodarone (Amiodarone) 200 Mg Tablet 200 MG PO DAILY (Reported) Aspirin (Aspirin) 81 Mg Tablet 81 MG PO DAILY (Reported) Capecitabine (Xeloda) 500 Mg Tablet 1,500 MG PO BID DYS1-14 Q21DYS (Reported) 2 WKS ON 0NE WK OFF Cyclosporine (Restasis) 1 Each Droperette 1 EACH BOTH_EYES BID (Reported) Loperamide/Simethicone (Imodium Multi-Symptom Rel Cplt) 1 Each Tablet 2 EACH PO AFTER EACH LOOSE (Reported) Take 2 tablets orally with first loose stool, and one tablet 2 mg orally, after each next bowel movement, do not exceed 16 mg in 24 hours. Metoprolol Tartrate (Metoprolol Tartrate) 25 Mg Tablet 12.5 MG PO BID (Reported ) Prednisolone Acetate (Prednisolone Acetate) 5 Ml Drops.susp 1 GTT LEFT_EYE QAM ( Reported) Simvastatin (Simvastatin) 40 Mg Tablet 20 MG PO HS (Reported) Spironolactone (Spironolactone) 25 Mg Tablet 25 MG PO DAILYWL (Reported) Torsemide (Torsemide) 10 Mg Tablet 10 MG PO DAILY (Reported) As needed Nitroglycerin SL (Nitroglycerin SL) 0.4 Mg Tab.subl 0.4 MG SL Q5MIN PRN PRN For Chest Pain (Reported) Ondansetron (Ondansetron) 8 Mg Tablet 8 MG PO q6 hours PRN PRN For Nausea ( Reported) Prochlorperazine Maleate (Prochlorperazine) 10 Mg Tablet 10 MG PO q4 hours PRN PRN For Nausea (Reported) Followup Plan Disposition: [place] Syed Long MD Feb 10, 2017 12:46
--- NOTE | 2017-02-10 12:48 | PCM.DIMED ---
Discharge Instructions Date of Service Feb 10, 2017 Dates of Hospitalization Feb 05, 2017 at 15:33 Discharge Diagnosis Discharge Diagnosis Typhilitis (neutropenic enterocolitis) in the setting of neutropenia; present on admission; ongoing- Pancytopenia secondary to ongoing capecitabine use; is on admission; resolved. Chronic HFpEF; present admission; stable. Hyperglycemia; present admission; resolved. Tachycardia with AICD pacer. Hyperlipidemia- CAD- Medication Instructions Additional med instructions - Continue Antibiotics Cipro and Flagyl to complete a 14 day course of therapy until 02/19. - Can resume all home meds except do not take Loperamide for loose stools. Patient Instructions Follow-up plan - Follow up with Dr. Cash, oncology, next week. - Follow up with Dr. Santos regarding optimizing heart failure medications. Follow-up Provider: Jorge Xie MD Follow-up with PCP in: 2 weeks Provider: Nacho Cash MD Follow-up in: 1 week Syed Long MD Feb 10, 2017 12:48
--- NOTE | 2017-02-10 15:32 | NUR ---
Discharge Pt discharged at 1531 in w/c to private vehicle with . Pt has home medications from pharmacy. Pt has rx's, discharge instructions and care notes. 2 PIV's removed intact. No pain, VSS, ROBERSON, A&O x 3. Has all belongings and all questions answered. Is still having mild diarrhea.
== END 2017-02-10 15:29 | disposition home or self-care (01) | DRG 391 ==
LOC: EDBD 12:01 → SED 12:01 → OSC 15:33
PROVIDERS: ADMIT Family Medicine; ATTEND Internal Medicine
PROC: 3E0D7RZ Introduction of Antiarrhythmic into Mouth and Pharynx, Via Natural or Artificial Opening (ICD-10-PCS; principal; 2017-02-05)
DX: K52.89 Other specified noninfective gastroenteritis and colitis (principal); D61.810 Antineoplastic chemotherapy induced pancytopenia; C22.1 Intrahepatic bile duct carcinoma; I50.22 Chronic systolic (congestive) heart failure; I10 Essential (primary) hypertension; K57.30 Diverticulosis of large intestine without perforation or abscess without bleeding; T45.1X5A Adverse effect of antineoplastic and immunosuppressive drugs, initial encounter; I07.1 Rheumatic tricuspid insufficiency; R73.9 Hyperglycemia, unspecified; R00.0 Tachycardia, unspecified; E78.2 Mixed hyperlipidemia; Z95.810 Presence of automatic (implantable) cardiac defibrillator; Z95.2 Presence of prosthetic heart valve; Z79.82 Long term (current) use of aspirin; I25.2 Old myocardial infarction

== ENCOUNTER 2017-02-12 17:38 | Inpatient (IN) | payer MEDICARE ==
[~2017-02-12] VITALS: Ht 182.9 cm; Wt 83.9 kg
[~2017-02-12 17:38] MED LIST changes: +ACYC400T2 PO; -CAPE500T PO; +CIPR-198 PO; -FUR20 PO; -IBUP200C PO; -LOPE1TAB13 PO; +METR500T PO; +ONDA-54 PO; -POTA20TA16 PO; +PRED5DRO6 LEFT_EYE; +PROC10TA PO; +SPIR25TA3 PO; +TORS10TA5 PO
[2017-02-12 17:48] VITALS: BP 98/53; PULSE 71; RESP 28; O2SAT 100
[2017-02-12] MEDS ORDERED: 0.9% Sodium Chloride 1,000 ML IV ONE ×2 (18:06→21:35)
[2017-02-12] MEDS ORDERED: Ondansetron 2 mg/mL 2 mL Inj IVPUSH ONE (18:10)
[2017-02-12] MEDS ORDERED: Iohexol 300 mg/mL 30 mL Inj PO ONE (18:10)
[2017-02-12 18:21] LABS: INR 0.96 ratio
[2017-02-12 18:25] LABS: Mean Corpuscular Hemoglobin 26.9 pg (27.0-35.0); Mean Corpuscular Volume 86.7 fL (81-100); Platelet Count 189 bil/L (150-400)
[2017-02-12 18:43] LABS: BASOPHILS % (AUTO) 0 % (0-3); EOSINOPHILS % (AUTO) 0 % (0-5); MONOCYTES % (AUTO) 3 % (4-12); NEUTROPHILS % (AUTO) 72 % (40-74)
[2017-02-12 18:58] LABS: APPEARANCE,URINE CLEAR (CLEAR,HAZY); COLOR,URINE YELLOW (YELLOW); OCCULT BLOOD,URINE NEGATIVE (NEGATIVE); PH,URINE 6.5 (5.0-8.0); UROBILINOGEN,URINE NORMAL (NORMAL)
--- NOTE | 2017-02-12 21:01 | DRSVH ---
PROCEDURE: CT ABDOMEN AND PELVIS WITH CONTRAST ([id number]) INDICATIONS: abdominal pain TECHNIQUE: After the administration of oral and intravenous contrast, 5 mm thick sections acquired from the diap hragms to the symphysis. 5 mm thick coronal and sagittal reformats were performed. For radiation do se reduction, the following was used: automated exposure control, adjustment of mA and/or kV accordi ng to patient size. COMPARISON: [facility], CT, CT ABD PELVIS W CON, 02/05/2017, 22:22. FINDINGS: Image quality: Good ABDOMEN: Lung bases: Lung bases are clear of acute disease. Heart size is enlarged Solid organs: The left lobe of the liver has been removed. The right lobe of the liver has several ar eas of focally decreased attenuation consistent with cysts. The spleen is normal. Gallbladder is not identified and presumably has been removed. Biliary system is non-dilated. Pancreas enhances normal ly. No adrenal nodules. Kidneys are normal in size and enhancement, without hydronephrosis. Renal c ortex is felt to be thinned bilaterally. Peritoneum and bowel: Small bowel loops show thickened hinds with some mucosal enhancement consisten t with an enteritis. The distribution is very similar to that on the CT of 02/05/17. No bowel obstruct ion is seen. No free air is seen. I do not appreciate any loss of contrast in the celiac or SMA vascu lature. There is a mild mistiness of the mesentery. Normal contrast is seen in the mesenteric veins a nd the portal system. Nodes and vessels: No retroperitoneal or mesenteric adenopathy. Vena cava is normal. Aorta is athero sclerotic and 3.5 cm caudal to the left renal artery there is a somewhat focal saccular aneurysm juan carlos uring up to 3.8 cm in greatest dimension. Thrombus is seen along the posterior slightly left sided wa ll of the aneurysm. The aneurysm is approximately 2-1/2 cm in length ending above the aortic bifurcat ion. Miscellaneous: No ventral hernias. PELVIS: Genitourinary: Bladder wall thickness is normal. There is a 3 cm bladder stone present. Prostate is mildly enlarged. Miscellaneous: No inguinal hernias or adenopathy. Bones: No suspicious bony lesions. No vertebral body compression fractures. IMPRESSION: 1. Distal ileum shows abnormal wall thickening and mucosal enhancement consistent with antritis. The pattern is similar to the previous CT. Cause is not identified. 2. No bowel obstruction. 3. There is a minimal amount peritoneal fluid in the cul-de-sac. 4. Multiple colonic diverticula but no diverticulitis identified. 3 cm bladder stone in the bladder. Small abdominal aortic aneurysm as described. Hepatic cysts. Previous resection of the left lobe of t he liver. Enlarged heart. Dictated by: Michael Marcial M.D. on 02/12/2017 at 20:58 on 02/12/2017 at 20:42 Dr. Chen is aware of these findings. Approved by: Michael Marcial M.D. on 02/12/2017 at 20:58
[2017-02-12 21:16] VITALS: BP 84/56; PULSE 94; RESP 21; O2SAT 100
[2017-02-12 21:37] VITALS: BP 91/55; PULSE 98; RESP 22; O2SAT 100
[2017-02-12 22:28] VITALS: PULSE 90
--- NOTE | 2017-02-12 22:30 | ED.REPORT ---
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 He rates his pain 8/10 at its maximum and 2-4/10 currently. There are no specific modifying factors of the pain. Associated sx include nausea, constipation since this afternoon, and mild shaking. He denies vomiting, constipation prior to today, fever, hematuria, hematochezia, sore throat, headache and unilateral weakness. The pt was admitted to the hospital last week for the same complaint. His CT at the time demonstrated several thickened loops of small bowel and associated mesenteric edema, scant increase in free fluid without evidence of microperforation. Nursing Notes Stated Complaint: ACUTE PANCREATITIS Chief Complaint: Male Abdominal Pain Nursing Notes Reviewed: Yes Allergies: Coded Allergies: lisinopril (Verified Adverse Reaction, Unknown, cough, 02/05/17) Scheduled Acyclovir (Acyclovir) 400 Mg Tablet 400 MG PO BID Amiodarone (Amiodarone) 200 Mg Tablet 200 MG PO DAILY Aspirin (Aspirin) 81 Mg Tablet 81 MG PO DAILY Ciprofloxacin (Ciprofloxacin) 500 Mg Tablet 500 MG PO BID Cyclosporine (Restasis) 1 Each Droperette 1 EACH BOTH_EYES BID Metoprolol Tartrate (Metoprolol Tartrate) 25 Mg Tablet 12.5 MG PO BID Metronidazole (Flagyl) 500 Mg Tablet 500 MG PO Q8H Prednisolone Acetate (Prednisolone Acetate) 5 Ml Drops.susp 1 GTT LEFT_EYE QAM Simvastatin (Simvastatin) 40 Mg Tablet 20 MG PO HS Spironolactone (Spironolactone) 25 Mg Tablet 25 MG PO DAILYWL Torsemide (Torsemide) 10 Mg Tablet 10 MG PO DAILY Scheduled PRN Nitroglycerin SL (Nitroglycerin SL) 0.4 Mg Tab.subl 0.4 MG SL Q5MIN PRN PRN For Chest Pain Ondansetron (Ondansetron) 8 Mg Tablet 8 MG PO q6 hours PRN PRN For Nausea Prochlorperazine Maleate (Prochlorperazine) 10 Mg Tablet 10 MG PO q4 hours PRN PRN For Nausea General Time Seen by MD: 18:05 Chief Complaint Abdominal pain Hx Obtained From: Patient Arrived By: Ambulance Sudden in Onset?: Yes Onset Occurred: 5 - 8 hours ago Symptom Duration: Intermittent Location: : Abdomen Quality: Painful Radiation: : Does not radiate Severity: Current: Pain level 2 out of 10 Severity: Maximum: Pain level 8 out of 10 Recent Healthcare: Recent doctor visit, Recent hospitalization Similar Sx Previous: Yes Past Medical History Past Medical History Notes: ED visit 04/06/15 for AICD firing and CP, AICD interrogated and discharge was for tachydysrhythmia, patient's furosemide was discontinued, patient is advised to continue aspirin lactone and HCTZ Past Medical History Per old reports: Admit in 07/2014 for AICD firing from [facility] Coronary artery disease, with a history of non ST elevation [place] in 2008 with balloon angioplasty and stenting of the LAD. 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 Dyslipidemia. Untreated sleep apnea. Uvulectomy. 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 02/26/2015 Uvulectomy Aortic Valve Replacement - bioprosthetic liver resection November 2016 Reports: Cholecystectomy Reports: Pacemaker insertion Smoking History Former Smoker Social History Alcohol Use: "Social" Drug Use: Denies drug use Other Social History: , Local resident Ambulatory Status Cane Review of Systems Full Review of Systems Ears / Nose / Throat: Denies: Sore throat GI: Reports: Abdominal pain, Constipation, Denies: Hematochezia, Vomiting Male: Denies Hematuria Neurologic: Reports: Shaking (mild), Denies: Headache, Weakness (unilateral weakness) Complete sys rev & neg: except as marked. Physical Exam Nursing note and vitals reviewed. Constitutional: Well-developed, well-nourished. Not diaphoretic. Head: Normocephalic and atraumatic. Mouth/Throat: Oropharynx is clear and moist. No oropharyngeal exudate. Eyes: EOM are normal. Pupils are equal, round, and reactive to light. Neck: Supple, no tracheal deviation. Cardiovascular: Normal rate,regular rhythm. Equal and intact distal pulses throughout. Pulmonary/Chest: Effort normal and breath sounds normal. No respiratory distress. Abdominal: Soft. No distension. Diffuse abdominal tenderness, worse in the epigastrium. No rebound, or guarding. Bowel sounds present. Musculoskeletal: Range of motion grossly intact, moving all extremities. No peripheral edema or tenderness appreciated. Neurological: AOx3. Grossly nonfocal exam. Strength and sensation intact and equal to bilateral upper and lower extremities. Skin: Warm and dry, no rashes or pallor appreciated. Psychiatric: Appropriate mood and affect. Behavior appears normal. Vital Signs Vital Signs Date Time Temp Pulse Resp B/P Pulse Ox O2 Delivery O2 Flow Rate FiO2 02/12/17 21:37 98 22 91/55 100 Room Air 02/12/17 21:16 94 21 84/56 100 Room Air 02/12/17 17:48 36.3 71 28 98/53 100 Initial VS: Reviewed Interpretation & Diagnostics Lab Results Interpretation Result Diagram: 02/12/17 1810 02/12/17 1810 Test 02/12/17 18:10 02/12/17 18:49 02/12/17 19:24 White Blood Count 6.3th/mm3 (3.8-10.1) Red Blood Count 3.91mil/mm3 (4.40-5.80) Hemoglobin 10.5g/dL (13.8-17.2) Hematocrit 33.9% (41.0-50.0) Mean Corpuscular Volume 86.7fL (81-100) Mean Corpuscular Hemoglobin 26.9pg (27.0-35.0) Mean Corpuscular Hemoglobin Concent 31.0% (32.0-37.0) Red Cell Distribution Width 26.9% (12.3-15.4) Platelet Count 189bil/L (150-400) Neutrophils (%) (Auto) 72% (40-74) Lymphocytes (%) (Auto) 14% (14-46) Monocytes (%) (Auto) 3% (4-12) Eosinophils (%) (Auto) 0% (0-5) Basophils (%) (Auto) 0% (0-3) Band Neutrophils % 8% (1-5) Metamyelocytes % 1% (0-0) Myelocytes % 2% (0-0) Prothrombin Time 10.3sec (8.1-12.5) Prothromb Time International Ratio 0.96ratio Sodium Level 137mEq/L (134-144) Potassium Level 4.1mEq/L (3.5-5.2) Chloride Level 98mEq/L (97-108) Carbon Dioxide Level 21mmol/L (18-29) Blood Urea Nitrogen 21mg/dL (8-27) Creatinine 1.17mg/dL (0.76-1.27) Estimat Glomerular Filtration Rate 64mL/min (>59) Glucose Level 104mg/dL (60-99) Calcium Level 8.2mg/dL (8.5-10.1) Magnesium Level 2.0mg/dL (1.6-2.6) Total Bilirubin 1.3mg/dL (0.0-1.2) Aspartate Amino Transf (AST/SGOT) 30U/L (0-50) Alanine Aminotransferase (ALT/SGPT) 19U/L (0-44) Alkaline Phosphatase 85U/L (25-160) Total Protein 5.4g/dL (6.4-8.4) Albumin 3.3g/dL (3.4-5.0) Lipase 1205U/L (13-60) Urine Color Yellow (YELLOW) Urine Appearance Clear (CLEAR,HAZY) Urine pH 6.5 (5.0-8.0) Urine Specific [place] <1.005 (1.003-1.035) Urine Protein Negativemg/dL (NEG,TRACE) Urine Glucose (UA) Negativemg/dL (NEGATIVE) Urine Ketones Negativemg/dL (NEGATIVE) Urine Occult Blood Negative (NEGATIVE) Urine Nitrite Negative (NEGATIVE) Urine Bilirubin Negative (NEGATIVE) Urine Urobilinogen Normalmg/dL (NORMAL) Urine Leukocyte Esterase Negative (NEGATIVE) Urine RBC 0-2/hpf (0-2) Urine WBC 0-5/hpf (0-5) Urine Epithelial Cells Occasional/hpf (NONE-MOD) Urine Crystals None seen (NONE SEEN) Urine Bacteria None/hpf (NONE-FEW) Urine Hyaline Casts None/lpf (NONE) Urine Granular Casts None seen (NONE SEEN) Urine Waxy Casts None seen (NONE SEEN) Urine Red Blood Cell Casts None seen (NONE SEEN) Urine White Blood Cell Casts None seen (NONE SEEN) Urine Mucus None seen (None Seen) Urine Trichomonas None seen (NONE SEEN) Urine Yeast None (NONE SEEN) Urinalysis Comment None Urine Culture Reflexed Not indicated Lactic Acid Level 1.9mmol/L (0.4-2.0) ECG Interpretation ECG Interpretation: A-fib/flutter and V-placed complexes Non-specific intraventricular conduction delay Non-specific repolarization abnormality, diffuse leads Artifact significant Time: 18:27 Interpreted by: ED physician CT Abd / Pelvis Interpretation IMPRESSION: 1. Distal ileum shows abnormal wall thickening and mucosal enhancement consistent with antritis. The pattern is similar to the previous CT. Cause is not identified. 2. No bowel obstruction. 3. There is a minimal amount peritoneal fluid in the cul-de-sac. 4. Multiple colonic diverticula but no diverticulitis identified. 3 cm bladder stone in the bladder. Small abdominal aortic aneurysm as described. Hepatic cysts. Previous resection of the left lobe of the liver. Enlarged heart. Dictated by: Michael Marcial M.D. on 02/12/2017 at 20:58 on 02/12/2017 at 20:42 Dr. Chen is aware of these findings. Approved by: Michael Marcial M.D. on 02/12/2017 at 20:58 Study type: Abdominal CT IV contrast Interpretation / Wet Read by: Sarah w radiologist Re-Eval/Medical Decision Med Decision/Clinical Course In summary, 81-year-old male with a complex past medical history including cholangiocarcinoma presenting to the ED for evaluation of abdominal pain. Differential is broad and includes small bowel obstruction, pancreatitis, nephrolithiasis, cholecystitis/choledocholithiasis, intra-abdominal mass/abscess , etc. He is having no other symptoms at this time, including no chest pain or shortness of breath. Urinalysis with no evidence of infection. Laboratory studies notable for a lipase of greater than 1200, bilirubin of 1.3, LFTs grossly within normal limits. His hemoglobin is 10.5, stable from previous. CT abdomen and pelvis shows no obvious etiology for his current symptoms, however did note multiple findings noted above. I discussed the case with the admitting team, who recommended GI consultation; Dr. Mcclellan states that there is no emergent need for intervention at this time, however an MRCP as an inpatient may be helpful. Plan admission for further management and evaluation of acute pancreatitis. Patient agreeable to the plan as stated, no further questions. Time of Eval: 21:07 Re-Evaluation/Progress Note: Rechecked pt. Discussed lab results, imaging results,diagnosis and plan to admit. Pt understands and agrees with the plan for admission. All questions addressed. Consultation #1: Referral / Consult Name: Jaclyn Buchanan DO Consulted With: Hospitalist Call Returned at: 21:22 Tool Or Die Drawing Checker: Will see patient, Agrees with eval, Agrees with plan, Accepts admit Note: Dr. Buchanan recommends consulting GI. Consultation #2: Referral / Consult Name: Bulmaro Mcclellan MD Call Returned at: 21:25 Tool Or Die Drawing Checker: Will see patient Note: Dr. Mcclellan recommends admit. Counseled Regarding: Diagnosis, Lab results, Need for admission Discharge & Departure Primary Impression: Acute pancreatitis Pancreatitis type: unspecified pancreatitis type Acute pancreatitis complication: unspecified Qualified Code: K85.90 - Acute pancreatitis without necrosis or infection, unspecified Disposition: ADMITTED TO HOSPITAL Discharge Condition All VS Reviewed: Yes Condition: Improved Referrals: Jorge Xie MD (PCP) Scribe Attestation Portions of this note were transcribed by Lorrie Ayala. I,, personally performed the history, physical exam and medical decision-making;I reviewed and confirmed the accuracy of the information in the transcribed note. Signed by Alba English. 02/12/17 copies to: Jorge Xie MD, William B MD Feb 12, 2017 22:30 Lorrie Ayala Feb 12, 2017 22:43 copies to: Jorge Xie MD, William B MD Feb 12, 2017 22:30 Lorrie Ayala Feb 12, 2017 22:43
[2017-02-12 22:36] VITALS: BP 112/74; PULSE 101; RESP 18; O2SAT 97
--- NOTE | 2017-02-12 23:56 | PCM.HPMED ---
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 He rates his pain 8/10 at its maximum and 2-4/10 currently. There are no specific modifying factors of the pain. Associated sx include nausea, constipation since this afternoon, and mild shaking. He denies vomiting, constipation prior to today, fever, hematuria, hematochezia, sore throat, headache and unilateral weakness. The pt was admitted to the hospital last week for the same complaint. His CT at the time demonstrated several thickened loops of small bowel and associated mesenteric edema, scant increase in free fluid without evidence of microperforation. In the ED the patients vitals were stable. CT Abdomen as above. Patient received : Morphine, 2 L IV NS. Review of Systems: A comprehensive review of systems was conducted with the patient and found to be negative except as above in the History of Present Illness. Allergies Coded Allergies: lisinopril (Verified Adverse Reaction, Unknown, cough, 02/05/17) Home Medications Acyclovir (Acyclovir) 400 Mg Tablet 400 MG PO BID Amiodarone (Amiodarone) 200 Mg Tablet 200 MG PO DAILY Aspirin (Aspirin) 81 Mg Tablet 81 MG PO DAILY Ciprofloxacin (Ciprofloxacin) 500 Mg Tablet 500 MG PO BID Cyclosporine (Restasis) 1 Each Droperette 1 EACH BOTH_EYES BID Metoprolol Tartrate (Metoprolol Tartrate) 25 Mg Tablet 12.5 MG PO BID Metronidazole (Flagyl) 500 Mg Tablet 500 MG PO Q8H Prednisolone Acetate (Prednisolone Acetate) 5 Ml Drops.susp 1 GTT LEFT_EYE QAM Simvastatin (Simvastatin) 40 Mg Tablet 20 MG PO HS Spironolactone (Spironolactone) 25 Mg Tablet 25 MG PO DAILYWL Torsemide (Torsemide) 10 Mg Tablet 10 MG PO DAILY Scheduled PRN Nitroglycerin SL (Nitroglycerin SL) 0.4 Mg Tab.subl 0.4 MG SL Q5MIN PRN PRN For Chest Pain Ondansetron (Ondansetron) 8 Mg Tablet 8 MG PO q6 hours PRN PRN For Nausea Prochlorperazine Maleate (Prochlorperazine) 10 Mg Tablet 10 MG PO q4 hours PRN PRN For Nausea PMH Admit in 07/2014 for AICD firing from [facility] Coronary artery disease, with a history of non ST elevation [place] in 2008 with balloon angioplasty and stenting of the LAD. 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 Dyslipidemia. Untreated sleep apnea. Uvulectomy. [place] x2 with angioplasty Right ventricular aneurysm Reports: Cancer, Hyperlipidemia, Hypertension ED visit 04/06/15 for AICD firing and CP, AICD interrogated and discharge was for tachydysrhythmia, patient's furosemide was discontinued, patient is advised to continue aspirin lactone and HCTZ Surgical History Ablation of right ventricular apical ventral tachycardia 02/26/2015 Uvulectomy Aortic Valve Replacement - bioprosthetic liver resection November 2016 Reports: Cholecystectomy Reports: Pacemaker insertion Family History Mother - "organs shut down" Father - Heart disease. Social History Hx Alcohol Use: Yes (ocassionally) Hx Substance Use: No Hx Tobacco Use: Yes (quit 19 yrs ago) Smoking Status: Former Smoker Exam Vital Signs Vital Sign - Last Date Time Temp Pulse Resp B/P Pulse Ox O2 Delivery O2 Flow Rate FiO2 02/12/17 22:36 36.9 101 18 112/74 97 Room Air Exam Constitutional: Well-developed, well-nourished. Not diaphoretic. Head: Normocephalic and atraumatic. Mouth/Throat: Oropharynx is clear and moist. No oropharyngeal exudate. Eyes: EOM are normal. Pupils are equal, round, and reactive to light. Neck: Supple, no tracheal deviation. Cardiovascular: Normal rate,regular rhythm. Equal and intact distal pulses throughout. Pulmonary/Chest: Effort normal and breath sounds normal. No respiratory distress. Abdominal: Soft. No distension. Diffuse abdominal tenderness, worse in the epigastrium. No rebound, or guarding. Bowel sounds present. Musculoskeletal: Range of motion grossly intact, moving all extremities. No peripheral edema or tenderness appreciated. Neurological: AOx3. Grossly nonfocal exam. Strength and sensation intact and equal to bilateral upper and lower extremities. Skin: Warm and dry, no rashes or pallor appreciated. Psychiatric: Appropriate mood and affect. Behavior appears normal. Lab and Diagnostics Result Diagram: 02/12/17180902/12/171809 X-Rays, CTs and MRIs CT ABDOMEN AND PELVIS WITH CONTRAST IMPRESSION: 1. Distal ileum shows abnormal wall thickening and mucosal enhancement consistent with antritis. The pattern is similar to the previous CT. Cause is not identified. 2. No bowel obstruction. 3. There is a minimal amount peritoneal fluid in the cul-de-sac. 4. Multiple colonic diverticula but no diverticulitis identified. 3 cm bladder stone in the bladder. Small abdominal aortic aneurysm as described. Hepatic cysts. Previous resection of the left lobe of the liver. Enlarged heart. Approved by: Michael Marcial M.D. on 02/12/2017 at 20:58 Assessment & Plan Mr. Mirza Goldsmith is a 81-year-old male with a past medical history most recently positive for cholangiocarcinoma and neutropenia with left lobe of the liver resection who presents with severe abdominal pain, worse on palpation. Lipase is 1400 on admit. Severe abdominal pain, present on admission. Active. - Abdominal pain with a history of cholangiocarcinoma and elevated lipase, likely pancreatitis. - Procalcitonin pending. - Consulted GI, recommendations and expertise appreciated. - Tele monitor. - Dilaudid for pain. - Lipase 1250 - NPO. - CT as above. - Patient has heart failure we will gently resuscitated with normal saline. Chronic systolic heart failure - Last echo was in July and showed ejection fraction of 40-45% - Do not see ARB; patient allergic to lisinopril - Continue Home Spironolactone 25 mg daily - Continue Torsemide 10 mg Daily - Sees Dr. Norman and Dr. Felix as outpatient. History of hepatic lobe intrahepatic cholangiocarcinoma with surgical resection , negative margins pathologically, and PET negative as of February 01. - Capecitabine weekly. - Upcoming dose and oncology appointment on Monday02/15/[address] Stevens. - Continue home Acyclovir. - CT as above. Normocytic Anemia, present on admission, is on admission. Active. - Patient receiving medication for ongoing cholangiocarcinoma treatment - Receives IV Iron as outpatient, with previous Hgb of 9.6, now 10.5. Protein calorie malnutrition, present on admission. Active. - Albumin 3.3 - Senior Security Architect consult when appropriate. Tachycardia with AICD pacer - Continue amiodarone 200 mg daily and metoprolol tartrate 25 mg BID. Hyperlipidemia - Hold home simvastatin 40 mg daily. CAD - nitroglycerin sublingual and aspirin Obstructive Sleep apnea - Patient prefers home CPAP unit, will accept O2 at night while inpatient. Acetaminophen for mild pain when necessary. Bowel regimen Senna and MiraLAX scheduled and PRN. Zofran when necessary for nausea and vomiting. SubQ heparin for now. SCDs in place. High-risk medications: IV Morphine Medication list to be reconciled by day team. Outpatient records do not match inpatient records and patient cannot remember. In specific does he still take prednisone, Acyclovir, Ciprofloxacin, Flagyl, prochlorperazine, Restasis. Patient Status: Patient is admitted under inpatient status with expected length of stay greater than 2 midnights due to severity of presenting symptoms, risk of adverse event, and complexity of treatment plan. Pain Evaluation: Adequate Pain Control Resuscitation Status: CPR: Attempt Resuscitation Attending Statement The patient was seen and examined together with house staff on 02/12/2017 and I agree with the history, exam and plan as outlined in the note above. PIYUSH CROW DO Feb 12, 2017 23:04 Jaclyn Buchanan DO Feb 13, 2017 03:16
[2017-02-13] VITALS (8 sets, daily range): BP systolic 91–105; BP diastolic 59–70; PULSE 73–82; RESP 18; O2SAT 96–99
[2017-02-13] MEDS: 0.9% Sodium Chloride 1,000 ML IV SCH ×2 (00:19→17:44)
--- NOTE | 2017-02-13 05:28 | NUR ---
New Admit Pt. has been admitted for Acute Pancreatitis which he was just seen for here a few days ago. D/C with plan for ABO at home but Pt. believes his symptoms are getting worse so he came back. VSS, OMI + so continues O2 monitoring in place. Has CPAP at home. O2 Sats stable throughout this shift. NPO per doctor H&P with no orders also Dilaudid for pain in H&P but no order. Pt. has not been in pain during this shift thou. Patent IV line running 50Ml/Hr NS per order. BM this AM. Telemetry showing SR 80'2 w/ Pacing and PVC's. Past Hx of multiple heart issues to include [place] CHF HTN and A Fib. Latest Dx of Liver CA. Resting comfortably in bed. WCTM
[2017-02-13] MEDS: Acyclovir 400 mg Tablet PO SCH ×2 (08:18→21:05)
[2017-02-13 08:41] LABS: Mean Corpuscular Hemoglobin 26.3 pg (27.0-35.0); Mean Corpuscular Volume 88.6 fL (81-100)
[2017-02-13 08:42] LABS: BASOPHILS % (AUTO) 0.3 % (0-3); EOSINOPHILS % (AUTO) 0.4 % (0-5); MONOCYTES % (AUTO) 10.5 % (4-12); NEUTROPHILS % (AUTO) 76.8 % (40-74); Platelet Count 167 bil/L (150-400)
--- NOTE | 2017-02-13 12:29 | NUR ---
US abdomen Dr. Pereira ordered US abdomen and states," keep him on clear liquids today and advance his diet tomorrow morning. patient aware.
[2017-02-13] MEDS ORDERED: HYDROmorphone 0.5 mg/0.5 mL iSecure Syringe IVPUSH PRN (14:15)
--- NOTE | 2017-02-13 14:19 | PCM.PNMED ---
Subjective Date of Service Feb 13, 2017 Subjective Following the one shot of morphine for his pain in the ER the abdominal pain resolved and has not returned. Abdomen less distended but remains firmer then usual. Seen by GI, note pending. No nausea. Exam Vital Signs Vital Sign - Last Date Time Temp Pulse Resp B/P Pulse Ox O2 Delivery O2 Flow Rate FiO2 02/13/17 14:11 36.6 73 18 91/59 97 Room Air Intake and Output 02/12/17 02/12/17 02/13/17 Cumulative From/Thru 15:00 23:00 07:00 02/12/17 17:48 - 02/13/17 05:39 Intake Total 2000 ml 233 ml 2233 ml Output Total 350 ml 350 ml Balance 2000 ml -117 ml 1883 ml Intake Oral 0 ml 0 ml IV Total 2000 ml 233 ml 2233 ml Output Urine Total 350 ml 350 ml # Bowel Movements 1 1 Exam Skin; warm and dry no rash HENT, adequate hydration EYES; marley eom intact CV; 3/6 systolic murmur, reg Resp; Clear anteriorly GI; firm abdomen with generalized tenderness more so LLQ. Neuro; CN 2-12 intact, no focal neuro deficits Lab and Diagnostics Result Diagram: 02/13/17 0610 02/13/17 0610 X-Rays, CTs and MRIs CT ABDOMEN AND PELVIS WITH CONTRAST IMPRESSION: 1. Distal ileum shows abnormal wall thickening and mucosal enhancement consistent with antritis. The pattern is similar to the previous CT. Cause is not identified. 2. No bowel obstruction. 3. There is a minimal amount peritoneal fluid in the cul-de-sac. 4. Multiple colonic diverticula but no diverticulitis identified. 3 cm bladder stone in the bladder. Small abdominal aortic aneurysm as described. Hepatic cysts. Previous resection of the left lobe of the liver. Enlarged heart. Approved by: Michael Marcial M.D. on 02/12/2017 at 20:58 Assessment & Plan Mr. Mirza Goldsmith is a 81-year-old male with a past medical history most recently positive for cholangiocarcinoma and neutropenia with left lobe of the liver resection who presents with severe abdominal pain, worse on palpation. Lipase is 1400 on admit. Acute Pancreatitis, present on admission. Active. - Abdominal pain with a history of cholangiocarcinoma and elevated lipase, likely pancreatitis. - Procalcitonin and CRP pending. 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 - Capecitabine weekly. - Upcoming dose and oncology appointment on Monday02/15/[address] Stevens. - Continue home Acyclovir. - CT as above. Normocytic Anemia, present on admission, is on admission. Active. - Patient receiving medication for ongoing cholangiocarcinoma treatment - Receives IV Iron as outpatient, with previous Hgb of 9.6, now 10.5. Protein calorie malnutrition, present on admission. Active. - Albumin 3.3 - [employer] Spray Unit Adjuster consult when appropriate. Tachycardia with AICD pacer - Continue amiodarone 200 mg daily and metoprolol tartrate 25 mg BID. Hyperlipidemia - Hold home simvastatin 40 mg daily. CAD - nitroglycerin sublingual and aspirin Obstructive Sleep apnea - Patient prefers home CPAP unit, will accept O2 at night while inpatient. Acetaminophen for mild pain when necessary. Bowel regimen Senna and MiraLAX scheduled and PRN. Zofran when necessary for nausea and vomiting. SubQ heparin for now. SCDs in place. High-risk medications: IV Morphine Medication list to be reconciled by day team. Outpatient records do not match inpatient records and patient cannot remember. In specific does he still take prednisone, Acyclovir, Ciprofloxacin, Flagyl, prochlorperazine, Restasis. Patient Status: Patient is admitted under inpatient status with expected length of stay greater than 2 midnights due to severity of presenting symptoms, risk of adverse event, and complexity of treatment plan. Disposition: -pcp is Dr. Xie -oncologist is Dr Stevens -vp client services is Dr Norman Resuscitation Status: CPR: Attempt Resuscitation Roxie Aguayo MD Feb 13, 2017 14:18
--- NOTE | 2017-02-13 14:53 | NUR ---
Social Work-initial assessment: Data:See initial assessment. Pt is a 81 y/o male who was admitted on 02/12/17 for acute pancreatitis per H&P. Pt's insurance is [employer] and PCP is Jorge Xie MD. SW met with pt at bedside, SW role explained. Pt is alert and oriented x3. Pt resides at home with his in a in single level home in [place]. Pt drives and uses a cane at baseline. Pt has no HH or SNF history. Pt has no [facility] care insurance or VA benefits. No concerns noted around pt's ability for self care. Pt has completed DPOA/ advanced directive, SW requested information to be brought in. Pt confirms his will provide transport home. SW provided pt with discharge planning checklist booklet and encouraged him to call with any questions, phone number provided. No anticipated discharge needs. SW will continue to follow if needs arise. Assessment:Pt who is independent at baseline. Plan:Pt to discharge home when medically stable via POV. No anticipated discharge needs. SW will continue to follow if needs arise. SUSY Sanchez Addendum: 02/13/17 at 1506 by ANURAG SWAIN Amended: Links added.
[2017-02-13] MEDS ORDERED: SIMV40TA5 PO (15:06)
[2017-02-13] MEDS ORDERED: CYCL1DRO BOTH_EYES (15:06)
--- NOTE | 2017-02-13 15:09 | NUR ---
Med Rec Reviewed all medications on Med Rec with patient. Pt able to recall all his medications. Paged Hospitalist on Green Team to notify him that Med Rec has been completed.
--- NOTE | 2017-02-13 16:15 | DRSVH ---
PROCEDURE: US ABDOMEN, LIMITED ([id number]) INDICATIONS: pancreatitis. r/o stones TECHNIQUE: Real-time focused scanning was performed of the abdomen, with image documentation. COMPARISON: [facility] Ultrasound, US, ABDOMEN LTD, 01/02/2017, 7:43. FINDINGS: No gallstones are seen, the common bile duct measures 4.2 mm in maximal dimension, liver is mildly to moderately increased in echotexture, consistent with underlying fatty infiltration. No so lid mass lesion within the liver is present. There is a bilobed cyst within the anterior right hepat ic lobe measuring up to 3.1 x 1.9 x 3.2 cm. The pancreas is not well-visualized due to overlying bowel gas. The gallbladder is surgically absent . IMPRESSION: No gallstones or biliary distention seen, fatty infiltration mild to moderate throughout the liver. No solid hepatic mass lesions. Pancreas is very poorly visualized due to overlying bowel gas. Dictated by: Wallace Rudd M.D. on 02/13/2017 at 16:12 Approved by: Wallace Rudd M.D. on 02/13/2017 at 16:14
--- NOTE | 2017-02-13 16:56 | NUR ---
Mentation Patient is alert and oriented X3. able to make needs know. Stable vital signs and stable oxygenation. patient receiving IV antibiotics for right lower lobe pneumonia. per CT angio no PE noted. Echocardiogram done this shift at bed side. No reports of further chest pain so far this shift. Blood sugars 367, 390, 154. Insulin given as ordered. Stress test with echo has been cancelled. PO scheduled blood pressure medications were given as ordered this AM. patient eating all meals sitting at the edge of the bed. no cardiac distress or respiratory distress noted. patient uses bed side commode with 1 PA. Stable mood. uses call light appropriately. call light with in reach for safety. continue to monitor. Addendum: 02/13/17 at 1717 by AIME MEI RN Charted in error, above charting for different patient.
--- NOTE | 2017-02-13 17:21 | NUR ---
Mentation patient is alert and oriented X3. Able to make needs known. Denies pain or discomfort. Continuous on clear liquid diet. Abdomen ultra sound done this shift. New orders for Stool PCR, sample collected and sent to lab. uses bed side commode. Call light with reach. stable mood. Med req completed by admit nurse. patient is unable to bring CPAP tonight, hospitalist aware. Continuous pulse ox to monitor oxygenation. Denies abdominal discomfort or pain. continue to monitor.
--- NOTE | 2017-02-13 19:22 | CONS ---
[address] [address] CONSULTATION REPORT PATIENT: MARGARETH LOCKETT : 1935 MR#: [id number] ADMIT: 02/12/2017 JOB ID: [id number] DATE OF SERVICE: 02/13/2017 REASON FOR CONSULTATION: Pancreatitis. HISTORY OF PRESENT ILLNESS: This is a pleasant, 81-year-old, male with history of cholangiocarcinoma, status post left lobe resection of the liver two months ago, undergoing chemotherapy, with history of myocardial infarction x2, aortic stenosis, status post aortic valve replacement with bicuspid valve, CHF, with EF 40%, ventricular tachycardia, dual pacemaker AICD placement, on amiodarone, sleep apnea, status post cholecystectomy, who presents for consultation for pancreatitis. The patient states he had epigastric pain for one day. The patient states that it was intermittent, comes and goes, worse with food, severe. Patient came to the emergency department. The patient states that during the emergency department, it was found that the patient had a lipase of 1205. Patient denies eating anything raw or unusual but states that he was taking simvastatin, a hypertension medication, prior to the epigastric pain. CT scan of the pelvis was performed on February 12, 2017, with contrast which shows abnormal wall thickening and mucosa consistent with colitis, similar to prior CT. No bowel obstruction. Minimal peritoneal fluid in the cul-de-sac. Multiple colonic diverticula, but no diverticulitis, 3 cm bladder stone, small abdominal aortic aneurysm and previous resected left lobe of the liver, enlarged heart. The patient denies rectal bleeding, nausea, vomiting, hematemesis, change in bowel habits, or unintentional weight loss. The patient denies family history of colon cancer, inflammatory bowel disease, or celiac disease. The patient states he had an upper endoscopy in the past, with unknown results, and never had a colonoscopy. PAST MEDICAL HISTORY: As stated above. PAST SURGERIES: As stated above. ALLERGIES: LISINOPRIL. HOME MEDICATIONS: Acyclovir, amiodarone, aspirin, ciprofloxacin, Restasis, metoprolol, Flagyl, prednisone, simvastatin, Aldactone, torsemide. SOCIAL HISTORY: He does drink alcohol occasionally. No IV drug use. Former smoker for 19 years. FAMILY HISTORY: Negative for colon cancer, inflammatory bowel disease, or celiac disease. REVIEW OF SYSTEMS: The patient denies headache, blurred vision, nausea, vomiting, chest pain, shortness of breath. Positive for abdominal pain. No skin rash or joint pain. Vital signs on presentation, temperature 36.5, pulse 76, respiratory rate 18, blood pressure 105/69, satting 99% on room air. General: No distress. Head: No scars. Eyes intact. Throat supple. Lungs: Clear to auscultation bilaterally. Cardiovascular: Regular rhythm and rate. Abdomen: Soft, nondistended, nontender. Normoactive bowel sounds. Extremities: No cyanosis, clubbing or edema. LABORATORIES: White count 7.2, hemoglobin 8.8, hematocrit 29, platelet count of 167. Sodium 137, potassium 4.3, chloride 101, bicarb 22, BUN 18, creatinine 1.0, glucose 100, lactic acid 1.9. Calcium 7.5. Magnesium 2.0. Total bili 1.4, AST 21, ALT 14, alk phos 58, total protein 4.1, albumin 2.6. Lipase 1205. PT 10.3, INR 0.9. ASSESSMENT AND PLAN: This is a pleasant, 81-year-old male, history of neutropenic enterocolitis, status post cholangiocarcinoma, status post left lobe resection, currently under chemotherapy , history of myocardial infarction, congestive heart failure, ejection fraction 40%, hypertension, atrial fibrillation, status post dual chamber automatic implantable cardioverter-defibrillator placement on amiodarone. Presents here with epigastric pain x1 day and with a lipase of 1205, consistent with acute pancreatitis. Cause of acute pancreatitis is unknown at this point in time. Surprisingly, the patient is tolerating clear liquid diet and doing well from a clinical standpoint. RECOMMENDATIONS: 1. Abdominal ultrasound. 2. CRISTHIAN, IgG4 level. 3. Lipid profile to evaluate for hypertriglyceridemia. 4. If patient tolerates clear liquid diet, then can advance to soft, low residue diet tomorrow morning, and discharge tomorrow if patient can tolerate that soft diet. 5. Cannot do an MRCP on the patient given the fact he has a pacemaker. Will consider outpatient endoscopic ultrasound to rule out pancreatic mass. Will continue to follow. [facility]
[2017-02-14] VITALS (7 sets, daily range): BP systolic 85–127; BP diastolic 59–83; PULSE 64–81; RESP 18; O2SAT 96–100
[2017-02-14] MEDS: 0.9% Sodium Chloride 1,000 ML IV SCH ×3 (04:27→20:11)
--- NOTE | 2017-02-14 05:26 | NUR ---
Uneventful Night: Pt rested intermittently during the night with no complaints of pain or discomfort. Denies cardiac pain, SOB or n/v. SBA for safety. Call light within reach, using appropriately. Frequent rounding in place. Pleasant and cooperative with care.
[2017-02-14 07:01] LABS: BASOPHILS % (AUTO) 0.9 % (0-3); EOSINOPHILS % (AUTO) 1.1 % (0-5); MONOCYTES % (AUTO) 12.6 % (4-12); Mean Corpuscular Hemoglobin 27.2 pg (27.0-35.0); Mean Corpuscular Volume 89.1 fL (81-100); NEUTROPHILS % (AUTO) 65.4 % (40-74); Platelet Count 218 bil/L (150-400)
--- NOTE | 2017-02-14 07:15 | PCM.PNSURG ---
Subjective Date of Service: Feb 14, 2017 Date of Service: Feb 14, 2017 Visit Information: Subjective: no acute events overnight. no abdominal pain this am. tolerated clear liquid yesterday. wants to eat Postop General: No Complaints Objective Vital Sign- Last 8 Hours Date Time Temp Pulse Resp B/P Pulse Ox O2 Delivery O2 Flow Rate FiO2 02/14/17 05:50 36.1 78 18 97/68 96 Room Air 02/14/17 01:12 36.2 74 18 97/61 97 Room Air Intake and Output- Last 8 Hour 02/14/17 Cumulative From/Thru 07:00 02/12/17 17:48 - 02/14/17 06:31 Intake Total 1316 ml 5829 ml Output Total 1150 ml 2950 ml Balance 166 ml 2879 ml Intake Oral 118 ml 1938 ml IV Total 1198 ml 3891 ml Output Urine Total 1150 ml 2950 ml Estimated Blood Loss 0 ml 0 ml # Bowel Movements 6 General: Oriented X3 Neck: Supple Lungs: Clear to Auscultation Heart: Exam Unremarkable Abdomen: Benign, Soft, Non-tender, Non-distended, Normoactive bowel tones Extremities: Distal Pulses Palpable Result Diagram: 02/13/17 0610 02/13/17 0610 Assessment & Plan Impression This is a pleasant, 81-year-old male, history of neutropenic enterocolitis, status post cholangiocarcinoma, status post left lobe resection, currently under chemotherapy history of myocardial infarction, congestive heart failure, ejection fraction 40%, hypertension, atrial fibrillation, status post dual chamber automatic implantable cardioverter-defibrillator placement on amiodarone. Presents here with epigastric pain x1 day and with a lipase of 1205, consistent with acute pancreatitis. Cause of acute pancreatitis is unknown at this point in time. Surprisingly, the patient is tolerating clear liquid diet and doing well from a clinical standpoint. abdominal u/s 02/13/2017- fatty liver RECOMMENDATIONS: 1. advance to soft low residue diet. if tolerate, then ok to d/c home today 2.. outpatient endoscopic ultrasound to rule out pancreatic mass. 3. f/u igg4, jakob levels as outpt. Problems: Resuscitation Status: CPR: Attempt Resuscitation Ezequiel Pereira MD Feb 14, 2017 07:15
[2017-02-14] MEDS: Acyclovir 400 mg Tablet PO SCH ×2 (08:42→20:10)
--- NOTE | 2017-02-14 10:13 | NUR ---
[facility] signed
--- NOTE | 2017-02-14 11:14 | NUR ---
Social Work-readiness for discharge: Data:EMR reviewed. Pt is on day 2 of hospitalization for acute pancreatitis per H&P. Pt is likely medically stable later today or tomorrow. Pt resides at home with his . No anticipated discharge needs. SW will continue to follow if needs arise. Assessment:Pt who is independent at baseline. Plan:Pt to discharge home when medically stable via POV. No anticipated discharge needs. SW will continue to follow if needs arise. SUSY Sanchez
--- NOTE | 2017-02-14 12:55 | PCM.PNMED ---
Subjective Date of Service Feb 14, 2017 Subjective Patient complaining of mild abdominal pain. His blood pressure is on the lower side. He received his metoprolol and spironolactone today in the morning. Exam Vital Signs Vital Sign - Last Date Time Temp Pulse Resp B/P Pulse Ox O2 Delivery O2 Flow Rate FiO2 02/14/17 10:17 78 02/14/17 09:20 36.2 18 85/59 100 Room Air Intake and Output 02/13/17 02/13/17 02/14/17 Cumulative From/Thru 15:00 23:00 07:00 02/12/17 17:48 - 02/14/17 06:31 Intake Total 2280 ml 1316 ml 5829 ml Output Total 1450 ml 1150 ml 2950 ml Balance 830 ml 166 ml 2879 ml Intake Oral 1820 ml 118 ml 1938 ml IV Total 460 ml 1198 ml 3891 ml Output Urine Total 1450 ml 1150 ml 2950 ml Estimated Blood Loss 0 ml 0 ml # Bowel Movements 5 6 Exam PHYSICAL EXAM: GENERAL: Alert, not in distress, cooperative HEAD: atraumatic, normocephalic, no bruises. EYES: TWAN, EOMI, anicteric, able to fully open and close eyelids SKIN: Skin color normal, turgor normal. No visible rashes or lesions. EAR, NOSE, MOUTH, THROAT: Lips, oral mucosa, tongue gums, oropharynx are moist , pink, no lesions. Ears normal appearance, no lesions. NECK: no jugulovenous distention, no carotid bruits, carotid pulse normal contour, No carotid bruit, no enlarged lymph nodes appreciated; supple ROM normal. RESPIRATORY: Lungs clear to auscultation. Good diaphragmatic excursion. Normal percussion sound. CARDIAC: normal S1 and S2; no rubs, murmurs, or gallops; regular rate and rhythm ABDOMEN: Abdomen soft, tender. BS normal. No masses or organomegaly. MUSCULOSKELETAL: ROM full, muscles are not tender EXTREMITIES: no pitting edema in LE, no new deformities or skin discoloration. NEURO: Alert, oriented X , Sensation grossly intact., Cranial nerves II- XII intact, Grossly normal motor function. PULSES: 2+ radial, 2+ carotid REVIEW OF SYSTEMS: GENERAL: no malaise, no fevers., SEE HPI HEENT: Negative for frequent or significant headaches All other reviewed and negative other than HPI. IVs and Medications Medications Reviewed: Medications were reviewed in detail Lab and Diagnostics Result Diagram: 02/14/1762402/14/17624 X-Rays, CTs and MRIs CT ABDOMEN AND PELVIS WITH CONTRAST IMPRESSION: 1. Distal ileum shows abnormal wall thickening and mucosal enhancement consistent with antritis. The pattern is similar to the previous CT. Cause is not identified. 2. No bowel obstruction. 3. There is a minimal amount peritoneal fluid in the cul-de-sac. 4. Multiple colonic diverticula but no diverticulitis identified. 3 cm bladder stone in the bladder. Small abdominal aortic aneurysm as described. Hepatic cysts. Previous resection of the left lobe of the liver. Enlarged heart. Approved by: Michael Marcial M.D. on 02/12/2017 at 20:58 Assessment & Plan Mr. Mirza Goldsmith is a 81-year-old male with a past medical history most recently positive for cholangiocarcinoma and neutropenia with left lobe of the liver resection who presents with severe abdominal pain, worse on palpation. Acute Pancreatitis, blood pressures on the lower side - stable - Abdominal pain with a history of cholangiocarcinoma and elevated lipase - Procalcitonin and CRP pending. - IV Dilaudid for pain prn - Lipase 1250 Plan - advance diet as tolerated - Continue with NS at 100 cc/hour - Hold metoprolol and spironolactone - Normal saline bolus Chronic systolic heart failure. Has AICD pacer. 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 - Capecitabine weekly. - Upcoming dose and oncology appointment on Monday02/15/[address] Stevens. - Continue home Acyclovir. Normocytic Anemia of chronic disease + iron deficiency - Stable - Patient receiving medication for ongoing cholangiocarcinoma treatment - Receives IV Iron as outpatient, with previous Hgb of 9.6, now 10.5. Protein calorie malnutrition - Stable - Albumin 3.3 - Analysis Director consult Obstructive Sleep apnea - Patient prefers home CPAP unit, will accept O2 at night while inpatient. Acetaminophen for mild pain when necessary. Bowel regimen Senna and MiraLAX scheduled and PRN. Zofran when necessary for nausea and vomiting. SubQ heparin for now. SCDs in place. High-risk medications: IV Morphine Medication list to be reconciled by day team. Outpatient records do not match inpatient records and patient cannot remember. In specific does he still take prednisone, Acyclovir, Ciprofloxacin, Flagyl, prochlorperazine, Restasis. Patient Status: Patient is admitted under inpatient status with expected length of stay greater than 2 midnights due to severity of presenting symptoms, risk of adverse event, and complexity of treatment plan. Disposition: -pcp is Dr. Xie -oncologist is Dr Stevens -blaster helper is Dr Norman Disposition: discharge in 1-3 days after patient improves. Plan of care discussed with patient, nurse; Labs, radiology tests, ECG reviewed. Plan of care, medication side effects, home medication, diagnostic procedures and available alternatives were discussed and reviewed with patient. All questions answered. Patient verbalized understanding, approved and agreed to plan of care. Given patient's current condition, I certify, in my opinion inpatient services greater than two midnights are medically necessary for this patient. Please see H&P and MD progress notes for additional information about patient's course of treatment. VTE Mechanical Devices: Venous Foot Pump Resuscitation Status: CPR: Attempt Resuscitation Carlos A Espino MD Feb 14, 2017 12:55 Carlos A Espino MD Feb 14, 2017 12:55
[2017-02-15 00:24] VITALS: BP 101/66; PULSE 69; RESP 18; O2SAT 97
[2017-02-15 05:05] VITALS: BP 126/88; PULSE 92; RESP 18; O2SAT 96
[2017-02-15] MEDS: 0.9% Sodium Chloride 1,000 ML IV SCH (06:40)
--- NOTE | 2017-02-15 07:01 | PCM.PNSURG ---
Subjective Date of Service: Feb 15, 2017 Date of Service: Feb 15, 2017 Visit Information: Subjective: pt tolerated soft diet yesterday. No abdominal pain. Pt walking around feeling great per pt. Postop General: No Complaints Objective Vital Sign- Last 8 Hours Date Time Temp Pulse Resp B/P Pulse Ox O2 Delivery O2 Flow Rate FiO2 02/15/17 05:05 36.0 92 18 126/88 96 Room Air 02/15/17 00:24 36.7 69 18 101/66 97 Room Air Intake and Output- Last 8 Hour 02/15/17 Cumulative From/Thru 07:00 02/12/17 17:48 - 02/15/17 06:47 Intake Total 1660 ml 97860 ml Output Total 3150 ml Balance 1660 ml 7196 ml Intake Oral 400 ml 3768 ml IV Total 1260 ml 6578 ml Output Urine Total 3150 ml Estimated Blood Loss 0 ml # Voids 6 9 # Bowel Movements 8 General: Oriented X3 Neck: Supple Lungs: Clear to Auscultation Heart: Exam Unremarkable Abdomen: Benign, Soft, Non-tender, Non-distended, Normoactive bowel tones Extremities: Distal Pulses Palpable Result Diagram: 02/14/1762402/14/1725 Assessment & Plan Impression This is a pleasant, 81-year-old male, history of neutropenic enterocolitis, status post cholangiocarcinoma, status post left lobe resection, currently under chemotherapy history of myocardial infarction, congestive heart failure, ejection fraction 40%, hypertension, atrial fibrillation, status post dual chamber automatic implantable cardioverter-defibrillator placement on amiodarone. Presents here with epigastric pain x1 day and with a lipase of 1205, consistent with acute pancreatitis. Cause of acute pancreatitis is unknown at this point in time. Surprisingly, the patient is tolerating clear liquid diet and doing well from a clinical standpoint and now tolerating soft diet without pain abdominal u/s 02/13/2017- fatty liver RECOMMENDATIONS: 1. advance diet as tolerated. 2. OK to d/c home today 3.. outpatient endoscopic ultrasound to rule out pancreatic mass. 4. f/u igg4, jakob (neg) levels as outpt. will sign off Problems: Resuscitation Status: CPR: Attempt Resuscitation Ezequiel Pereira MD Feb 15, 2017 07:01
[2017-02-15] MEDS: Acyclovir 400 mg Tablet PO SCH (09:24)
[2017-02-15 10:28] VITALS: PULSE 68
[2017-02-15 13:18] VITALS: BP 106/58; PULSE 88; RESP 18; O2SAT 96
[2017-02-15 13:20] VITALS: BP 100/61; PULSE 62; RESP 18; O2SAT 99
--- NOTE | 2017-02-15 14:14 | PCM.DIMED ---
Discharge Instructions Date of Service Feb 15, 2017 Dates of Hospitalization Feb 12, 2017 at 21:38 Discharge Diagnosis Discharge Diagnosis Acute pancreatitis Chronic systolic heart failure, Has AICD pacer. 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 Normocytic Anemia of chronic disease + iron deficiency Protein calorie malnutrition Obstructive Sleep apnea Medication Instructions Additional med instructions Follow up with your primary care doctor, milk handler, oncologist for further evaluation and management of her medical problems Diet Discharge Diet: Low fat, Low Sodium, Heart Healthy Activity Discharge Activity: Other (avoid heavy physical work or exertion) Call your provider Call your provider for: Fever or Chills, Shortness of breath, Bleeding, Chest pain, Vomitting, Excessive diarrhea, Weakness (unilateral) Patient Instructions Patient Instructions I held metoprolol and torsemide on discharge because her blood pressure was on the lower side.Follow-up with the milk handler for further management of your chronic systolic heart. Once her blood pressure improves you may need to go back on these medications. He must seek medical attention if he notices increased shortness of breath, lower extremity edema, palpitation, weakness. Follow-up plan Follow-up with PCP and cardiology in 2-3 days after discharge Follow-up with PCP in: Other (2-3 days after discharge) Follow-up in: Other (Follow up with Matzo Forming Machine Operator in 3-5 days after discharge) Carlos A Espino MD Feb 15, 2017 14:14
--- NOTE | 2017-02-15 14:21 | PCM.DC.MED ---
Discharge Summary Date of Service Feb 15, 2017 Dates of Hospitalization Date of Hospital Admission Feb 12, 2017 at 21:38 Date of Discharge: Feb 15, 2017 Providers: Admitting Physician: Jaclyn Buchanan DO Primary Care Physician: Jorge Xie MD Attending Physician: Carlos A Espino MD Diagnosis at Time of Discharge Diagnosis at Time of Discharge Acute pancreatitis Chronic systolic heart failure, Has AICD pacer. 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 Normocytic Anemia of chronic disease + iron deficiency Protein calorie malnutrition Obstructive Sleep apnea Procedures XRay, CTs & MRIs CT ABDOMEN AND PELVIS WITH CONTRAST IMPRESSION: 1. Distal ileum shows abnormal wall thickening and mucosal enhancement consistent with antritis. The pattern is similar to the previous CT. Cause is not identified. 2. No bowel obstruction. 3. There is a minimal amount peritoneal fluid in the cul-de-sac. 4. Multiple colonic diverticula but no diverticulitis identified. 3 cm bladder stone in the bladder. Small abdominal aortic aneurysm as described. Hepatic cysts. Previous resection of the left lobe of the liver. Enlarged heart. Approved by: Michael Marcial M.D. on 02/12/2017 at 20:58 Hospital Course Principle Diagnosis: Acute pancreatitis Secondary Diagnosis: Chronic systolic heart failure, Has AICD pacer. 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 Normocytic Anemia of chronic disease + iron deficiency Protein calorie malnutrition Obstructive Sleep apnea Physical exam: patient was seen and examined on the day of discharge Operations During Hospitalization: none CONSULTATIONS: none Hospital Course: Mr. Mirza Goldsmith is a 81-year-old male hx of neutropenic enterocolitis, left lobe liver mass identified as cholangiocarcinoma s/p lobe resection undergoing treatment with capecitabine, [place], CHF, HTN and A-fib (s/p dual chamber AICD placement on long-term amiodarone) who presents to the ED via EMS complaining of intermittent epigastric abdominal pain, nausea. The pt was admitted to the hospital 1 week prior to this admission for the same complaint. His CT at the time demonstrated several thickened loops of small bowel and associated mesenteric edema, scant increase in free fluid without evidence of microperforation. This time lipase was elevated. Patient was diagnosed with acute pancreatitis. He was treated with nothing by mouth, IV fluids and IV pain medications and antinausea medications. On the day of discharge patient was able to tolerate food and did not have any symptoms. After patient improved he was discharged home with recommendation to follow up with his primary care doctor and critical care technician for further evaluation and management of his health. On the day of discharge I held his home medications metoprolol and torsemide because patient's blood pressure was in the lower side. Patient to follow-up with his primary care doctor and critical care technician for further adjustment of his heart medications. He also should follow-up with his oncologist. Patient Condition @ Discharge: good Discharge Disposition: home Discharge Activity: resume regular activity, patient was advised to avoid heavy physical work or exertion Discharge Diet: regular diet, heart healthy, low fat, low salt, high fiber Information Provided to Patient: information about discharge medications Discharge Medications: I discussed with patient medication dosage, usage, goals of therapy, side effects, alternatives. During discharge patient was allert, oriented, fully competent, able to make own informed decisions. We discussed possible severe side effects, adverse reactions, benefits, risks, alternatives of current and newly prescribed medications and diagnostic procedures. Patient verbalized understanding and agreed to current plan of care and discharge. TIME SPENT IN DISCHARGE ACTIVITY: Face to face activity greater then 30 minutes spent in discharge activity. 1. Discussed with patient re: discharge plan of care/treatment, and follow up care/services. 2. Patient agreed with discharge plan and further plan of care, all questions were answered/addressed, no further questions at the time of discharge. Exam Vital Signs (Last) Date Time Temp Pulse Resp B/P Pulse Ox O2 Delivery O2 Flow Rate FiO2 02/15/17 13:20 36.5 62 18 100/61 99 Room Air Test 02/12/17 18:10 02/12/17 18:49 02/12/17 19:24 02/13/17 06:10 Band Neutrophils % 8% (1-5) Metamyelocytes % 1% (0-0) Myelocytes % 2% (0-0) Prothrombin Time 10.3sec (8.1-12.5) Prothromb Time International Ratio 0.96ratio Magnesium Level 2.0mg/dL (1.6-2.6) Urine Color Yellow (YELLOW) Urine Appearance Clear (CLEAR,HAZY) Urine pH 6.5 (5.0-8.0) Urine Specific [place] <1.005 (1.003-1.035) Urine Protein Negativemg/dL (NEG,TRACE) Urine Glucose (UA) Negativemg/dL (NEGATIVE) Urine Ketones Negativemg/dL (NEGATIVE) Urine Occult Blood Negative (NEGATIVE) Urine Nitrite Negative (NEGATIVE) Urine Bilirubin Negative (NEGATIVE) Urine Urobilinogen Normalmg/dL (NORMAL) Urine Leukocyte Esterase Negative (NEGATIVE) Urine RBC 0-2/hpf (0-2) Urine WBC 0-5/hpf (0-5) Urine Epithelial Cells Occasional/hpf (NONE-MOD) Urine Crystals None seen (NONE SEEN) Urine Bacteria None/hpf (NONE-FEW) Urine Hyaline Casts None/lpf (NONE) Urine Granular Casts None seen (NONE SEEN) Urine Waxy Casts None seen (NONE SEEN) Urine Red Blood Cell Casts None seen (NONE SEEN) Urine White Blood Cell Casts None seen (NONE SEEN) Urine Mucus None seen (None Seen) Urine Trichomonas None seen (NONE SEEN) Urine Yeast None (NONE SEEN) Urinalysis Comment None Urine Culture Reflexed Not indicated Lactic Acid Level 1.9mmol/L (0.4-2.0) Total Bilirubin 1.4mg/dL (0.0-1.2) Aspartate Amino Transf (AST/SGOT) 21U/L (0-50) Alanine Aminotransferase (ALT/SGPT) 14U/L (0-44) Alkaline Phosphatase 68U/L (25-160) Total Protein 4.1g/dL (6.4-8.4) Albumin 2.6g/dL (3.4-5.0) Triglycerides Level 96mg/dL (0-149) Cholesterol Level 65mg/dL (100-199) LDL Cholesterol, Calculated 16.800mg/dL (0-99) VLDL Cholesterol 19.200mg/dL HDL Cholesterol 29mg/dL (>39) Cholesterol/HDL Ratio 2.24 (0.0-4.4) Anti-Nuclear Antibody Screen Negative (Negative) Test 02/14/17 06:25 White Blood Count 4.4th/mm3 (3.8-10.1) Red Blood Count 3.31mil/mm3 (4.40-5.80) Hemoglobin 9.0g/dL (13.8-17.2) Hematocrit 29.5% (41.0-50.0) Mean Corpuscular Volume 89.1fL (81-100) Mean Corpuscular Hemoglobin 27.2pg (27.0-35.0) Mean Corpuscular Hemoglobin Concent 30.5% (32.0-37.0) Red Cell Distribution Width 27.7% (12.3-15.4) Platelet Count 218bil/L (150-400) Neutrophils (%) (Auto) 65.4% (40-74) Lymphocytes (%) (Auto) 13.6% (14-46) Monocytes (%) (Auto) 12.6% (4-12) Eosinophils (%) (Auto) 1.1% (0-5) Basophils (%) (Auto) 0.9% (0-3) Sodium Level 138mEq/L (134-144) Potassium Level 4.0mEq/L (3.5-5.2) Chloride Level 103mEq/L (97-108) Carbon Dioxide Level 23mmol/L (18-29) Blood Urea Nitrogen 12mg/dL (8-27) Creatinine 1.04mg/dL (0.76-1.27) Estimat Glomerular Filtration Rate 73mL/min (>59) Glucose Level 84mg/dL (60-99) Calcium Level 7.7mg/dL (8.5-10.1) C-Reactive Protein 5.4mg/dL (0.0-0.5) Lipase 195U/L (13-60) Discharge Medications Discharge Medications Acyclovir (Acyclovir) 400 Mg Tablet 400 MG PO BID (Reported) Amiodarone (Amiodarone) 200 Mg Tablet 200 MG PO DAILY (Reported) Aspirin (Aspirin) 81 Mg Tablet 81 MG PO DAILY (Reported) Cyclosporine (Restasis) 1 Each Droperette 1 EACH BOTH_EYES BID (Reported) Metoprolol Tartrate (Metoprolol Tartrate) 25 Mg Tablet 12.5 MG PO BID (Reported ) Simvastatin (Simvastatin) 40 Mg Tablet 20 MG PO HS (Reported) Spironolactone (Spironolactone) 25 Mg Tablet 25 MG PO DAILYWL (Reported) Torsemide (Torsemide) 10 Mg Tablet 10 MG PO DAILY (Reported) As needed Nitroglycerin SL (Nitroglycerin SL) 0.4 Mg Tab.subl 0.4 MG SL Q5MIN PRN PRN For Chest Pain (Reported) Additional med instructions Follow up with your primary care doctor, critical care technician, oncologist for further evaluation and management of her medical problems Followup Plan Follow-up plan Follow-up with PCP and cardiology in 2-3 days after discharge Discharge Diet: Low fat, Low Sodium, Heart Healthy Discharge Activity: Other (avoid heavy physical work or exertion) Patient Instructions I held metoprolol and torsemide on discharge because her blood pressure was on the lower side.Follow-up with the critical care technician for further management of your chronic systolic heart. Once her blood pressure improves you may need to go back on these medications. He must seek medical attention if he notices increased shortness of breath, lower extremity edema, palpitation, weakness. Follow-up with PCP in: Other (2-3 days after discharge) Follow-up in: Other (Follow up with Ob/Gyn Nurse in 3-5 days after discharge) CHF Clinic: Other (3-4 days after discharge) Carlos A Espino MD Feb 15, 2017 14:20
--- NOTE | 2017-02-15 15:00 | NUR ---
Social Work-discharge: Data:EMR reviewed. Pt is on day 3 of hospitalization for acute pancreatitis per H&P. Pt is medically stable today. Pt resides at home with his . Pt has been up independent in his room. No discharge needs identified. All updated and agreeable to plan. Assessment:Pt who is independent at baseline. Plan:Pt to discharge home today via POV. No discharge needs identified. All updated and agreeable to plan. SUSY Sanchez
--- NOTE | 2017-02-15 15:45 | NUR ---
Discharge Patient discharge to home with all belongings at 1533. Explained to patient when next medications are due and discharge instructions. Patient verbalized understanding. Dc'd IV intact. Dc'd telemetry. Vitals stable. Patient left floor via wheelchair accompanied by and CHANGE MANAGEMENT COORDINATOR with no signs of distress.
== END 2017-02-15 15:33 | disposition home or self-care (01) | DRG 439 ==
LOC: EDBD 17:38 → SED 17:38 → EDUNIT# 17:38 → MPC 21:38
PROVIDERS: ADMIT Internal Medicine; ATTEND Internal Medicine
PROC: 3E0D7RZ Introduction of Antiarrhythmic into Mouth and Pharynx, Via Natural or Artificial Opening (ICD-10-PCS; principal; 2017-02-15)
DX: K85.90 Acute pancreatitis without necrosis or infection, unspecified (principal); E46 Unspecified protein-calorie malnutrition; I50.22 Chronic systolic (congestive) heart failure; C22.1 Intrahepatic bile duct carcinoma; I48.2 Chronic atrial fibrillation; I25.10 Atherosclerotic heart disease of native coronary artery without angina pectoris; M18.9 Osteoarthritis of first carpometacarpal joint, unspecified; E78.5 Hyperlipidemia, unspecified; I10 Essential (primary) hypertension; D63.8 Anemia in other chronic diseases classified elsewhere; D50.9 Iron deficiency anemia, unspecified; G47.33 Obstructive sleep apnea (adult) (pediatric); Z95.2 Presence of prosthetic heart valve; Z87.891 Personal history of nicotine dependence; Z79.82 Long term (current) use of aspirin; Z95.5 Presence of coronary angioplasty implant and graft; Z79.01 Long term (current) use of anticoagulants; I25.2 Old myocardial infarction; Z95.810 Presence of automatic (implantable) cardiac defibrillator